=== PATIENT | male | born 1950 | race Caucasian/White ===

== ENCOUNTER → 2019-07-27 10:50 | Outpatient (BNVA) | payer OTHER, SELFPAY | PROVIDERS: Family Provider Family Medicine; PCP Family Medicine; Visit Provider Podiatrist Foot & Ankle Surgery | DX: Z48.89 Encounter for other specified surgical aftercare (principal); S92.512A Displaced fracture of proximal phalanx of left lesser toe(s), initial encounter for closed fracture; X58.XXXA Exposure to other specified factors, initial encounter; Z89.422 Acquired absence of other left toe(s) | CPT/HCPCS: 73630 ==

== ENCOUNTER 2021-08-12 17:44 | Inpatient (IN) | payer OTHER, MEDICARE, SELFPAY ==
[2021-08-12] VITALS (13 sets, daily range): BP systolic 114–221; BP diastolic 64–125; PULSE 68–120; RESP 22–32; TEMP 36.6; O2SAT 56–96; BMI 37.5
--- NOTE | 2021-08-12 17:56 | W.ED.SOB ---
HPI - SOB/Dyspnea General: Chief Complaint: Shortness of Breath/Dyspnea Stated Complaint: SOB Time Seen by Provider: 08/12/21 17:55 Source: patient and family (spouse) Mode of arrival: ambulatory Limitations: no limitations History of Present Illness: HPI Narrative: The patient presents to the emergency department accompanied by his spouse. Together they provide information he has been increasingly short of breath over the last 2 days with which has increased significantly this afternoon. He has a history of diabetes as well as a questionable history of heart failure. No history of arrhythmias that either of them are aware. He has never had an OH that he is aware of. He denies any fevers chills etc. He has been taking all his medications faithfully. MD elicited complaint: shortness of breath Timing: progressively worsening Severity: severe Exacerbating factors: lying flat and exertion Relieving factors: oxygen Known history of: congestive heart failure and diabetes Associated symptoms: Reports orthopnea; Deny abdominal pain, chest pain, extremity pain, fever(s), nausea, palpitations, polydipsia, polyuria or vomiting Review of Systems Const: Denies: fever(s) or chills Eyes: Denies: change in vision or blurry vision ENMT: Denies: throat pain, odynophagia or hoarseness Card: Reports: edema, dyspnea on exertion and orthopnea; Denies: chest pain, palpitations or irregular heart rhythm Resp: Reports: dyspnea; Denies: productive cough, non-productive cough or wheezing GI: Denies: abdominal pain, nausea or vomiting : Denies: flank pain, difficulty urinating or dysuria Musc: Reports: extremity swelling; Denies: neck pain, back pain or extremity pain Skin/Breast: Denies: rash or pruritus Neuro: Reports: numbness in extremities (Chronic); Denies: headache(s) or weakness in extremities Psych: Denies: anxiety, depression or hopelessness Endo: Denies: polyuria or polydipsia Pardeep/Lymph: Denies: easy bruising PFSH ED PFSH: Medical History Chronic kidney disease, stage 1 Diabetes 1.5, managed as type 2 Essential (primary) hypertension History of amputation of great toe Osteomyelitis, unspecified Peripheral vascular disease, unspecified Venous insufficiency Surgical History History of amputation of lesser toe of left foot Family History Father Cancer Stroke Mother Diabetes Denies family history of CAD (coronary artery disease) Clotting disorder Dementia Hyperlipidemia Psychiatric illness Chronic kidney disease (CKD) Suicide Anesthesia complication Bleeding disorder Family history of premature coronary artery disease Lung disease Hypertension Social History Smoking and tobacco status: former smoker Quit status (tobacco): has quit using tobacco Second hand smoke exposure: No Smoking risk assessment/counseling performed?: No Alcohol intake: never Desire information about alcohol rehabilitation?: No Counseling given: No Last alcohol use date: 07/24/18 Desire information about substance/drug rehabilitation?: No Counseling given: No Adopted: No Caregiver/support person: Yes Lives independently: Yes Household members: spouse Housing: House Marital status: Number of children: 6 Number of grandchildren: 11 Highest education level completed: Bachelor's Degree service: Yes Current occupational status: retired Pets and animals: Yes History of recent travel: No Leisure activites: fishing Current gender identity: Male Cindy/Lutheran: Zoroastrian Special cindy needs: No Agree to transfusion: Yes Financial difficulty paying for basics: Not Very Hard Physical Exam Narrative: EXAM NARRATIVE: Patient is clearly anxious, having difficulty breathing and is only able to nod or shake his head yes or no to questions. Const: COMMON NORMALS: patient oriented x3 GENERAL APPEARANCE: in distress and anxious NUTRITIONAL APPEARANCE: obese HENMT: COMMON NORMALS: normocephalic, external ears normal, Normal nasal mucous membranes and turbinates present, moist oral mucous membranes and oropharynx normal HEAD & SCALP: normocephalic NOSE: Normal nasal mucous membranes and turbinates present EXTERNAL EAR: Yes external ears normal Eye: COMMON NORMALS: Equal, round and reactive pupils present and EOMs intact bilaterally PUPIL: Yes Equal, round and reactive pupils present Neck/C-Spine: COMMON NORMALS: full ROM, no lymphadenopathy, no meningeal signs, no JVD and No carotid bruits Lymph: LYMPHATIC: no lymphadenopathy noted Chest: COMMONS NORMALS: normal inspection of the chest and normal palpation of entire chest wall Resp: EFFORT & INSPECTION: Yes tachypneic, Yes labored and Yes uses accessory muscles AUSCULTATION: crackles (Crackles in both lung doss all the way up to scapula level.) Cardio: COMMON NORMALS: no JVD, No murmurs present (Cardio) and Peripheral pulses 2+ throughout RATE: tachycardic PERIPHERAL PULSES: Peripheral pulses 2+ throughout GI: COMMON NORMALS: Soft to palpation, non-tender and no masses PALPATION: Yes Soft to palpation : COMMON NORMALS: Yes no CVA tenderness BLADDER/KIDNEY EXAM: Yes no CVA tenderness Back/Pelvis: COMMON NORMALS: no CVA tenderness, thoracic and lumbar spine normal to inspection and thoraco-lumbar ROM normal Extremity: COMMON NORMALS: normal to inspection, full ROM and capillary refill normal Neuro: COMMON NORMALS: patient oriented x3, moves all extremities, no focal motor deficits and no sensory deficits noted MENINGEAL SIGNS: Yes no meningeal signs Course Reevaluation(s): Reevaluation #1: We have instituted bilevel positive pressure noninvasive ventilatory support as well as sublingual nitroglycerin. The patient's pressure has improved and he is subjectively improved. We will initiate IV Lasix. We will follow his response and start nitroglycerin drip if indicated. Time: 18:19 Reevaluation #2: Patient states he feels significantly improved. He is able to interact with more conversational sentences. His pressure is noted to be down to 116/78. He does have a slight increase in his troponin as well as a BNP elevation. We will go ahead and continue BiPAP and diuresis and repeat EKG. Time: 18:51 Reevaluation #3: Repeat EKG with a heart rate now down and is tracing is much more interpretable shows he has ST elevation in limb leads III with ST depression in limb lead I and aVL with some ST elevation V3 suggestive of possible inferior wall myocardial infarction. The patient was never having chest pain upon presentation still denies chest pain. I have notified cardiology who is in route. They will evaluate for possible adult basic education manager. His initial EKG was indeterminate. Time: 19:25 Additional Reevaluation(s): RN and I had a discussion with both patient and his spouse regarding his reluctance to take heparin. He declined initially but did take the aspirin. We also had a discussion regarding his resuscitation wishes and when he was asked whether he wanted resuscitation his answer was I suppose . Vital Signs: Vital signs: Vital Signs Pulse Rate 90 08/12/21 19:40 Respiratory Rate 22 H 08/12/21 19:40 Blood Pressure 115/79 08/12/21 19:40 Pulse Oximetry 95 08/12/21 19:40 MDM - SOB/Dyspnea Medical Decision Making Patient came to the emergency department with history of progressive intermittent worsening shortness of breath without chest pain. On presentation he was significantly dyspneic with a tachycardic EKG which was nondiagnostic by my determination at his initial presentation. Again he was without chest pain and had dyspnea only. Subsequent evolution and evaluation of this patient's clinical condition revealed that he improved significantly with sublingual nitroglycerin and BiPAP. His chest x-ray was not available for my viewing but was interpreted as bilateral patchy infiltrates by radiology suggestive of possible infection but given his clinical scenario most likely suggested pulmonary congestion. Initial troponin was slightly elevated and subsequently a repeat EKG revealed a much more interpretable EKG with ST elevations in both inferior precordial leads with reciprocal changes noted as well consistent with acute OH. The patient was given aspirin as well as cardiology was consulted and arrived to evaluate the patient for angiography and possible treatment. The patient was significantly clinically improved and again remained pain-free throughout his emergency department evaluation. Should be noted also that we discussed CODE STATUS with patient and spouse at the time of our discussion the patient was in favor of any and all resuscitative efforts. Lab Data I reviewed the patient's lab results. : 08/12/21 18:00 08/12/21 18:00 Labs/Radiology: Radiology Impressions Chest X-Ray 08/12/21 17:59 IMPRESSION: There are patchy bilateral pulmonary opacities consistent with pneumonia. Laboratory Results WBC 7.9 10^3/uL (4.0-10.0) 08/12/21 18:00 RBC 5.85 10^6/uL (4.1-5.3) H 08/12/21 18:00 Hgb 17.8 g/dL (11.7-16.6) H 08/12/21 18:00 Hct 54.0 % (42.0-52.0) H 08/12/21 18:00 MCV 92.3 fl (80-94) 08/12/21 18:00 MCH 30.4 pg (28.0-34.0) 08/12/21 18:00 MCHC 33.0 g/dL (30.0-36.0) 08/12/21 18:00 RDW 12.2 % (12.1-15.1) 08/12/21 18:00 Plt Count 262 10^3/cmm (130-400) 08/12/21 18:00 MPV 11.3 fL (7.4-10.4) H 08/12/21 18:00 Neut % (Auto) 45.9 % 08/12/21 18:00 Lymph % (Auto) 35.1 % 08/12/21 18:00 [place] % (Auto) 17.9 % 08/12/21 18:00 Eos % (Auto) 0.1 % 08/12/21 18:00 Baso % (Auto) 0.6 % 08/12/21 18:00 Neut # (Auto) 3.60 10^3/uL (1.8-7.7) 08/12/21 18:00 Lymph # (Auto) 2.8 10^3/uL (0.8-4.8) 08/12/21 18:00 [place] # (Auto) 1.4 10^3/uL (0.2-0.9) H 08/12/21 18:00 Eos # (Auto) 0.0 10^3/uL (0.0-0.8) 08/12/21 18:00 Baso # (Auto) 0.1 10^3/uL (0.0-0.1) 08/12/21 18:00 Nucleated RBC % (auto) 0 % 08/12/21 18:00 Nucleated RBCs # 0.0 /100WBC 08/12/21 18:00 Sodium 133 mmol/L (136-145) L 08/12/21 18:00 Potassium 3.9 mmol/L (3.5-5.1) 08/12/21 18:00 Chloride 93 mmol/L (98-107) L 08/12/21 18:00 Carbon Dioxide 21 mmol/L (22-29) L 08/12/21 18:00 Anion Gap 22.9 (5-19) H 08/12/21 18:00 BUN 17 mg/dL (8-23) 08/12/21 18:00 Creatinine 1.1 mg/dL (0.7-1.2) 08/12/21 18:00 GFR Calculation Not Reportable 08/12/21 18:00 Glucose 271 mg/dL (65-115) H 08/12/21 18:00 Calculated Osmolality 287 mOsm/kg (285-295) 08/12/21 18:00 Calcium 9.1 mg/dL (8.5-10.5) 08/12/21 18:00 Total Bilirubin 0.6 mg/dL (0.15-1.2) 08/12/21 18:00 AST 24 U/L (0-40) 08/12/21 18:00 ALT 22 U/L (0-41) 08/12/21 18:00 Alkaline Phosphatase 119 IU/L (40-130) 08/12/21 18:00 Troponin T Baseline 35 ng/L (0-15) H 08/12/21 18:00 NT-Pro-B Natriuret Pep 1739 pg/mL (0-125) H 08/12/21 18:00 Total Protein 8.2 g/dL (6.6-8.7) 08/12/21 18:00 Albumin 4.6 g/dL (3.5-5.2) 08/12/21 18:00 Globulin 3.6 g/dL (1.3-4.6) 08/12/21 18:00 Imaging Data CXR: Radiologist's impression: Bilateral infiltrates EKG Data EKG 2: Ischemic changes: acute STEMI Interpretation: EKG #2 shows a heart rate of [address] changes are noted in 3 as well as aVF with depression and limb lead I and ST changes in V3 all suggestive of acute inferior lateral OH. Discharge Plan Discharge Patient Disposition: Admitted As Inpatient Clinical Impression: Congestive heart failure, Acute myocardial infarction Condition: Stable Coding Level of Care Code ED Health And Safety Manager for Iraisg Fwd Exam Comprehensive
--- NOTE | 2021-08-12 17:59 | XRR_ITS ---
PROCEDURE INFORMATION: Exam: XR Chest Exam date and time: 08/12/2021 5:59 PM Age: 71 years old Clinical indication: Dyspnea; Additional info: SOB TECHNIQUE: Imaging protocol: XR of the chest. Views: 1 view. COMPARISON: CR Chest 2 views* 19641 04/15/2019 5:58 AM FINDINGS: Lungs: Patchy bilateral pulmonary opacities. Pleural spaces: Unremarkable. No pleural effusion. No pneumothorax. Heart/Mediastinum: Unremarkable. No cardiomegaly. Diaphragm: Minimal elevation of the left hemidiaphragm is similar to the prior study. Bones/joints: Unremarkable. XR/XR chest 1V portable [id number] IMPRESSION: There are patchy bilateral pulmonary opacities consistent with pneumonia.
--- NOTE | 2021-08-12 18:06 | PC.NURSE ---
PT PLACED ON CONTINUOUS BEDSIDE CARDIAC, BP AND O2 MONITOR. PT ALSO PLACED ON BIPAP.
[2021-08-12] MEDS: nitroglycerin 0.4 mg sublingual Tablet SUBLINGUAL (18:08)
[2021-08-12 18:12] LABS: Basophils # 0.1 10^3/uL (0.0-0.1); Basophils % 0.6 %; Eosinophils % 0.1 %; Hemoglobin 17.8 g/dL (11.7-16.6); Lymphocytes # 2.8 10^3/uL (0.8-4.8); Lymphocytes % 35.1 %; Mean Corpuscular Hemoglobin 30.4 pg (28.0-34.0); Mean Corpuscular Volume 92.3 fl (80-94); Mean Platelet Volume 11.3 fL (7.4-10.4); Monocytes # 1.4 10^3/uL (0.2-0.9); Monocytes % 17.9 %; Neutrophils % 45.9 %; Nucleated Red Blood Cells % 0 %; Platelet Count 262 10^3/cmm (130-400); Red Blood Count 5.85 10^6/uL (4.1-5.3); Red Cell Distribution Width 12.2 % (12.1-15.1); White Blood Count 7.9 10^3/uL (4.0-10.0)
[2021-08-12] MEDS: FUROsemide 10 mg/mL SDV 4mL 40 MG IVP (18:28)
[2021-08-12 18:35] LABS: Troponin(5th) Baseline 35 ng/L (0-15)
[2021-08-12 18:42] LABS: Alanine Aminotransferase 22 U/L (0-41); Albumin Level 4.6 g/dL (3.5-5.2); Alkaline Phosphatase 119 IU/L (40-130); Aspartate Amino Transferase 24 U/L (0-40); Blood Urea Nitrogen 17 mg/dL (8-23); Calcium 9.1 mg/dL (8.5-10.5); Carbon Dioxide 21 mmol/L (22-29); Chloride 93 mmol/L (98-107); Globulin 3.6 g/dL (1.3-4.6); Glucose 271 mg/dL (65-115); NT Pro B Type Natriuretic Pept 1739 pg/mL (0-125); Osmolality Calculated 287 mOsm/kg (285-295); Sodium 133 mmol/L (136-145); Total Bilirubin 0.6 mg/dL (0.15-1.2); Total Protein 8.2 g/dL (6.6-8.7)
[2021-08-12 18:47] LABS: Anion Gap 22.9 (5-19); Potassium 3.9 mmol/L (3.5-5.1)
--- NOTE | 2021-08-12 18:52 | ECG_ITS ---
[facility] Test Date: 2021-08-12 Pat Name: Berry Diaz Department: Room: Gender: Male Silk Blocker: : 1950 Requested By: Gulshan Gill Order Number: [id number] Arciniega MD: Vadim Helton M.D. Measurements Intervals [place] Rate: 86 P: 56 OH: 172 QRS: 111 QRSD: 124 T: 34 QT: 395 QTc: 473 Interpretive Statements SINUS RHYTHM LEFT ATRIAL ENLARGEMENT [-0.15mV P-WAVE IN V1/V2] POSSIBLE RIGHT VENTRICULAR HYPERTROPHY [SOME/ALL OF: PROMINENT R IN V1, LATE TRANSITION, RAD, NINA, SSS] INFERIOR MYOCARDIAL INFARCTION , POSSIBLY ACUTE [40+ ms Q WAVE AND/OR ST/T ABNORMALITY IN II/aVF] ANTEROLATERAL MYOCARDIAL INFARCTION , OF INDETERMINATE AGE [40+ ms Q WAVE IN I/aVL/V3-V6] ACUTE ID Compared to ECG 08/12/2021 17:49:54 Atrial flutter no longer present Myocardial infarct finding still present Electronically Signed On 08-14-2021 12:15:40 UNIT TRUST MANAGER by Vadim Helton M.D. [id number]
--- NOTE | 2021-08-12 19:27 | PC.NURSE ---
PT SECOND EKG TAKEN AND GIVEN TO PT HAVING STEMI, CARDIOLOGY MADE AWARE.
[2021-08-12] MEDS: aspirin 81 mg Chew Tablet 324 MG PO (19:34)
--- NOTE | 2021-08-12 20:00 | ECG_ITS ---
[facility] Test Date: 2021-08-12 Pat Name: Berry Diaz Department: Room: Gender: Male Infrastructure Developer: : 1950 Requested By: Gulshan Gill Order Number: [id number] Demian MD: Vadim Helton M.D. Measurements Intervals [place] Rate: 119 P: [place]: QRS: 113 QRSD: 125 T: 21 QT: 307 QTc: 433 Interpretive Statements SINUS TACYCARDIA POSSIBLE RIGHT VENTRICULAR HYPERTROPHY [SOME/ALL OF: PROMINENT R IN V1, LATE TRANSITION, RAD, NINA, SSS] ANTERIOR MYOCARDIAL INFARCTION , POSSIBLY ACUTE [40+ ms Q WAVE AND/OR ST/T ABNORMALITY IN V3/V4] Compared to ECG 04/15/2019 05:34:56 Sinus rhythm no longer present Intraventricular conduction delay no longer present Myocardial infarct finding still present Electronically Signed On 08-14-2021 12:19:27 RESEARCH MANAGER by Vadim Helton M.D. [id number]
--- NOTE | 2021-08-12 20:03 | XACV_ITS ---
Exam Room: [facility] Ht: 191 cm Wt: 131 kg BSA: 2.68 m2 Gender: Male : 1950 Any Known Allergies: No known allergies Exam Priority: Routine Procedure(s): Procedure Description: Diagnostic procedure Procedure Description: Left Heart Catheterization Procedure Description: Coronary Angiography Diagnostic Cath Status: Emergency Diagnostic Findings * Distal Right Coronary Artery: total occlusion, SOREN: 0 flow. PLV/PDA receive collateral blood supply. * Ramus intermedius artery has 2 branches. Inferior branch has 70-80% stenosis. Upper branch has 60-70% stenosis. * INDICATION: 71-year-old man with past medical history of diabetes and hypertension who has significant peripheral artery disease presented with 2 days of worsening shortness of breath. Today he could not tolerate the symptoms and presented to the hospital with inability to lay down secondary to shortness of breath. He was found to be in pulmonary edema. Initial EKG showed sinus tachycardia. Once heart rate slowed down on BiPAP, EKG showed findings concerning for borderline ST elevations in leads III and aVF and V3 and V4. Given his pulmonary edema, and concerning EKG findings in the absence of chest pain he was emergently taken to the Corporate Securities Research Analyst. . * Left Main: significant 80% stenosis, SOREN: 3 flow. * Proximal Left Anterior Descending: critical 95% stenosis, SOREN: 2 flow. * Mid Right Coronary Artery: severe 90% stenosis, SOREN: 3 flow. * Proximal Circumflex: subtotal occlusion, SOREN: 1 flow. * First Obtuse Marginal Branch Segment: subtotal occlusion, SOREN: 1 flow. * Coronary angiography shows right dominance. Interventional Findings * Procedure detail: Given his severe multivessel coronary artery disease, and total occlusion of distal RCA our plan was to try balloon angioplasty of distal RCA. However he was chest pain-free, had collateral blood supply past the occluded segment and wiring was unsuccessful. After multiple attempts we decided to manage it medically at this time with plan for coronary artery bypass surgery.. Conclusions 1. Severe multivessel coronary artery disease 2. including 3. occluded distal RCA 4. , however 5. PDA/PLV 6. are filled by collateral 7. blood supply.. 8. Severe left main stenosis, critical proximal LAD stenosis, subtotal occlusion of left circumflex/OM, severe mid RCA and total occlusion of distal RCA noted. Ramus intermedius which is a large vessel also has significant stenosis. Recommendations * Patient will need CT surgery evaluation for CABG. Discussion with patient and family held for possible transfer as we do not have CT surgery availability over the weekend and he may decompensate given his presentation. However patient does not want to be transferred at this time. * Transfer to ICU. * Resume heparin drip once TR band is off. * Continue aspirin. No Plavix. * Order echocardiogram. * Continue BiPAP support. * Continue diuresis. Interventional RX Recommendation: CABG Diagnostic RX Recommendation: CABG Anticoagulation: Heparin Pressures Phase:Rest AO : 104 / 59 ( 76 ) @ 3:04:45 PM 95 / 54 ( 72 ) @ 3:04:45 PM 126 / 64 ( 86 ) @ 3:04:45 PM 127 / 53 ( 83 ) @ 3:04:45 PM LV : 132 / 8 / 23 @ 3:04:45 PM 132 / 8 / 24 @ 3:04:45 PM Valves Phase:DefaultPhase AV : 6.0 @ 9:04:45 PM 6.0 @ 9:04:45 PM AV Mean Gradient: 11.0 @ 9:04:45 PM Clinical Evaluation EBL: 5mL-10mL Procedural Details Procedure Consent Obtained. Current Diagnosis : STEMI. Pre-Procedure Time Out. Identified patient by full name and date of as verbalized by the patient/guarantor. Does the consent match the physician's order: Yes. Accurate & Complete Informed Consent: Yes. Inpatient/Outpatient History & Physical on Chart: Yes. Visualize and Verify Site with Patient/Guarantor: N/A. Relevant Radiology Images available: N/A. Pre-op teaching completed and patient verbalized understanding. The risks, benefits, and alternatives of sedation and/or procedure were discussed by physician. The patient agrees to continue. Procedure started. [facility] Clinical Fraility Score: 4: Vulnerable. Corporate Securities Research Analyst Indications: ACS > 24 hours. Chest Pain Symptom Assessment: Atypical Angina. Correct patient, site and procedure confirmed by cath team. Current diagnosis: STEMI. PERRLA. Strong, equal hand acupuncture physician bilaterally. Lungs clear x 5 lobes. IV Site on Arrival: 20 gauge in the left anticubital. IV Fluids: 0.9% NaCl at KVO. 0 mL infused prior to cath lab nurse. Pre Procedural Pulses: bilateral radial was 2+. Pre Procedural Pulses: bilateral dorsalis pedis was 1+. Pt on bipap at 60% O2 at this time. right groin was prepped with chloroprep then draped in the usual sterile fashion. right radial was prepped with chloroprep then draped in the usual sterile fashion. Baseline sample Acquired. HR: 63 BPM. Physician notified. Physician arrived. Physician scrubbed in. Immediate Pre-Procedure Time Out. Correct Patient: Yes; Correct Procedure: Yes; Correct Site: Yes; Correct Patient Position: Yes; Correct Supplies: Yes; Dried Flammable Prep: N/A; Blood Products Available: N/A;. Lidocaine 1% infiltrated to the right radial. Arterial access obtained. A 5 kazakh TIG catheter in over wire. Multiple views taken of left coronary artery. Catheter redirected to the RCA. Multiple views taken of right coronary artery. Catheter out. 6 kazakh JR 4 guide catheter was inserted over the wire. Runthrough guidewire was advanced through the guide catheter to lesion in the distal RCA. Balloon inserted to lesion in the distal RCA. Balloon and wire out. EDP Sample taken: LV 132/8,23; HR: 79 BPM; SpO2: 97%. Pullback taken: LV 132/8,24; AO 126/64(86); Mean: 11mmHg, Peak to Peak: 6mmHg, SEP: 20sec/min; HR: 79 BPM; SpO2: 97%. Guide catheter out. A TR Band was successful obtaining hemostatsis at the Right Radial artery insertion site. Post Procedure: Pulses reassessed and unchanged. PERRLA. Strong, equal hand acupuncture physician bilaterally. No VTE prophylaxis required. Medication's Wasted: Lidocaine 1% = 18 mL. Medication's Wasted: Nitro = 49.8 mg. Medication's Wasted: Heparin = 1000 u. Total IV fluids: 50 mL. Post-op diagnosis: Severe multi vessel CAD. Complications: none. Estimated blood loss: 5mL-10mL. Responsiveness - Normal response to verbal stimuli; alert and oriented, PERRLA. Airway - Unaffected, no intervention required; spontaneous ventilation. Circulation: W/N/L, pulses unchanged. Nausea/Vomiting: No. Procedure completed. Patient transferred by bed to ICU. Vital chart was stopped. Access Site Site: Right Radial artery Sheath Size: 6 Fr Hemostasis Method: TR Band Hemostasis Success: Successful Procedure Medications Start: 8:23 PM Stop: 8:23 PM Medication: Versed Amount: 1 mg Route: I.V. Start: 8:24 PM Stop: 8:24 PM Medication: Fentanyl Amount: 25 mcg Route: I.V. Start: 8:24 PM Stop: 8:24 PM Medication: Heparin Amount: 5000 units Route: I.V. Start: 8:25 PM Stop: 8:25 PM Medication: Nitrogylcerin Amount: 200 mcg Route: I.A. Start: 8:34 PM Stop: 8:34 PM Medication: Heparin Amount: 5000 units Route: I.V. I, the attending physician, have reviewed and verified all procedure medications. Yes, all medications given per verbal order Report Signatures Finalized by Vadim Helton MD on 08/13/2021 10:25 AM
--- NOTE | 2021-08-12 20:08 | PM.HP ---
Providers/Chief Complaint Primary Care Provider: Kam Howe Chief Complaint: SOB History of Present Illness Berry Diaz is a 71 year old male with past medical history of hypertension, diabetes has presented with 2 days of worsening shortness of breath. Today at 4 PM, he had acute worsening of shortness of breath and that he could not breathe well. He decided to come to the emergency room. Initial EKG showed sinus tachycardia with a heart rate of 119 bpm. Once heart rate was slowed down, he had borderline ST elevations in V3 V4 and lead III and aVF. Special Procedures Tech was activated. Coronary angiogram demonstrated severe multivessel coronary artery disease including severe left main stenosis, subtotal occlusion of left circumflex artery, critical long lesion of LAD, severe mid RCA stenosis and total occlusion of distal RCA with collateral blood supply. He was chest pain-free. His breathing had improved significantly post diuresis and on BiPAP. We briefly attempted wiring of distal RCA with intent of performing balloon angioplasty however given his collaterals, lack of chest pain and difficulty wiring, further attempts were aborted. Review of Systems Const: Denies: fever(s) or chills Eyes: Denies: change in vision or blurry vision ENMT: Denies: throat pain, odynophagia or hoarseness Card: Reports: edema, dyspnea on exertion and orthopnea; Denies: chest pain, palpitations or irregular heart rhythm Resp: Reports: dyspnea; Denies: productive cough, non-productive cough or wheezing GI: Denies: abdominal pain, nausea or vomiting : Denies: flank pain, difficulty urinating or dysuria Musc: Reports: extremity swelling; Denies: neck pain, back pain or extremity pain Skin/Breast: Denies: rash or pruritus Neuro: Reports: numbness in extremities (Chronic); Denies: headache(s) or weakness in extremities Psych: Denies: anxiety, depression or hopelessness Endo: Denies: polyuria or polydipsia Pardeep/Lymph: Denies: easy bruising Medications/Allergies Home Medications Medication Instructions Recorded Confirmed Last Taken Type difluprednate 0.05 % eye drops 1 drop OPHTHALMIC (EYE) BID 06/23/19 08/12/21 Unknown History furosemide 40 mg tablet 40 mg PO DAILY 06/23/19 08/12/21 08/12/21 History insulin regular human 100 unit/mL See Rx Instructions .ROUTE .COMPLEX 06/23/19 08/12/21 Unknown History injection solution (Humulin R Regular U-100 Insulin) lisinopril 40 mg tablet 40 mg PO BID 06/23/19 08/12/21 08/12/21 History metoprolol succinate 100 mg 100 mg PO BID 06/23/19 08/12/21 08/12/21 History tablet,extended release 24 hr mupirocin 2 % topical ointment 1 applic TOPICAL BID #22 gm 07/27/19 08/12/21 Unknown Rx aspirin 81 mg tablet,delayed 81 mg PO DAILY 08/12/21 08/12/21 08/12/21 History release (Aspirin Low Dose) gabapentin 400 mg capsule 400 mg PO TID 08/12/21 08/12/21 08/12/21 History insulin glargine 100 unit/mL (3 See Rx Instructions .ROUTE .COMPLEX 08/12/21 08/12/21 08/12/21 History mL) subcutaneous pen (Lantus Solostar U-100 Insulin) Allergies Allergy/AdvReac Type Severity Reaction Status Date / Time No Known Allergies Allergy Verified 08/12/21 17:54 PFSH Acute PFSH: Medical History Chronic kidney disease, stage 1 Diabetes 1.5, managed as type 2 Essential (primary) hypertension History of amputation of great toe Osteomyelitis, unspecified Peripheral vascular disease, unspecified Venous insufficiency Surgical History History of amputation of lesser toe of left foot Family History Father Cancer Stroke Mother Diabetes Denies family history of CAD (coronary artery disease) Clotting disorder Dementia Hyperlipidemia Psychiatric illness Chronic kidney disease (CKD) Suicide Anesthesia complication Bleeding disorder Family history of premature coronary artery disease Lung disease Hypertension Social History Smoking and tobacco status: former smoker Quit status (tobacco): has quit using tobacco Second hand smoke exposure: No Smoking risk assessment/counseling performed?: No Alcohol intake: never Desire information about alcohol rehabilitation?: No Counseling given: No Last alcohol use date: 07/24/18 Desire information about substance/drug rehabilitation?: No Counseling given: No Adopted: No Caregiver/support person: Yes Lives independently: Yes Household members: spouse Housing: House Marital status: Number of children: 6 Number of grandchildren: 11 Highest education level completed: Bachelor's Degree service: Yes Current occupational status: retired Pets and animals: Yes History of recent travel: No Leisure activites: fishing Current gender identity: Male Cindy/Caodaism: Lutheran Special cindy needs: No Agree to transfusion: Yes Financial difficulty paying for basics: Not Very Hard Vitals/I&O/Wt Last Vital Signs Pulse 90 08/12/21 19:40 Resp 22 H 08/12/21 19:40 BP 115/79 08/12/21 19:40 Pulse Ox 95 08/12/21 19:40 Weight last 48 hrs Weight 277 lb Physical Exam Narrative: GENERAL: Patient is alert, awake and oriented x3. On BiPAP [] NECK: No jugular vein distension. [] HEENT: No cyanosis. No icterus. No pallor. [] HEART: Regular S1 and S2. No murmur, rub or gallop. [] LUNGS: Has bilateral crackles ABDOMEN: Soft, nontender and nondistended. Positive bowel sounds. No guarding, rebound or tenderness. [] CENTRAL NERVOUS SYSTEM: Grossly nonfocal. [] EXTREMITIES: Lower extremities with 1+ edema bilaterally. Pulses palpable in the lower extremities, both dorsalis pedis and posterior tibial. [] Data : 08/12/21 18:00 08/12/21 18:00 A&P Assessment and plan (1) Acute myocardial infarction: Status: Acute (2) Congestive heart failure: Status: Acute (3) Diabetes 1.5, managed as type 2: Status: Acute (4) Peripheral vascular disease, unspecified: Status: Acute (5) Respiratory failure: Status: Acute Plan Patient has presented with respiratory distress and was noted to have borderline ST elevations in leads III and aVF and V3 V4 with ST depressions in lateral leads. Special Procedures Tech was activated. Aspirin given. Patient initially refused heparin however was agreeable to it later. Coronary angiogram demonstrating severe multivessel coronary artery disease including severe left main stenosis, critical proximal to mid LAD stenosis, subtotal occlusion of proximal circumflex artery, severe mid RCA stenosis and total occlusion of distal RCA with collaterals supplying PDA and PLV. Brief attempt at performing balloon angioplasty of distal RCA was aborted after difficult wiring and presence of collaterals in setting of lack of chest pain. Patient will need evaluation for CABG. I discussed with patient that we do not have CT surgery available over the weekend and we can transfer him tonight. However patient does not want to be transferred and wants to wait for CT surgery to return. I also discussed with his the situation that he may decompensate over the weekend and my recommendation would be to transfer. She understands that. Patient also showed understanding however wants to stay at our facility. Hold Plavix. Continue IV Lasix. Strict I&O's. Order echocardiogram. Continue Bipap We will consult medicine team for management of diabetes. Attestations Medical Necessity Statement*: Care expected to cross 2 midnights. Patient has presented with respiratory failure and is currently on BiPAP. Coronary angiogram shows severe multivessel coronary artery disease and he will need CABG. Coding Level of Care Code Acute Product Tester for Uri Narayan Diagnoses Acute myocardial infarction I21.9 Congestive heart failure I50.9 Diabetes 1.5, managed as type 2 E13.9 Peripheral vascular disease, unspecified I73.9 Respiratory failure J96.90
[2021-08-12 20:15] LABS: INR 1.02 (0.8-1.2)
[2021-08-12 20:16] LABS: Partial Thromboplastin Time 32.8 SECONDS (23.9-36.7)
[2021-08-12 20:42] LABS: Troponin 5 2HR 232.3 ng/L (0-15); Troponin 5 2HR Delta 197.3 ABS# (0-10)
--- NOTE | 2021-08-12 21:30 | PC.NURSE ---
Dr. Helton bedside at 2125. Verbal orders to restart heparin drip 1.5 hours after TR band removed at previous running rate and orders for a one time IVP lasix 20mg.
[2021-08-12] MEDS: FUROsemide 10 mg/mL SDV 2mL 20 MG IVP (22:01)
--- NOTE | 2021-08-12 23:12 | P.CONIM_ITS ---
Providers/Reason For Consult Consulting Physician/Specialty*: Amber Gaitan MD/Hospitalist Reason for Consult*: medical comorbidities management including DM Requesting Physician: Dr. Grace Helton Attending Physician: Vadim Helton M.D Primary Care Provider: Kam Howe History of Present Illness History of Present Illness Berry Diaz is a 71 year old male with PMH DM, HTN, PAD, peripheral neuropathy presented to the ER today with shortness of breath, found to have pulmonary edema and STEMI, needed Bipap support. Underwent LHC with Dr. Gutierrez earlier this evening and found to have severe multivessel disease including severe left main stenosis, critical proximal to mid LAD stenosis, subtotal occlusion of proximal circumflex artery, severe mid RCA stenosis and total occlusion of distal RCA with collaterals supplying PDA and PLV.? Brief attempt at performing balloon angioplasty of distal RCA was aborted after difficult wiring and presence of collaterals in setting of lack of chest pain. Patient will need evaluation for CABG eventually. He declined transfer to facility with CT surgery services today. Hospitalist service consulted for management of medical comorbidities including DM. Review of Systems General: Reports: 10 or more systems reviewed and unremarkable except in HPI and below Const: Denies: fever(s), chills or body aches Eyes: Denies: change in vision, blurry vision or photophobia ENMT: Reports: hoarseness; Denies: throat pain, enlarged tonsils, odynophagia or nasal congestion Card: Denies: chest pain, palpitations, irregular heart rhythm, edema, swelling of feet/ankles, lightheadedness, pre-syncope, dyspnea on exertion or orthopnea Resp: Denies: dyspnea, productive cough, non-productive cough, wheezing, stridor, pain on inspiration, change in phlegm color, hemoptysis or chest congestion GI: Denies: abdominal pain, nausea, vomiting, hematemesis, coffee ground emesis, dysphagia, heartburn, diarrhea, constipation, GI cramping, change in stool character, hematochezia or melena : Denies: flank pain, dysuria, urinary frequency, urinary urgency, urinary hesitancy or hematuria Musc: Denies: neck pain, back pain, extremity pain, joint swelling, joint warmth or deformity Neuro: Denies: headache(s), numbness in extremities, weakness in extremities, sensory changes, difficulty walking, frequent falls, dizziness, vertigo, behavioral changes, Slurred speech present or seizure-like activity Psych: Denies: anxiety, depression, suicidal ideation or homicidal ideation Endo: Denies: polyuria, polydipsia, tired all the time, cold intolerance or hot flashes Pardeep/Lymph: Denies: easy bruising or easy bleeding Medications/Allergies Home Medications Medication Instructions Recorded Confirmed Last Taken Type difluprednate 0.05 % eye drops 1 drop OPHTHALMIC (EYE) BID 06/23/19 08/12/21 Unknown History furosemide 40 mg tablet 40 mg PO DAILY 06/23/19 08/12/21 08/12/21 History insulin regular human 100 unit/mL See Rx Instructions .ROUTE .COMPLEX 06/23/19 08/12/21 Unknown History injection solution (Humulin R Regular U-100 Insulin) lisinopril 40 mg tablet 40 mg PO BID 06/23/19 08/12/21 08/12/21 History metoprolol succinate 100 mg 100 mg PO BID 06/23/19 08/12/21 08/12/21 History tablet,extended release 24 hr mupirocin 2 % topical ointment 1 applic TOPICAL BID #22 gm 07/27/19 08/12/21 Unknown Rx aspirin 81 mg tablet,delayed 81 mg PO DAILY 08/12/21 08/12/21 08/12/21 History release (Aspirin Low Dose) gabapentin 400 mg capsule 400 mg PO TID 08/12/21 08/12/21 08/12/21 History insulin glargine 100 unit/mL (3 See Rx Instructions .ROUTE .COMPLEX 08/12/21 08/12/21 08/12/21 History mL) subcutaneous pen (Lantus Solostar U-100 Insulin) Allergies Allergy/AdvReac Type Severity Reaction Status Date / Time No Known Allergies Allergy Verified 08/12/21 17:54 Current Medications Generic Name Dose Route Start Last Admin Trade Name Freq PRN Reason Stop Dose Admin Furosemide 60 mg 08/12/21 21:30 08/12/21 21:58 Furosemide 10 Mg/Ml Sdv 10ml IVP Not Given Q12H ULI Nitroglycerin 0.4 mg 08/12/21 17:59 08/12/21 18:08 Nitroglycerin 0.4 Mg Sublingual Tablet SUBLINGUAL 1 tab Q5M PRN Administration CHEST PAIN PFSH Acute PFSH: Medical History Chronic kidney disease, stage 1 Diabetes 1.5, managed as type 2 Essential (primary) hypertension History of amputation of great toe Osteomyelitis, unspecified Peripheral vascular disease, unspecified Venous insufficiency Surgical History History of amputation of lesser toe of left foot Family History Father Cancer Stroke Mother Diabetes Denies family history of CAD (coronary artery disease) Clotting disorder Dementia Hyperlipidemia Psychiatric illness Chronic kidney disease (CKD) Suicide Anesthesia complication Bleeding disorder Family history of premature coronary artery disease Lung disease Hypertension Social History Smoking and tobacco status: former smoker Quit status (tobacco): has quit using tobacco Second hand smoke exposure: No Smoking risk assessment/counseling performed?: No Alcohol intake: never Desire information about alcohol rehabilitation?: No Counseling given: No Last alcohol use date: 07/24/18 Desire information about substance/drug rehabilitation?: No Counseling given: No Adopted: No Caregiver/support person: Yes Lives independently: Yes Household members: spouse Housing: House Marital status: Number of children: 6 Number of grandchildren: 11 Highest education level completed: Bachelor's Degree service: Yes Current occupational status: retired Pets and animals: Yes History of recent travel: No Leisure activites: fishing Current gender identity: Male Cindy/Presybeterian: Religious Special cindy needs: No Agree to transfusion: Yes Financial difficulty paying for basics: Not Very Hard Vitals/I&O/Wt Last Vital Signs Pulse 90 08/12/21 19:40 Resp 22 H 08/12/21 19:40 BP 115/79 08/12/21 19:40 Pulse Ox 95 08/12/21 19:40 Weight last 48 hrs Weight 125.645 kg Physical Exam Narrative: GEN: Awake, alert and oriented, no acute distress CVS: S1S2 N RS: CTA B/L all areas Abd: Soft, nt/nd , bs+ DRAFTER CARTOGRAPHIC: no focal neuro deficits Data : 08/12/21 18:00 08/12/21 18:00 A&P Assessment and plan (1) Congestive heart failure: Currently pending echocardiogram s/p lasix 60mg iv and continued on lasix 60mg iv q12h CXR per radiology report with B/L infiltrates, unable to open images for direct review at this time currently 95% on 4lpm Status: Acute (2) Acute myocardial infarction: s/p LHC earlier this evening findings of severe multivessel CAD, will need evaluation for CABG management per cardiology Status: Acute (3) Diabetes 1.5, managed as type 2: Resume home dose of Lantus 40U BID and start medium dose insulin sliding scale check Hba1c Status: Acute Consult Attestations Medical Necessity Statement: per admitting note Coding Level of Care Code Acute Aircraft Engine Specialist for Uri Narayan Diagnoses Congestive heart failure I50.9 Acute myocardial infarction I21.9 Diabetes 1.5, managed as type 2 E13.9
[2021-08-12 23:38] LABS: Estmated Average Glucose 183
[2021-08-13] VITALS (35 sets, daily range): BP systolic 126–163; BP diastolic 58–80; PULSE 69–91; RESP 13–23; TEMP 37.1; O2SAT 93–98
--- NOTE | 2021-08-13 | ECG_ITS ---
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 Measurements Intervals [place] Rate: 92 P: 56 [place]: 169 QRS: 106 QRSD: 134 T: 44 QT: 380 QTc: 471 Interpretive Statements SINUS RHYTHM RIGHT AXIS DEVIATION [QRS AXIS > 100] INTRAVENTRICULAR CONDUCTION DELAY [130+ ms QRS DURATION] INFERIOR MYOCARDIAL INFARCTION , OF INDETERMINATE AGE [40+ ms Q WAVE AND/OR ST/T ABNORMALITY IN II/aVF] ANTEROLATERAL MYOCARDIAL INFARCTION , OF INDETERMINATE AGE [40+ ms Q WAVE IN I/aVL/V3-V6] Compared to ECG 08/12/2021 19:19:05 Right-axis deviation now present Intraventricular conduction delay now present Atrial abnormality no longer present Myocardial infarct finding still present Electronically Signed On 08-14-2021 12:18:02 EDUCATIONAL ADMINISTRATION TEACHER by Vadim Helton M.D. [email or web address]
[2021-08-13 01:26] LABS: Troponin 5 6HR 972.2 ng/L (0-15)
[2021-08-13 01:27] LABS: Troponin 5 6HR Delta 937.2 ng/L (0-12)
[2021-08-13 03:28] LABS: Basophils % 0.2 %; Hematocrit 45.8 % (42.0-52.0); Hemoglobin 15.1 g/dL (11.7-16.6); Lymphocytes # 0.9 10^3/uL (0.8-4.8); Lymphocytes % 17.3 %; Mean Corpuscular Hemoglobin 30.5 pg (28.0-34.0); Mean Corpuscular Volume 92.5 fl (80-94); Mean Platelet Volume 11.3 fL (7.4-10.4); Monocytes % 18.1 %; Neutrophils # 3.36 10^3/uL (1.8-7.7); Nucleated Red Blood Cells % 0 %; Platelet Count 183 10^3/cmm (130-400); Red Blood Count 4.95 10^6/uL (4.1-5.3); Red Cell Distribution Width 12.5 % (12.1-15.1); White Blood Count 5.3 10^3/uL (4.0-10.0)
[2021-08-13] MEDS: pantoprazole DR 40 mg Tablet PO ×2 (03:36→08:34)
[2021-08-13 03:48] LABS: Anion Gap 16.3 (5-19); Blood Urea Nitrogen 24 mg/dL (8-23); Calcium 8.4 mg/dL (8.5-10.5); Carbon Dioxide 25 mmol/L (22-29); Chloride 99 mmol/L (98-107); Glucose 235 mg/dL (65-115); Osmolality Calculated 294 mOsm/kg (285-295); Potassium 4.3 mmol/L (3.5-5.1); Sodium 136 mmol/L (136-145)
[2021-08-13] MEDS: fentaNYL 50 mcg/mL INJ 2mL IVP ×2 (05:07→07:24)
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
--- NOTE | 2021-08-13 06:05 | PC.NURSE ---
Paged Dr. Gaitan at 0604, lab called at 0558 reporting a positive cdiff sample. Orders for vancomycin 125mg qid orally.
[2021-08-13] MEDS: amlodipine 5 mg Tablet PO ×2 (06:09→09:58)
[2021-08-13] MEDS: metoprolol succinate ER (24 HR) 25 mg Tablet PO (06:09)
[2021-08-13] MEDS: hyDRALAzine 20 mg/mL INJ 1 mL 10 MG IVP (06:32)
--- NOTE | 2021-08-13 06:57 | PC.NURSE ---
Patient remained alert and oriented throughout the night. NSR with a rate in the 70-90's. Blood pressure remained with a systolic less than 165 until 0500. See previous note in regards to paging Dr. Helton. Gave the metoprolol and amlodipine per Dr. Helton's orders. Systolic came back 230 around 0630, so I gave the prn hydralazine per orders. Patient remained clear and diminished respiratory sheppard and on 4LNC all night. Patient tested positive for c.diff; he had around 5 bowel movements. Liquid and watery, brown in color. Patient does complain of abdominal discomfort, but no nausea. TR band off as of 0500 this morning. Some urine output mixed in with stool and unable to measure. Measurable urine output around 300ml. No complaints of chest pain and no complaints of shortness of breath. No further concerns at this time. Report passed along to dayshift RN.
[2021-08-13] MEDS: nitroglycerin 0.4 mg sublingual Tablet SUBLINGUAL ×2 (07:00→07:10)
[2021-08-13] MEDS: hyDRALAzine 20 mg/mL INJ 1 mL IVP (07:23)
--- NOTE | 2021-08-13 07:33 | PC.NURSE ---
Change in condition- Approximately 0700- patient became short of breath and reporting chest pain. Blood pressure 228/125. 50fent and [address] Helton called and orders received to give 20mg of hydralazine and start nitro drip.
[2021-08-13] MEDS: nitroglycerin drip 50 MG/250 ML PREMIX IV (07:43)
[2021-08-13 08:33] LABS: Glucose Point of Care 264 mg/dL (70-110)
[2021-08-13] MEDS: aspirin 81 mg EC Tablet PO (08:34)
[2021-08-13] MEDS: insulin glargine 100 units/1 mL 40 UNIT SUBCUT (08:34)
[2021-08-13] MEDS: gabapentin 400 mg Capsule PO ×3 (08:34→20:55)
[2021-08-13] MEDS: insulin lispro 100 unit/1 mL SUBCUT ×4 (08:35→20:57)
[2021-08-13 09:07] LABS: Chol HDL Ratio 4.11 mg/dL (1.0-5.00); Cholesterol 156 mg/dL (0-200); HDL Cholesterol 38 mg/dL (60-100); LDL Cholesterol Calculated 103 mg/dL (50-129); LDL HDL Ratio 2.71 RATIO (0.00-3.22); Triglycerides 76 mg/dL (0-150)
[2021-08-13] MEDS: perflutren protein-a microsphr 0.22 mg/mL SDV 3 mL IV (09:23)
[2021-08-13] MEDS: metoprolol tartrate 50 mg Tablet PO ×2 (09:58→20:55)
[2021-08-13] MEDS: FUROsemide 10 mg/mL SDV 4mL 40 MG IVP (09:58)
--- NOTE | 2021-08-13 10:26 | PM.PN ---
Subjective Subjective: Patient had hypertensive episode this AM. Was put on nitro gtt. Also was put back on Bipap. Now is feeling better and is chest pain free. Vitals/I&O/Wt Last Vital Signs Temp 98.8 F 08/13/21 06:22 Pulse 91 08/13/21 07:30 Resp 22 H 08/13/21 07:30 BP 115/79 08/12/21 19:40 Pulse Ox 98 08/13/21 07:30 08/12/21 08/13/21 08/13/21 22:59 06:59 14:59 Intake Total 15.85 / 15.85 Output Total 400 / 400 Balance -400 / -400 15.85 / 15.85 Weight last 48 hrs Weight 277 lb Physical Exam Narrative: GENERAL: Patient is alert, awake and oriented x3. On BiPAP [] NECK: No jugular vein distension. [] HEENT: No cyanosis. No icterus. No pallor. [] HEART: Regular S1 and S2. No murmur, rub or gallop. [] LUNGS: Has bilateral crackles ABDOMEN: Soft, nontender and nondistended. Positive bowel sounds. No guarding, rebound or tenderness. [] CENTRAL NERVOUS SYSTEM: Grossly nonfocal. [] EXTREMITIES: Lower extremities with 1+ edema bilaterally. Pulses palpable in the lower extremities, both dorsalis pedis and posterior tibial. [] Data : 08/13/21 02:53 08/13/21 02:53 Micro: Microbiology 08/13/21 03:25 C.difficile Toxin B Gene (PCR) - Final Stool - Stool Aspirate A&P Assessment and plan (1) Acute myocardial infarction: Status: Acute (2) Congestive heart failure: Status: Acute (3) Diabetes 1.5, managed as type 2: Status: Acute (4) Peripheral vascular disease, unspecified: Status: Acute (5) Respiratory failure: Status: Acute Plan Patient has presented with respiratory distress and was noted to have borderline ST elevations in leads III and aVF and V3 V4 with ST depressions in lateral leads. Cupola Liner Helper was activated. Aspirin given. Patient initially refused heparin however was agreeable to it later. Coronary angiogram demonstrating severe multivessel coronary artery disease including severe left main stenosis, critical proximal to mid LAD stenosis, subtotal occlusion of proximal circumflex artery, severe mid RCA stenosis and total occlusion of distal RCA with collaterals supplying PDA and PLV. Brief attempt at performing balloon angioplasty of distal RCA was aborted after difficult wiring and presence of collaterals in setting of lack of chest pain. Last night patient wanted to stay at hospital and wait for CT surgery evaluation on Saturday once Dr Mcrae is back. However, was informed that there is possibility hospital may not be able to perform CABG because of lack of post CABG care staff in ICU. I discussed the situation with patient and his family and they have agreed to be transferred. [facility] in [place] has accepted patient for transfer. Hold Plavix. Continue IV Lasix. Strict I&O's. ECHO is limited quality but LV EF is 40-45% BiPAP as neeeded Medicine team consulted for management of diabetes. Appreciate recs. Attestations Medical Necessity Statement*: Care expected to cross 2 midnights. Patient presented with pulmonary edema and was found to have transient ST elevations. Coronary angiogram showed severe multivessel coronary artery disease. Plan for transferring patient out for CABG. Coding Level of Care Code Acute Control Technician for Uri Narayan Diagnoses Acute myocardial infarction I21.9 Congestive heart failure I50.9 Diabetes 1.5, managed as type 2 E13.9 Peripheral vascular disease, unspecified I73.9 Respiratory failure J96.90
[2021-08-13] MEDS: HYDROcodone-acetaminophen 5-325 mg Tablet 1 TAB PO ×2 (11:09→19:41)
--- NOTE | 2021-08-13 11:18 | P.TS_ITS ---
Transfer Summary Providers Date of Admission: 08/12/21 20:59 Date of Discharge/Transfer: 08/13/21 Attending Provider at Admission: Amber Gaitan MD Attending Provider at Transfer: Vadim Helton M.D Consults: Internal medicine: Dr. Jennings Primary Care Provider: Kam Howe Transfer Plans: Anticipated date of transfer: 08/13/21 . Receiving Facility: [facility] . Receiving Provider: Dr. Russo . Diagnoses at Discharge Discharge Diagnosis (1) Acute myocardial infarction: Status: Acute (2) Congestive heart failure: Status: Acute (3) Diabetes 1.5, managed as type 2: Status: Acute (4) Peripheral vascular disease, unspecified: Status: Acute (5) Respiratory failure: Status: Acute Reason for Visit Reason for Visit SOB Hospital Course Hospital Course Berry Diaz is a 71 year old male with PMH with type 2 diabetes mellitus, HTN, PAD, leading to right great toe amputation, left great toe amputation with osteomyelitis ,peripheral neuropathy presented to the ER today with shortness of breath, found to have pulmonary edema and STEMI, needed Bipap support. Underwent LHC with Dr. Gutierrez earlier this evening and found to have severe multivessel disease including severe left main stenosis, critical proximal to mid LAD stenosis, subtotal occlusion of proximal circumflex artery, severe mid RCA stenosis and total occlusion of distal RCA with collaterals supplying PDA and PLV.? Brief attempt at performing balloon angioplasty of distal RCA was aborted after difficult wiring and presence of collaterals in setting of lack of chest pain. Patient was transferred to ICU for further care. Overnight patient did not have any further chest pain but did have episode of hypotension after which she went into pulmonary edema again and placed on BiPAP. Patient has remained comfortable on nitro drip. His blood pressures his antihypertensives including amlodipine and metoprolol doses have been adjusted. Patient has developed acute kidney injury as well with creatinine bumping up to 1.3 from 0.9. Medical reconciliation has been done as per kidney functions. Due to critical CAD with left main triple-vessel disease leading to pulmonary edema patient is in need for CABG. As CT surgeon is not available over the weekend patient was suggested to be transferred to higher facility for CABG as soon as possible. Patient was agreeable. Multiple attempts to transfer to a higher facility was made. Finally patient was accepted by Dr. Russo at [facility] has been transferred via air EVAC. Physical Exam Narrative: GENERAL: Patient is alert, awake and oriented x3. On BiPAP NECK: No jugular vein distension. HEENT: No cyanosis. No icterus. No pallor HEART: Regular S1 and S2. No murmur, rub or gallop. LUNGS: Has bilateral crackles ABDOMEN: Soft, nontender and nondistended. Positive bowel sounds. No guarding, rebound or tenderness. CENTRAL NERVOUS SYSTEM: Grossly nonfocal. EXTREMITIES: Lower extremities with 1+ edema bilaterally.Pulses palpable in the lower extremities, both dorsalis pedis and posterior tibial. TS Data Studies Completed and Pending Pending at discharge Category Date Time Status COVID [SARS Covid-2 Antigen] Routine Lab 08/12/21 20:42 Ordered COVID [SARS Covid-2 Antigen] Routine Lab 08/13/21 11:14 Ordered Complete Blood Count w/Auto AM LABS Lab 08/14/21 04:00 Ordered Complete Blood Count w/Auto AM LABS Lab 08/15/21 04:00 Ordered Comprehensive Metabolic Panel AM LABS Lab 08/14/21 04:00 Ordered Comprehensive Metabolic Panel AM LABS Lab 08/15/21 04:00 Ordered Comprehensive Metabolic Panel AM LABS Lab 08/16/21 04:00 Ordered Urinalysis Routine Lab 08/13/21 07:45 Uncollected Urine Creatinine Routine Lab 08/13/21 07:45 Uncollected Urine Eosinophils Routine Lab 08/13/21 07:45 Uncollected Urine Random Lytes Routine Lab 08/13/21 07:45 Uncollected CV. echo wo/w contrast [id number] Routine Ultrasound 08/13/21 21:19 Taken Labs from last 24 hours 08/13/21 08/13/21 08/13/21 08:29 02:53 02:53 WBC RBC Hgb Hct MCV MCH MCHC RDW Plt Count MPV Neut % (Auto) Lymph % (Auto) [place] % (Auto) Eos % (Auto) Baso % (Auto) Neut # (Auto) Lymph # (Auto) [place] # (Auto) Eos # (Auto) Baso # (Auto) Nucleated RBC % (auto) Nucleated RBCs # PT INR APTT Sodium 136 Potassium 4.3 Chloride 99 Carbon Dioxide 25 Anion Gap 16.3 BUN 24 H Creatinine 1.3 H GFR Calculation Not Reportable Glucose 235 H POC Glucose 264 H Estimat Average Glucose Hemoglobin A1c Calculated Osmolality 294 Calcium 8.4 L Total Bilirubin AST ALT Alkaline Phosphatase Troponin T Baseline Troponin T 120 Minute Delta Troponin T Troponin T Hi Sens 6Hr Troponin T Hi Sens 6Hr Delta NT-Pro-B Natriuret Pep Total Protein Albumin Globulin Triglycerides 76 Cholesterol 156 LDL Cholesterol, Calc 103 HDL Cholesterol 38 L LDL/HDL Ratio 2.71 Cholesterol/HDL Ratio 4.11 08/13/21 08/13/21 08/12/21 02:53 00:20 19:56 WBC 5.3 RBC 4.95 Hgb 15.1 Hct 45.8 MCV 92.5 MCH 30.5 MCHC 33.0 RDW 12.5 Plt Count 183 D MPV 11.3 H Neut % (Auto) 64.0 Lymph % (Auto) 17.3 [place] % (Auto) 18.1 Eos % (Auto) 0.0 Baso % (Auto) 0.2 Neut # (Auto) 3.36 Lymph # (Auto) 0.9 [place] # (Auto) 1.0 H Eos # (Auto) 0.0 Baso # (Auto) 0.0 Nucleated RBC % (auto) 0 Nucleated RBCs # 0.0 PT INR APTT Sodium Potassium Chloride Carbon Dioxide Anion Gap BUN Creatinine GFR Calculation Glucose POC Glucose Estimat Average Glucose Hemoglobin A1c Calculated Osmolality Calcium Total Bilirubin AST ALT Alkaline Phosphatase Troponin T Baseline Troponin T 120 Minute 232.3 H Delta Troponin T 197.3 H* Troponin T Hi Sens 6Hr 972.2 H Troponin T Hi Sens 6Hr Delta 937.2 H* NT-Pro-B Natriuret Pep Total Protein Albumin Globulin Triglycerides Cholesterol LDL Cholesterol, Calc HDL Cholesterol LDL/HDL Ratio Cholesterol/HDL Ratio 08/12/21 08/12/21 08/12/21 18:00 18:00 18:00 WBC RBC Hgb Hct MCV MCH MCHC RDW Plt Count MPV Neut % (Auto) Lymph % (Auto) [place] % (Auto) Eos % (Auto) Baso % (Auto) Neut # (Auto) Lymph # (Auto) [place] # (Auto) Eos # (Auto) Baso # (Auto) Nucleated RBC % (auto) Nucleated RBCs # PT 13.70 INR 1.02 APTT 32.8 Sodium Potassium Chloride Carbon Dioxide Anion Gap BUN Creatinine GFR Calculation Glucose POC Glucose Estimat Average Glucose 183 Hemoglobin A1c 8.0 H Calculated Osmolality Calcium Total Bilirubin AST ALT Alkaline Phosphatase Troponin T Baseline 35 H Troponin T 120 Minute Delta Troponin T Troponin T Hi Sens 6Hr Troponin T Hi Sens 6Hr Delta NT-Pro-B Natriuret Pep Total Protein Albumin Globulin Triglycerides Cholesterol LDL Cholesterol, Calc HDL Cholesterol LDL/HDL Ratio Cholesterol/HDL Ratio 08/12/21 08/12/21 18:00 18:00 WBC 7.9 RBC 5.85 H Hgb 17.8 H Hct 54.0 H MCV 92.3 MCH 30.4 MCHC 33.0 RDW 12.2 Plt Count 262 MPV 11.3 H Neut % (Auto) 45.9 Lymph % (Auto) 35.1 [place] % (Auto) 17.9 Eos % (Auto) 0.1 Baso % (Auto) 0.6 Neut # (Auto) 3.60 Lymph # (Auto) 2.8 [place] # (Auto) 1.4 H Eos # (Auto) 0.0 Baso # (Auto) 0.1 Nucleated RBC % (auto) 0 Nucleated RBCs # 0.0 PT INR APTT Sodium 133 L Potassium 3.9 Chloride 93 L Carbon Dioxide 21 L Anion Gap 22.9 H BUN 17 Creatinine 1.1 GFR Calculation Not Reportable Glucose 271 H POC Glucose Estimat Average Glucose Hemoglobin A1c Calculated Osmolality 287 Calcium 9.1 Total Bilirubin 0.6 AST 24 ALT 22 Alkaline Phosphatase 119 Troponin T Baseline Troponin T 120 Minute Delta Troponin T Troponin T Hi Sens 6Hr Troponin T Hi Sens 6Hr Delta NT-Pro-B Natriuret Pep 1739 H Total Protein 8.2 Albumin 4.6 Globulin 3.6 Triglycerides Cholesterol LDL Cholesterol, Calc HDL Cholesterol LDL/HDL Ratio Cholesterol/HDL Ratio Completed Studies During Hospitalization Category Date Time Status [employer] request for service Stat Exams 08/12/21 20:03 Completed XR chest 1V portable [id number] Stat Exams 08/12/21 17:59 Completed Laboratory Last Values WBC 5.3 10^3/uL (4.0-10.0) 08/13/21 02:53 RBC 4.95 10^6/uL (4.1-5.3) 08/13/21 02:53 Hgb 15.1 g/dL (11.7-16.6) 08/13/21 02:53 Hct 45.8 % (42.0-52.0) 08/13/21 02:53 MCV 92.5 fl (80-94) 08/13/21 02:53 MCH 30.5 pg (28.0-34.0) 08/13/21 02:53 MCHC 33.0 g/dL (30.0-36.0) 08/13/21 02:53 RDW 12.5 % (12.1-15.1) 08/13/21 02:53 Plt Count 183 10^3/cmm (130-400) D 08/13/21 02:53 MPV 11.3 fL (7.4-10.4) H 08/13/21 02:53 Neut % (Auto) 64.0 % 08/13/21 02:53 Lymph % (Auto) 17.3 % 08/13/21 02:53 [place] % (Auto) 18.1 % 08/13/21 02:53 Eos % (Auto) 0.0 % 08/13/21 02:53 Baso % (Auto) 0.2 % 08/13/21 02:53 Neut # (Auto) 3.36 10^3/uL (1.8-7.7) 08/13/21 02:53 Lymph # (Auto) 0.9 10^3/uL (0.8-4.8) 08/13/21 02:53 [place] # (Auto) 1.0 10^3/uL (0.2-0.9) H 08/13/21 02:53 Eos # (Auto) 0.0 10^3/uL (0.0-0.8) 08/13/21 02:53 Baso # (Auto) 0.0 10^3/uL (0.0-0.1) 08/13/21 02:53 Nucleated RBC % (auto) 0 % 08/13/21 02:53 Nucleated RBCs # 0.0 /100WBC 08/13/21 02:53 PT 13.70 SECONDS (12.1-14.9) 08/12/21 18:00 INR 1.02 (0.8-1.2) 08/12/21 18:00 APTT 32.8 SECONDS (23.9-36.7) 08/12/21 18:00 Sodium 136 mmol/L (136-145) 08/13/21 02:53 Potassium 4.3 mmol/L (3.5-5.1) 08/13/21 02:53 Chloride 99 mmol/L (98-107) 08/13/21 02:53 Carbon Dioxide 25 mmol/L (22-29) 08/13/21 02:53 Anion Gap 16.3 (5-19) 08/13/21 02:53 BUN 24 mg/dL (8-23) H 08/13/21 02:53 Creatinine 1.3 mg/dL (0.7-1.2) H 08/13/21 02:53 GFR Calculation Not Reportable 08/13/21 02:53 Glucose 235 mg/dL (65-115) H 08/13/21 02:53 POC Glucose 264 mg/dL (70-110) H 08/13/21 08:29 Estimat Average Glucose 183 08/12/21 18:00 Hemoglobin A1c 8.0 % (4.0-6.0) H 08/12/21 18:00 Calculated Osmolality 294 mOsm/kg (285-295) 08/13/21 02:53 Calcium 8.4 mg/dL (8.5-10.5) L 08/13/21 02:53 Total Bilirubin 0.6 mg/dL (0.15-1.2) 08/12/21 18:00 AST 24 U/L (0-40) 08/12/21 18:00 ALT 22 U/L (0-41) 08/12/21 18:00 Alkaline Phosphatase 119 IU/L (40-130) 08/12/21 18:00 Troponin T Baseline 35 ng/L (0-15) H 08/12/21 18:00 Troponin T 120 Minute 232.3 ng/L (0-15) H 08/12/21 19:56 Delta Troponin T 197.3 ABS# (0-10) H* 08/12/21 19:56 Troponin T Hi Sens 6Hr 972.2 ng/L (0-15) H 08/13/21 00:20 Troponin T Hi Sens 6Hr Delta 937.2 ng/L (0-12) H* 08/13/21 00:20 NT-Pro-B Natriuret Pep 1739 pg/mL (0-125) H 08/12/21 18:00 Total Protein 8.2 g/dL (6.6-8.7) 08/12/21 18:00 Albumin 4.6 g/dL (3.5-5.2) 08/12/21 18:00 Globulin 3.6 g/dL (1.3-4.6) 08/12/21 18:00 Triglycerides 76 mg/dL (0-150) 08/13/21 02:53 Cholesterol 156 mg/dL (0-200) 08/13/21 02:53 LDL Cholesterol, Calc 103 mg/dL (50-129) 08/13/21 02:53 HDL Cholesterol 38 mg/dL (60-100) L 08/13/21 02:53 LDL/HDL Ratio 2.71 RATIO (0.00-3.22) 08/13/21 02:53 Cholesterol/HDL Ratio 4.11 mg/dL (1.0-5.00) 08/13/21 02:53 Radiology Impressions Chest X-Ray 08/12/21 17:59 IMPRESSION: There are patchy bilateral pulmonary opacities consistent with pneumonia. Recent Clincial Data Last Vital Signs Temp 98.8 F 08/13/21 06:22 Pulse 84 08/13/21 11:05 Resp 22 H 08/13/21 07:30 BP 115/79 08/12/21 19:40 Pulse Ox 98 08/13/21 11:05 Vital Signs Temp Pulse Resp Pulse Ox 08/13/21 11:05 84 98 08/13/21 07:30 91 22 H 98 08/13/21 07:24 22 H 08/13/21 07:05 91 98 08/13/21 06:22 98.8 F 08/13/21 06:00 82 08/13/21 05:07 16 08/12/21 23:27 73 94 Intake & Output/Weight 08/11/21 08/12/21 08/13/21 08/14/21 06:59 06:59 06:59 06:59 Intake Total 15.85 / 15.85 Output Total 400 / 400 Balance -400 / -400 15.85 / 15.85 Weight 125.645 kg Vitals Last Vital Signs Temp 98.8 F 08/13/21 06:22 Pulse 84 08/13/21 11:05 Resp 22 H 08/13/21 07:30 BP 115/79 08/12/21 19:40 Pulse Ox 98 08/13/21 11:05 TS Medications Medications Acetaminophen (Acetaminophen 325 Mg Tablet) 650 mg PO Q6H PRN PRN Reason: MILD PAIN Hydrocodone Bitart/Acetaminophen (Hydrocodone-Acetaminophen 5-325 Mg Tablet) 1 tab PO Q8H PRN PRN Reason: MODERATE PAIN Last Admin: 08/13/21 11:09 Dose: 1 tab Documented by: Al Hydrox/Mg Hydrox/Simethicone (Xazo-Fcf-Fbwaimtkk-Danny 30 Ml Udc) 30 ml PO Q15M PRN PRN Reason: INDIGESTION Amlodipine Besylate (Amlodipine 10 Mg Tablet) 10 mg PO DAILY [facility] Aspirin (Aspirin 81 Mg Ec Tablet) 81 mg PO DAILY [facility] Last Admin: 08/13/21 08:34 Dose: 81 mg Documented by: Atorvastatin Calcium (Atorvastatin 40 Mg Tablet) 80 mg PO BEDTIME [facility] Atropine Sulfate (Atropine 1 Mg/Ml Sdv 1 Ml) 0.5 mg IVP PRN PRN PRN Reason: Symptomatic bradycardia Dextrose (Dextrose 50% Syringe 50 Ml) 25 ml IVP ONCE PRN; Protocol PRN Reason: hypoglycemia protocol Dextrose (Dextrose 50% Syringe 50 Ml) 50 ml IVP PRN PRN; Protocol PRN Reason: hypoglycemia protocol Furosemide (Furosemide 10 Mg/Ml Sdv 10ml) 60 mg IVP Q12H [facility] Last Admin: 08/12/21 21:58 Dose: Not Given Documented by: Gabapentin (Gabapentin 400 Mg Capsule) 400 mg PO TID [facility] Last Admin: 08/13/21 08:34 Dose: 400 mg Documented by: Glucagon (Glucagon 1 Mg/Ml Inj 1 Ml) 1 mg IM ONCE PRN; Protocol PRN Reason: Adult Acute Hypoglycemia Prot. Hydralazine HCl (Hydralazine 20 Mg/Ml Inj 1 Ml) 10 mg IVP Q4H PRN PRN Reason: systolic blood pressure >180 Last Admin: 08/13/21 06:32 Dose: 10 mg Documented by: Dextrose (D5w) 500 mls @ 100 mls/hr IV ONCE PRN; Protocol PRN Reason: Adult Acute Hypoglycemia Prot Nitroglycerin/Dextrose (Nitroglycerin Drip) 50 mg in 250 mls @ 0 mls/hr IV .Q0M [facility]; Protocol Last Titration: 08/13/21 09:34 Dose: 50 mcg/min, 15 mls/hr Documented by: Insulin Glargine (Insulin Glargine 100 Units/1 Ml) 40 unit SUBCUT BID [facility] Last Admin: 08/13/21 08:34 Dose: 40 unit Documented by: Insulin Human Lispro (Insulin Lispro 100 Unit/1 Ml) 0 unit SUBCUT WM&BEDTIME [facility]; Protocol Last Admin: 08/13/21 08:35 Dose: 10 unit Documented by: Magnesium Hydroxide (Magnesium Hydroxide 30 Ml Udc) 30 ml PO DAILY PRN PRN Reason: CONSTIPATION Metoprolol Tartrate (Metoprolol Tartrate 50 Mg Tablet) 50 mg PO BID@0900,2100 [facility] Last Admin: 08/13/21 09:58 Dose: 50 mg Documented by: Naloxone HCl (Naloxone 0.4 Mg/Ml Sdv) 0.1 mg IVP Q2M PRN PRN Reason: RESPIRATORY RATE < 8/MIN Nitroglycerin (Nitroglycerin 0.4 Mg Sublingual Tablet) 0.4 mg SUBLINGUAL Q5M PRN PRN Reason: CHEST PAIN Ondansetron HCl (Ondansetron 2 Mg/Ml Sdv 2 Ml) 4 mg IVP Q8H PRN PRN Reason: NAUSEA AND VOMITING Pantoprazole Sodium (Pantoprazole Dr 40 Mg Tablet) 40 mg PO DAILY [facility] Last Admin: 08/13/21 08:34 Dose: 40 mg Documented by: Temazepam (Temazepam 15 Mg Capsule) 15 mg PO BEDTIME PRN PRN Reason: INSOMNIA Vancomycin HCl (Vancomycin 1,000 Mg Oral [place] (Btl)) 125 mg PO QID [facility] Last Admin: 08/13/21 08:34 Dose: 1.25 ml Documented by: Discontinued Medications Albuterol/Ipratropium (Ipratropium-Albuterol 3 Ml Neb) 3 ml INHALATION ONCE ONE Stop: 08/12/21 20:16 Amlodipine Besylate (Amlodipine 5 Mg Tablet) 5 mg PO ONCE ONE Stop: 08/13/21 05:42 Last Admin: 08/13/21 06:09 Dose: 5 mg Documented by: Amlodipine Besylate (Amlodipine 5 Mg Tablet) 5 mg PO DAILY [facility] Amlodipine Besylate (Amlodipine 5 Mg Tablet) 5 mg PO ONCE ONE Stop: 08/13/21 09:01 Last Admin: 08/13/21 09:58 Dose: 5 mg Documented by: Aspirin (Aspirin 81 Mg Chew Tablet) 324 mg PO NOW ONE Stop: 08/12/21 19:27 Last Admin: 08/12/21 19:34 Dose: 324 mg Documented by: Lidocaine HCl 15 ml/ Al Hydrox /Mg Hydrox/Simethicone 30 ml/Sucralfate 1 gm 0 ml PO ONCE PRN PRN Reason: abdominal pain Stop: 08/13/21 02:26 Fentanyl (Fentanyl 50 Mcg/Ml Inj 2ml) Confirm Administered Dose 100 mcg .ROUTE .STK-MED ONE Stop: 08/12/21 19:48 Fentanyl (Fentanyl 50 Mcg/Ml Inj 2ml) 50 mcg IVP PRN PRN PRN Reason: Prior to sheath removal Last Admin: 08/13/21 07:24 Dose: 50 mcg Documented by: Furosemide (Furosemide 10 Mg/Ml Sdv 4ml) 40 mg IVP ONCE ONE Stop: 08/12/21 18:20 Last Admin: 08/12/21 18:28 Dose: 40 mg Documented by: Furosemide (Furosemide 10 Mg/Ml Sdv 2ml) 20 mg IVP ONCE ONE Stop: 08/12/21 21:30 Last Admin: 08/12/21 22:01 Dose: 20 mg Documented by: Furosemide (Furosemide 10 Mg/Ml Sdv 4ml) 40 mg IVP ONCE ONE Stop: 08/13/21 09:09 Last Admin: 08/13/21 09:58 Dose: 40 mg Documented by: Heparin Sodium (Porcine) (Heparin 5,000 Unit/Ml Inj 1 Ml) 4,000 unit IVP ONCE ONE Stop: 08/12/21 19:31 Last Admin: 08/12/21 19:45 Dose: Not Given Documented by: Heparin Sodium (Porcine) (Heparin 5,000 Unit/Ml Inj 1 Ml) Confirm Administered Dose 5,000 unit .ROUTE .STK-MED ONE Stop: 08/12/21 19:48 Heparin Sodium (Porcine) (Heparin 5,000 Unit/Ml Inj 1 Ml) Confirm Administered Dose 10,000 unit .ROUTE .STK-MED ONE Stop: 08/12/21 20:33 Hydralazine HCl (Hydralazine 20 Mg/Ml Inj 1 Ml) 20 mg IVP ONCE ONE Stop: 08/13/21 07:12 Last Admin: 08/13/21 07:23 Dose: 20 mg Documented by: Lidocaine HCl (Lidocaine 1%) Confirm Administered Dose 20 mls @ as directed .ROUTE .STK-MED ONE Stop: 08/12/21 19:48 Methylprednisolone Sodium Succinate (Methylprednisolone Sod Succ 125 Mg/2 Ml Inj) 125 mg IVP ONCE ONE Stop: 08/12/21 20:16 Last Admin: 08/12/21 20:47 Dose: Not Given Documented by: Metoprolol Succinate (Metoprolol Succinate Er (24 Hr) 25 Mg Tablet) 25 mg PO O NCE ONE Stop: 08/13/21 05:46 Last Admin: 08/13/21 06:09 Dose: 25 mg Documented by: Metoprolol Succinate (Metoprolol Succinate Er (24 Hr) 25 Mg Tablet) 25 mg PO BID@0900,2100 [facility] Metoprolol Tartrate (Metoprolol Tartrate 50 Mg Tablet) 50 mg PO BID@0900,2100 [facility] Midazolam HCl (Midazolam 1 Mg/Ml Inj 2 Ml) Confirm Administered Dose 2 mg .ROUTE .STK-MED ONE Stop: 08/12/21 19:48 Nitroglycerin (Nitroglycerin 0.4 Mg Sublingual Tablet) 0.4 mg SUBLINGUAL Q5M PRN PRN Reason: CHEST PAIN Last Admin: 08/13/21 07:10 Dose: 1 tab Documented by: Nitroglycerin (Nitroglycerin 5 Mg/Ml Sdv 10 Ml) Confirm Administered Dose 50 mg .ROUTE .STK-MED ONE Stop: 08/12/21 19:47 Perflutren Protein Type A Microsphe (Perflutren Protein-A Microsphr 0.22 Mg/Ml Sdv 3 Ml) 0 ml IV ONCE ONE Stop: 08/13/21 06:48 Last Admin: 08/13/21 09:23 Dose: 3 ml Documented by: Allergies No Known Allergies Allergy (Verified 08/12/21 17:54) Home Medications difluprednate 0.05 % eye drops 1 drop OPHTHALMIC (EYE) BID 06/23/19 [History Confirmed 08/12/21] furosemide 40 mg tablet 40 mg PO DAILY 06/23/19 [History Confirmed 08/12/21] insulin regular human 100 unit/mL injection solution (Humulin R Regular U-100 Insulin) See Rx Instructions .ROUTE .COMPLEX 06/23/19 [History Confirmed ] lisinopril 40 mg tablet 40 mg PO BID 06/23/19 [History Confirmed 08/12/21] metoprolol succinate 100 mg tablet,extended release 24 hr 100 mg PO BID 06/23/19 [History Confirmed 08/12/21] mupirocin 2 % topical ointment 1 applic TOPICAL BID #22 gm 07/27/19 [Rx Confirmed 08/12/21] aspirin 81 mg tablet,delayed release (Aspirin Low Dose) 81 mg PO DAILY 08/12/21 [History Confirmed 08/12/21] gabapentin 400 mg capsule 400 mg PO TID 08/12/21 [History Confirmed 08/12/21] insulin glargine 100 unit/mL (3 mL) subcutaneous pen (Lantus Solostar U-100 Insulin) See Rx Instructions .ROUTE .COMPLEX 08/12/21 [History Confirmed 08/12/21] Discharge Plan Discharge Patient Disposition: Xfer Other Condition: Stable Prescriptions: No Action lisinopril 40 mg tablet 40 mg PO BID 0RF Humulin R Regular U-100 Insuln 100 unit/mL solution See Rx Instructions .ROUTE .COMPLEX 0RF Rx Instructions: per sliding scale furosemide 40 mg tablet 40 mg PO DAILY 0RF metoprolol succinate 100 mg tablet extended release 24 hr 100 mg PO BID 0RF difluprednate 0.05 % drops 1 drop ophthalmic (eye) BID 0RF mupirocin 2 % ointment 1 applic TOPICAL BID Qty: 22 1RF gabapentin 400 mg capsule 400 mg PO TID 0RF Aspirin Low Dose 81 mg tablet,delayed release (DR/EC) 81 mg PO DAILY 0RF Lantus Solostar U-100 Insulin 100 unit/mL (3 mL) insulin pen See Rx Instructions .ROUTE .COMPLEX 0RF Rx Instructions: 40 unit subcutaneously in the morning / 50 units subcutaneously in the evening Referrals: Kam Howe [Primary Care Provider] - Discharge Diet: Cardiac and Diabetic Discharge Activity: Resume usual activity and Increase activity as tolerated Patient Instructions: Opioid Safety Transfer Attestations Time Spent in Transfer Care: greater than 30 min Status at Transfer: Cognitive status at transfer: cognitively intact ; Behavioral status at transfer: cooperative ; Functional status at transfer: other ; Overall status at transfer: patient is not back to baseline Quality Metrics Clinical Quality Measures [ Acute Myocardial Infaction { Clinical Trial Participant: No; Contraindication to aspirin: None; Aspirin prescribed; Contraindication to statin: None; Statin prescribed; Contraindication to PCI: Procedure contraindicated (needs cabg); Contraindication to Fibrinolytics: None; fibrinolytics given}] Coding Level of Care Code Acute 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
[2021-08-13 11:42] LABS: SARS Covid-2 Antigen Positive (Negative)
[2021-08-13 11:50] LABS: Glucose Point of Care 262 mg/dL (70-110)
--- NOTE | 2021-08-13 12:09 | PC.RESP ---
RT Shift Note Frequent safety and respiratory rounds continue. Orders completed as indicated. Patient monitored pre and post treatments throughout shift. Patient [Did.] tolerate treatments appropriately. Condition [Improved.]. Patient and/or sales representative printing supplies educated on respiratory treatment and medications. Patient and/or sales representative printing supplies [verbalized understanding]. Will continue to monitor patient progress.
[2021-08-13 13:15] LABS: Bilirubin Urine Neg (Negative); Blood Urine Neg (Negative); Glucose Urine UA 4+ (Normal); Ketones Urine 1+ (Negative); Leukocyte Esterase Urine Negative (Negative); Nitrate Urine Negative (Negative); Protein Urine 3+ (Negative); Urine Appearance Clear (CLEAR); Urine Color Yellow (Yellow); Urobilinogen Urine Norm (Negative); pH Urine 5 (5-7)
[2021-08-13 13:16] LABS: Add Urine Culture? No; Add Urine Microscopic? YES; Bacteria Urine 2+ /hpf; Mucus Urine TRACE /hpf; Squamous Epithelial Cell Urine RARE /hpf (0-5); WBC Urine RARE /hpf (0-5)
[2021-08-13 13:17] LABS: Potassium, Radom Urine 52 mmol/L; Urine Creatinine 81 mg/dL (39-259); Urine Random Chloride 58 mmol/L; Urine Random Sodium 50 mmol/L
[2021-08-13] MEDS: remdesivir 200 MG in sodium chloride 0.9% (100 ml) 60 ML 100 MG IV (13:24)
[2021-08-13] MEDS: dexamethasone 10 mg/mL INJ 6 MG IVP (13:24)
[2021-08-13 15:05] LABS: Eosinophil Urine No Eosinophils Seen; Urine Eosinophil Count 0 (0-0)
[2021-08-13 16:00] LABS: C Reactive Protein 52.4 mg/L (0.0-4.9)
[2021-08-13 17:47] LABS: Glucose Point of Care 191 mg/dL (70-110)
[2021-08-13 18:12] LABS: Anion Gap 18.5 (5-19); Blood Urea Nitrogen 31 mg/dL (8-23); Calcium 8.2 mg/dL (8.5-10.5); Carbon Dioxide 21 mmol/L (22-29); Chloride 97 mmol/L (98-107); Glucose 220 mg/dL (65-115); Osmolality Calculated 287 mOsm/kg (285-295); Potassium 4.5 mmol/L (3.5-5.1); Sodium 132 mmol/L (136-145)
[2021-08-13] MEDS: budesonide 0.5 mg/2 mL Neb INHALATION (20:21)
[2021-08-13] MEDS: ipratropium-albuterol 3 mL Neb INHALATION (20:21)
[2021-08-13] MEDS: atorvastatin 40 mg Tablet 80 MG PO (20:55)
[2021-08-13] MEDS: insulin glargine 100 units/1 mL 50 UNIT SUBCUT (20:56)
[2021-08-13 20:58] LABS: Glucose Point of Care 255 mg/dL (70-110)
--- NOTE | 2021-08-13 21:19 | USCV_ITS ---
Berry Diaz Age: 71 Gender: M : 1950 Exam Date: 08/13/2021 06:20 Ordering Phys: Vadim Helton M.D ([email or web address]) Technologist: Sirisha Chew Exam Location: [place] Indication: SOB HTN BP: 232 / 136 HR: 88 Rhythm: Sinus Technical Quality: Technically difficult study MEASUREMENTS (Male / Female) Normal Values 2D ECHO LV Diastolic Diameter PLAX 4.3 cm 4.2 - 5.9 / 3.9 - 5.3 cm LV Systolic Diameter PLAX 3.3 cm LV Chamber Size 3.1 cm IVS Diastolic Thickness 1.1 cm 0.6 - 1.0 / 0.6 - 0.9 cm IVS Systolic Thickness 1.6 cm LVPW Diastolic Thickness 1.5 cm 0.6 - 1.0 / 0.6 - 0.9 cm LVPW Systolic Thickness 1.9 cm RV Chamber Size 3.3 cm LVOT Diameter 2.1 cm LV Ejection Fraction 2D Teich 49.4 % LV Ejection Fraction MOD 2C 31.4 % LV Ejection Fraction 2C AL 32.0 % LA Diameter 4.9 cm LA Width 4.4 cm LA Height 6.1 cm RA Width 4.7 cm RA Height 5.3 cm Aorta at Sinotubular Diameter 3.4 cm M-MODE Aortic Annulus Diameter 3.4 cm LA Ao Ratio MM 1.6 MV E Point Septal Separation 0.6 cm DOPPLER AV Peak Velocity 75.0 cm/s LVOT Peak Velocity 45.0 cm/s AV Area Cont Eq vti 1.9 cm squared AV Area Cont Eq pk 2.0 cm squared MV Area PHT 3.9 cm squared Mitral E to A Ratio 1.2 MV E' Velocity 67.0 cm/s Mitral E to MV E' Ratio 23.1 Mitral E to LV E' Lateral Ratio 24.0 Mitral E to LV E' Septal Ratio 22.7 TV Peak E Velocity 84.0 cm/s PV Peak Velocity 69.0 cm/s RV Acceleration Time 0.2 s RV Ejection Time 0.3 s RV AcT/ET 0.5 FINDINGS Left Ventricle Technically limited quality echocardiogram because of poor ultrasonic windows. Grossly LV systolic function is mildly reduced with EF of 40-45%. Regional wall motion abnormalities can not be accuately assessed because of poor ultrasonic windows. Right Ventricle Grossly normal in size and function Right Atrium Normal in size Left Atrium Normal in size Mitral Valve Moderate mitral annular calcification. Aortic Valve Aortic valve is thickened. No significant stenosis Tricuspid Valve Not well visualized Pulmonic Valve Not well visualized Pericardium Grossly normal Aorta Not well visualized CONCLUSIONS Technically limited quality echocardiogram because of poor ultrasonic windows. LV systolic function is grossly normal with mildly reduced EF of 40 to 45%. Regional wall motion abnormalities cannot be accurately assessed because of limited visualization. Valves are not well-visualized however no major gross abnormalities. No comparison studies are available Vadim Helton MD (Electronically Signed) Final Date: 13 August 2021 12:15 S
--- NOTE | 2021-08-13 21:39 | PC.NURSE ---
Upon the time to check patient's blood sugar and give nighttime meds, the patient became defensive. Patient informed that his blood sugar was 255 and educated he would get his long-acting insulin as well as 10units per sliding scale. Patient became defensive in the fact that his sliding scale when he is at home says he usually takes 18units of insulin. Patient educated on our hospital protocol of sliding scale insulin and that it may be different than his home sliding scale. Patient also educated that the steroids he is on to help with his COVID can contribute to his higher blood sugars. Patient also stated that he did not eat a lot today due to the fact he knew his blood sugars were high. Patient also educated the importance of eating to help with healing and getting better, and we can adjust the amount of insulin he is to receive either per protocol or with contacting the doctor. Patient made a comment that he believes nursing staff and doctors are inadequate and do not know the disease process of diabetes and if something happens regarding his diabetes he states, I will alin their asses .
[2021-08-14] VITALS (23 sets, daily range): BP systolic 126–199; BP diastolic 52–130; PULSE 62–91; RESP 12–20; TEMP 36.8; O2SAT 92–99
--- NOTE | 2021-08-14 03:02 | PC.NURSE ---
[facility] called at 0301 to receive an update on the patient to update their charts. Still no bed available at this time, but they will call back whenever a bed is ready.
[2021-08-14] MEDS: ipratropium-albuterol 3 mL Neb INHALATION (03:11)
[2021-08-14 03:42] LABS: Basophils % 0.2 %; Hematocrit 43.3 % (42.0-52.0); Hemoglobin 14.6 g/dL (11.7-16.6); Lymphocytes # 0.9 10^3/uL (0.8-4.8); Lymphocytes % 19.5 %; Mean Corpuscular HGB Conc 33.7 g/dL (30.0-36.0); Mean Corpuscular Hemoglobin 30.7 pg (28.0-34.0); Mean Platelet Volume 11.3 fL (7.4-10.4); Monocytes # 0.9 10^3/uL (0.2-0.9); Monocytes % 17.6 %; Neutrophils % 62.3 %; Nucleated Red Blood Cells % 0 %; Platelet Count 162 10^3/cmm (130-400); Red Blood Count 4.76 10^6/uL (4.1-5.3); Red Cell Distribution Width 12.3 % (12.1-15.1); White Blood Count 4.8 10^3/uL (4.0-10.0)
[2021-08-14 04:07] LABS: Alanine Aminotransferase 20 U/L (0-41); Albumin Level 3.2 g/dL (3.5-5.2); Alkaline Phosphatase 74 IU/L (40-130); Anion Gap 16.1 (5-19); Aspartate Amino Transferase 50 U/L (0-40); Blood Urea Nitrogen 36 mg/dL (8-23); C Reactive Protein 115.4 mg/L (0.0-4.9); Calcium 8.1 mg/dL (8.5-10.5); Carbon Dioxide 23 mmol/L (22-29); Chloride 99 mmol/L (98-107); Globulin 3.1 g/dL (1.3-4.6); Glucose 181 mg/dL (65-115); Osmolality Calculated 291 mOsm/kg (285-295); Potassium 4.1 mmol/L (3.5-5.1); Sodium 134 mmol/L (136-145); Total Bilirubin 0.4 mg/dL (0.15-1.2); Total Protein 6.3 g/dL (6.6-8.7)
[2021-08-14] MEDS: hyDRALAzine 20 mg/mL INJ 1 mL 10 MG IVP (05:00)
--- NOTE | 2021-08-14 05:42 | PC.NURSE ---
Received a call around 0300 that [facility] had a bed ready for the patient, this was given by the transfer center by Denia Caban. The patient is going to [address] ICU and bed 8208. Unit phone number at [facility] is [phone]. [facility] unable to take the patient but [facility] was able to transport him. Called report to Levar Torres RN at 0430 at [facility]. [facility] left the unit at 0523. Called Yolie and told CHERRIE Cristobal that the patient has left our facility and the flight will be around an hour. Called Tere, to notify her of the patient receiving a bed, she will notify . [facility] unable to take patient belongings. Family was notified of this and said they would be here within the next 1-2 hours to pick them up before heading to [facility]. Updated [employer] supervisor [employer] warehouse of everything at 0533. All paperwork signed and given to flight crew with [facility] to take to [facility].
== END 2021-08-14 09:01 | disposition short-term general hospital (02) | DRG 280 ==
LOC: ER 19:30 → CCL 20:41 → ICU 20:59
PROVIDERS: Student in an Organized Health Care Education/Training Program; Admitting Provider Student in an Organized Health Care Education/Training Program; Emergency Provider Emergency Medicine; PCP Family Medicine; Visit Provider Internal Medicine
PROC: B2111ZZ Fluoroscopy of Multiple Coronary Arteries using Low Osmolar Contrast (ICD-10-PCS; principal; 2021-08-12 20:00)
DX: I21.3 ST elevation (STEMI) myocardial infarction of unspecified site (principal); J96.90 Respiratory failure, unspecified, unspecified whether with hypoxia or hypercapnia; U07.1 COVID-19; I13.0 Hypertensive heart and chronic kidney disease with heart failure and stage 1 through stage 4 chronic kidney disease, or unspecified chronic kidney disease; N17.9 Acute kidney failure, unspecified; I25.10 Atherosclerotic heart disease of native coronary artery without angina pectoris; E13.22 Other specified diabetes mellitus with diabetic chronic kidney disease; N18.1 Chronic kidney disease, stage 1; I50.9 Heart failure, unspecified; E13.40 Other specified diabetes mellitus with diabetic neuropathy, unspecified; E13.51 Other specified diabetes mellitus with diabetic peripheral angiopathy without gangrene; Z89.411 Acquired absence of right great toe; Z89.422 Acquired absence of other left toe(s); Z87.891 Personal history of nicotine dependence; I95.9 Hypotension, unspecified; Z79.4 Long term (current) use of insulin; Z79.82 Long term (current) use of aspirin
CPT/HCPCS: 36415; 36416; 71045; 80048; 80053; 80061; 81001; 82436; 82570; 82962; 83036; 83880; 84133; 84300; 84484; 85025; 85610; 85730; 85999; 86140; 87426; 87493; 87641; 93005; 93452; 94640; 94660; 94664; 96372; 96374; 96375; 99285; C1725; C1769; C1887; C1894; C8929; J0360; J1100; J1644; J1815 ×2; J1940; J2250; J3010; J3370; J3490; J7626; Q9956; Q9967

== ENCOUNTER 2021-08-27 11:06 | Emergency (ER) | payer OTHER, MEDICARE, SELFPAY ==
[2021-08-27 11:27] VITALS: BP 82/39; PULSE 76; RESP 22; TEMP 36.2; O2SAT 93; BMI 34.9
--- NOTE | 2021-08-27 11:33 | CTR_ITS ---
PROCEDURE INFORMATION: Exam: CT Head Without Contrast Exam date and time: 08/27/2021 11:33 AM Age: 71 years old Clinical indication: Weakness, extremity; Bilateral TECHNIQUE: Imaging protocol: Computed tomography of the head without contrast. Radiation optimization: All CT scans at this facility use at least one of these dose optimization techniques: automated exposure control; mA and/or kV adjustment per patient size (includes targeted exams where dose is matched to clinical indication); or iterative reconstruction. COMPARISON: No relevant prior studies available. 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 There are chronic lacunar infarcts in the right cerebellar hemisphere.Periventricular and subcortical white matter low densities are present which at this age likely represent microvascular ischemic change. Benign globus pallidus calcifications are present. No evidence for large acute ischemic infarction. Please note acute ischemia can be occult by head CT. Cerebral ventricles: No ventriculomegaly. Paranasal sinuses: There is mucosal thickening in the left sphenoid sinus. Mastoid air cells: Visualized mastoid air cells are well aerated. Vasculature: Calcified plaque is present within the intracranial vasculature. Bones/joints: Unremarkable. No acute fracture. Soft tissues: Unremarkable. CT/CT head wo con* [id number] IMPRESSION: There are senescent changes of the brain as described above. No evidence for large acute ischemic infarction or acute intracranial injury.
--- NOTE | 2021-08-27 11:33 | XRR_ITS ---
PROCEDURE INFORMATION: Exam: XR Chest Exam date and time: 08/27/2021 11:33 AM Age: 71 years old Clinical indication: Other: Weakness TECHNIQUE: Imaging protocol: XR of the chest. Views: 1 view. COMPARISON: CR (CHEST, ) 08/12/2021 6:07 PM FINDINGS: Lungs: There are subtle patchy opacities at the left lung base, improved when compared to the prior study. Pleural spaces: Unremarkable. No pleural effusion. No pneumothorax. Heart/Mediastinum: Unremarkable. No cardiomegaly. Bones/joints: Unremarkable. XR/XR chest 1V portable [id number] IMPRESSION: Subtle patchy opacities at the left lung base have improved when compared to the prior study. Differential includes resolving pneumonia and/or scar tissue.
--- NOTE | 2021-08-27 11:34 | ECG_ITS ---
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 Measurements Intervals [place] Rate: 71 P: 59 MD: 217 QRS: 89 QRSD: 139 T: 0 QT: 404 QTc: 440 Interpretive Statements SINUS RHYTHM WITH FIRST DEGREE AV BLOCK INTRAVENTRICULAR CONDUCTION DELAY [130+ ms QRS DURATION] INFERIOR MYOCARDIAL INFARCTION , PROBABLY OLD [40+ ms Q WAVE AND/OR ST/T ABNORMALITY IN II/aVF] ANTEROLATERAL MYOCARDIAL INFARCTION , PROBABLY OLD [40+ ms Q WAVE IN I/aVL/V3-V6] Compared to ECG 08/13/2021 07:14:54 First degree AV block now present Right-axis deviation no longer present Myocardial infarct finding still present Electronically Signed On 08-27-2021 12:01:33 DIRECTOR OF EMERGENCY NURSING by Leena Prakash M.D. [email or web address] [id number]
[2021-08-27] MEDS: sodium chloride 0.9% 1,000 ML 999 ML IV (11:40)
--- NOTE | 2021-08-27 11:40 | PC.NURSE ---
PT PLACED ON CONTINUOUS SPO2, NIBP, AND CM.
--- NOTE | 2021-08-27 11:43 | W.ED.GENADLT ---
HPI - General Adult General: Chief complaint: General Medical Stated complaint: low B/P Time Seen by Provider: 08/27/21 11:29 Source: patient Mode of arrival: ambulatory Limitations: no limitations History of Present Illness: 71-year-old male states that he was seen at [facility] last week had multiple stents placed started on a bunch new blood pressure medication. He states that over the last week he has been having episodic low blood pressure and believes he is taking too many blood pressure meds. He states he had some slurred speech when he gets hypotensive and has generalized weakness he states this morning he took his medication again his blood pressure dropped. He denies any headache denies any chest pain denies any worsening improving factors. Associated symptoms: Reports malaise; Deny chest pain, dyspnea, nausea, rash or vomiting Review of Systems Const: Reports: malaise Eyes: Reports: blurry vision ENMT: Denies: throat pain or dental pain Card: Denies: chest pain Resp: Denies: dyspnea GI: Denies: abdominal pain, nausea, vomiting or diarrhea : Denies: dysuria Musc: Denies: neck pain or back pain Skin/Breast: Denies: rash Neuro: Reports: weakness in extremities Psych: Denies: depression Pardeep/Lymph: Denies: easy bruising All/Imm: Denies: urticaria PFSH ED PFSH: Medical History Chronic kidney disease, stage 1 Diabetes 1.5, managed as type 2 Essential (primary) hypertension History of amputation of great toe Osteomyelitis, unspecified Peripheral vascular disease, unspecified Venous insufficiency Surgical History History of amputation of lesser toe of left foot Family History Father Cancer Stroke Mother Diabetes Denies family history of CAD (coronary artery disease) Clotting disorder Dementia Hyperlipidemia Psychiatric illness Chronic kidney disease (CKD) Suicide Anesthesia complication Bleeding disorder Family history of premature coronary artery disease Lung disease Hypertension Social History Smoking and tobacco status: former smoker Quit status (tobacco): has quit using tobacco Second hand smoke exposure: No Smoking risk assessment/counseling performed?: No Alcohol intake: never Desire information about alcohol rehabilitation?: No Counseling given: No Last alcohol use date: 07/24/18 Desire information about substance/drug rehabilitation?: No Counseling given: No Adopted: No Caregiver/support person: Yes Lives independently: Yes Household members: spouse Housing: House Marital status: Number of children: 6 Number of grandchildren: 11 Highest education level completed: Bachelor's Degree service: Yes Current occupational status: retired Pets and animals: Yes History of recent travel: No Leisure activites: fishing Current gender identity: Male Cindy/Anabaptism: Yarsani Special cindy needs: No Agree to transfusion: Yes Financial difficulty paying for basics: Not Very Hard Physical Exam Const: COMMON NORMALS: patient oriented x3 GENERAL APPEARANCE: lethargic and ill appearing ORIENTATION/CONSCIOUSNESS: Yes lethargic HENMT: COMMON NORMALS: normocephalic and atraumatic HEAD & SCALP: normocephalic and atraumatic Eye: COMMON NORMALS: Equal, round and reactive pupils present and EOMs intact bilaterally PUPIL: Yes Equal, round and reactive pupils present Neck/C-Spine: COMMON NORMALS: full ROM and supple Chest: COMMONS NORMALS: normal inspection of the chest and normal palpation of entire chest wall Resp: COMMON NORMALS: normal respiratory effort, No retractions, No use of accessory muscles and clear to auscultation bilaterally AUSCULTATION: clear to auscultation bilaterally Cardio: COMMON NORMALS: regular rate, regular rhythm and No murmurs present (Cardio) RATE: regular rate RHYTHM: regular rhythm GI: COMMON NORMALS: Normal to inspection, nondistended, normoactive bowel sounds present, Soft to palpation, non-tender and no masses PALPATION: Yes Soft to palpation Extremity: COMMON NORMALS: normal to inspection and full ROM Neuro: COMMON NORMALS: patient oriented x3, moves all extremities and no focal motor deficits SENSORIUM/ORIENTATION: Yes lethargic Psych: COMMON NORMALS: mental status grossly normal, Normal thought process present and cooperative THOUGHT PROCESS: Normal thought process present Skin: COMMON NORMALS: no rashes or lesions noted and no wounds GENERAL SKIN EXAM: no rashes or lesions noted Course Vital Signs: Vital signs: Vital Signs Temperature 97.1 F L 08/27/21 11:27 Pulse Rate 75 08/27/21 13:25 Respiratory Rate 19 H 08/27/21 13:25 Blood Pressure 139/63 08/27/21 13:25 Pulse Oximetry 93 08/27/21 13:25 MDM - General Adult Medical Decision Making Berry presents with periods of hypotension after starting new blood pressure medicines. He had some slurred speech with a hypotension head CT and blood work are all normal I strongly recommended admission at least for observation as we could adjust his medicines. He states he feels much improved here since his blood pressure did improved and he refuses admission I will decrease his carvedilol from 50-25 I informed him he needs it check his blood pressure also before taking his medication he is to follow-up with a receiving distribution station operator in 3 to 5 days and return if worsening or if he changes his mind about admission he understands and agrees to plan. Lab Data : 08/27/21 11:41 08/27/21 11:41 Radiology Impressions Chest X-Ray 08/27/21 11:33 IMPRESSION: Subtle patchy opacities at the left lung base have improved when compared to the prior study. Differential includes resolving pneumonia and/or scar tissue. Head CT 08/27/21 11:33 IMPRESSION: There are senescent changes of the brain as described above. No evidence for large acute ischemic infarction or acute intracranial injury. Laboratory Results WBC 10.0 10^3/uL (4.0-10.0) 08/27/21 11:41 RBC 3.69 10^6/uL (4.1-5.3) L 08/27/21 11:41 Hgb 11.4 g/dL (11.7-16.6) L 08/27/21 11:41 Hct 34.3 % (42.0-52.0) L 08/27/21 11:41 MCV 93.0 fl (80-94) 08/27/21 11:41 MCH 30.9 pg (28.0-34.0) 08/27/21 11:41 MCHC 33.2 g/dL (30.0-36.0) 08/27/21 11:41 RDW 12.7 % (12.1-15.1) 08/27/21 11:41 Plt Count 345 10^3/cmm (130-400) 08/27/21 11:41 MPV 10.6 fL (7.4-10.4) H 08/27/21 11:41 Neut % (Auto) 74.2 % 08/27/21 11:41 Lymph % (Auto) 10.7 % 08/27/21 11:41 [place] % (Auto) 12.0 % 08/27/21 11:41 Eos % (Auto) 1.5 % 08/27/21 11:41 Baso % (Auto) 0.5 % 08/27/21 11:41 Neut # (Auto) 7.38 10^3/uL (1.8-7.7) 08/27/21 11:41 Lymph # (Auto) 1.1 10^3/uL (0.8-4.8) 08/27/21 11:41 [place]oval # (Auto) 1.2 10^3/uL (0.2-0.9) H 08/27/21 11:41 Eos # (Auto) 0.2 10^3/uL (0.0-0.8) 08/27/21 11:41 Baso # (Auto) 0.1 10^3/uL (0.0-0.1) 08/27/21 11:41 Nucleated RBC % (auto) 0 % 08/27/21 11:41 Nucleated RBCs # 0.0 /100WBC 08/27/21 11:41 PT 13.60 SECONDS (12.1-14.9) 08/27/21 11:41 INR 1.01 (0.8-1.2) 08/27/21 11:41 Sodium 134 mmol/L (136-145) L 08/27/21 11:41 Potassium 4.5 mmol/L (3.5-5.1) 08/27/21 11:41 Chloride 98 mmol/L (98-107) 08/27/21 11:41 Carbon Dioxide 24 mmol/L (22-29) 08/27/21 11:41 Anion Gap 16.5 (5-19) 08/27/21 11:41 BUN 22 mg/dL (8-23) 08/27/21 11:41 Creatinine 1.3 mg/dL (0.7-1.2) H 08/27/21 11:41 GFR Calculation Not Reportable 08/27/21 11:41 Glucose 165 mg/dL (65-115) H 08/27/21 11:41 Calculated Osmolality 285 mOsm/kg (285-295) 08/27/21 11:41 Lactate 1.6 mmol/L (0.5-2.2) 08/27/21 11:41 Calcium 7.9 mg/dL (8.5-10.5) L 08/27/21 11:41 Total Bilirubin 0.6 mg/dL (0.15-1.2) 08/27/21 11:41 AST 19 U/L (0-40) 08/27/21 11:41 ALT 19 U/L (0-41) 08/27/21 11:41 Alkaline Phosphatase 94 IU/L (40-130) 08/27/21 11:41 Total Protein 6.2 g/dL (6.6-8.7) L 08/27/21 11:41 Albumin 3.2 g/dL (3.5-5.2) L 08/27/21 11:41 Globulin 3.0 g/dL (1.3-4.6) 08/27/21 11:41 Urine Color Yellow (Yellow) 08/27/21 12:30 Urine Appearance Clear (CLEAR) 08/27/21 12:30 Urine pH 5 (5-7) 08/27/21 12:30 Ur Specific [place] 1.010 (1.005-1.030) 08/27/21 12:30 Urine Protein 1+ (Negative) H 08/27/21 12:30 Urine Glucose (UA) 4+ (Normal) H 08/27/21 12:30 Urine Ketones Negative (Negative) 08/27/21 12:30 Urine Blood Neg (Negative) 08/27/21 12:30 Urine Nitrate Negative (Negative) 08/27/21 12:30 Urine Bilirubin Neg (Negative) 08/27/21 12:30 Urine Urobilinogen 1 mg/dL (Negative) H 08/27/21 12:30 Ur Leukocyte Esterase Negative (Negative) 08/27/21 12:30 Urine RBC None /hpf (0-2) 08/27/21 12:30 Urine WBC None /hpf (0-5) 08/27/21 12:30 Ur Squamous Epith Cells 5-10 /hpf (0-5) H 08/27/21 12:30 Amorphous Sediment Not Reportable 08/27/21 12:30 Urine Bacteria Trace /hpf (NONE) 08/27/21 12:30 EKG Data EKG 1: I personally reviewed and interpreted this EKG as follows: EKG interpretation date: 08/27/21 EKG interpretation time: 11:42 Interpretation: nsr hr [address] or t wave abnormalities qrs 139 qtc 426 Computer generated interpretation: Chest X-Ray 08/27/21 11:33 IMPRESSION: Subtle patchy opacities at the left lung base have improved when compared to the prior study. Differential includes resolving pneumonia and/or scar tissue. Head CT 08/27/21 11:33 IMPRESSION: There are senescent changes of the brain as described above. No evidence for large acute ischemic infarction or acute intracranial injury. Discharge Plan Discharge Patient Disposition: Home Clinical Impression: Acute hypotension Condition: Stable Prescriptions: Changed carvedilol 25 mg Tablet 25 mg PO BID Qty: 60 0RF Rx Instructions: must administer with a meal/food No Action lisinopril 40 mg tablet 40 mg PO DAILY 0RF Humulin R Regular U-100 Insuln 100 unit/mL solution See Rx Instructions .ROUTE .COMPLEX 0RF Rx Instructions: per sliding scale furosemide 40 mg tablet 40 mg PO DAILY 0RF difluprednate 0.05 % drops 1 drop ophthalmic (eye) BID 0RF mupirocin 2 % ointment 1 applic TOPICAL BID Qty: 22 1RF aspirin [Aspirin Low Dose] 81 mg tablet,delayed release (DR/EC) 81 mg PO DAILY 0RF Lantus Solostar U-100 Insulin 100 unit/mL (3 mL) insulin pen 30 unit SUBCUT BID 0RF gabapentin 800 mg Tablet See Rx Instructions .ROUTE .COMPLEX 0RF Rx Instructions: 800 mg orally in the morning / 1600 mg orally in the evening atorvastatin 80 mg Tablet 80 mg PO DAILY 0RF isosorbide mononitrate 30 mg Tablet Extended Release 24 Hr 30 mg PO DAILY 0RF nifedipine 60 mg Tablet Extended Release 24hr 60 mg PO DAILY 0RF Brilinta 90 mg Tablet 90 mg PO BID 0RF Farxiga 10 mg Tablet 10 mg PO DAILY 0RF Discharge Orders: Discharge ED (Routine); Ordered 08/27/21 Ordered By: Macarena Singh Referrals: Vadim Helton M.D [Physician] - 1-3 days Kam Howe [Primary Care Provider] - Discharge Diet: Advance as tolerated Discharge Activity: Resume usual activity Patient Instructions: Hypotension (ED) Coding Level of Care Code ED Air Traffic Coordinator for Chg Fwd Exam Comprehensive
[2021-08-27 11:47] VITALS: BP 85/52; PULSE 79; RESP 22; O2SAT 90
[2021-08-27 12:02] LABS: Basophils # 0.1 10^3/uL (0.0-0.1); Basophils % 0.5 %; Eosinophils # 0.2 10^3/uL (0.0-0.8); Eosinophils % 1.5 %; Hematocrit 34.3 % (42.0-52.0); Hemoglobin 11.4 g/dL (11.7-16.6); Lymphocytes # 1.1 10^3/uL (0.8-4.8); Lymphocytes % 10.7 %; Mean Corpuscular HGB Conc 33.2 g/dL (30.0-36.0); Mean Corpuscular Hemoglobin 30.9 pg (28.0-34.0); Mean Platelet Volume 10.6 fL (7.4-10.4); Monocytes # 1.2 10^3/uL (0.2-0.9); Neutrophils # 7.38 10^3/uL (1.8-7.7); Neutrophils % 74.2 %; Nucleated Red Blood Cells % 0 %; Platelet Count 345 10^3/cmm (130-400); Red Blood Count 3.69 10^6/uL (4.1-5.3); Red Cell Distribution Width 12.7 % (12.1-15.1)
[2021-08-27 12:11] LABS: INR 1.01 (0.8-1.2)
[2021-08-27 12:18] LABS: Alanine Aminotransferase 19 U/L (0-41); Albumin Level 3.2 g/dL (3.5-5.2); Alkaline Phosphatase 94 IU/L (40-130); Anion Gap 16.5 (5-19); Aspartate Amino Transferase 19 U/L (0-40); Blood Urea Nitrogen 22 mg/dL (8-23); Calcium 7.9 mg/dL (8.5-10.5); Carbon Dioxide 24 mmol/L (22-29); Chloride 98 mmol/L (98-107); Glucose 165 mg/dL (65-115); Osmolality Calculated 285 mOsm/kg (285-295); Potassium 4.5 mmol/L (3.5-5.1); Sodium 134 mmol/L (136-145); Total Bilirubin 0.6 mg/dL (0.15-1.2); Total Protein 6.2 g/dL (6.6-8.7)
[2021-08-27 12:19] LABS: Lactate (Lactic Acid level) 1.6 mmol/L (0.5-2.2)
--- NOTE | 2021-08-27 12:32 | PC.NURSE ---
urine to lab
[2021-08-27 12:59] LABS: Add Urine Microscopic? YES; Bilirubin Urine Neg (Negative); Blood Urine Neg (Negative); Glucose Urine UA 4+ (Normal); Ketones Urine Negative (Negative); Leukocyte Esterase Urine Negative (Negative); Nitrate Urine Negative (Negative); Protein Urine 1+ (Negative); Urine Appearance Clear (CLEAR); Urine Color Yellow (Yellow); Urobilinogen Urine 1 mg/dL (Negative); pH Urine 5 (5-7)
[2021-08-27 13:04] LABS: Bacteria Urine TRACE /hpf
[2021-08-27 13:05] LABS: Add Urine Culture? No
[2021-08-27 13:25] VITALS: BP 139/63; PULSE 75; RESP 19; O2SAT 93
--- NOTE | 2021-08-29 05:56 | DCPLANNER ---
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 Original Note: manager pulmonary had message to schedule a follow up appointment for patient with [facility]. manager pulmonary emailed patients information to Francine Damon and Francine Brandon at [facility]. Patients information will be printed and reviewed. Clinic will call patient with appointment information.
== END 2021-08-27 13:31 | disposition home or self-care (01) ==
PROVIDERS: Emergency Provider Emergency Medicine; PCP Family Medicine
DX: I95.9 Hypotension, unspecified (principal); Z79.4 Long term (current) use of insulin; Z79.82 Long term (current) use of aspirin; I12.9 Hypertensive chronic kidney disease with stage 1 through stage 4 chronic kidney disease, or unspecified chronic kidney disease; E13.22 Other specified diabetes mellitus with diabetic chronic kidney disease; N18.1 Chronic kidney disease, stage 1; Z87.891 Personal history of nicotine dependence
CPT/HCPCS: 36415; 70450; 71045; 80053; 81001; 83605; 85025; 85610; 93005; 96360; 99284; J7030

== ENCOUNTER → 2021-09-05 10:07 | Outpatient (BNVA) | payer OTHER, SELFPAY | PROVIDERS: PCP Family Medicine; Visit Provider Nurse Practitioner Family | DX: I25.10 Atherosclerotic heart disease of native coronary artery without angina pectoris (principal); Z95.5 Presence of coronary angioplasty implant and graft; I50.9 Heart failure, unspecified; Z87.891 Personal history of nicotine dependence | CPT/HCPCS: 99214 ==

== ENCOUNTER 2021-09-28 10:41 | Outpatient (CLI) | payer OTHER, SELFPAY ==
--- NOTE | 2021-09-28 10:59 | USCV_ITS ---
Berry Diaz Age: 71 Gender: M : 1950 Exam Date: 09/28/2021 11:14 Ordering Phys: Fiona Stevens MD Technologist: KYLE [place] [facility] [place]: EVAL FOR CAROTID STENOSIS Risk Factors: Previous Vascular Surgery: Right Brachial BP: / Left Brachial BP: / Right Left Velocity (cm/s) Spectral Plaque Velocity (cm/s) Spectral Plaque Syst/Diast Broadening Syst/Diast Broadening 87.30/ 9.40 Prox CCA 106.90/ 16.50 72.60/ 12.00 Mid CCA 93.70 / 18.70 83.70/ 12.00 Distal CCA 64.90 / 16.20 84.60/ 17.10 Prox ICA 70.60 / 18.70 117.60/27.40 Mid ICA 82.50 / 14.60 110.00/28.20 Distal ICA 68.70 / 16.20 232.10 ECA 191.10 1.35 ICA/CCA 0.77 Antegrade Vertebral Antegrade 46.10/ 10.30 cm/s 35.00/ 9.30 cm/s Tri Subclavian Tri 111.4 112.4 0 0 CONCLUSIONS Right ICA stenosis <50%. Mild atheromatous plaque right carotid bulb/ICA. Left ICA stenosis <50%. Mild atheromatous plaque left carotid bulb/ICA. Normal antegrade Doppler flow noted in the right vertebral artery. Normal antegrade Doppler flow noted in the left vertebral artery. Chiki Middleton MD (Electronically Signed) Final Date: 29 September 2021 08:27 S
== END 2021-09-28 10:42 | disposition home or self-care (01) ==
LOC: RAD 10:46
PROVIDERS: PCP Family Medicine; Visit Provider Family Medicine
DX: I65.23 Occlusion and stenosis of bilateral carotid arteries (principal)
CPT/HCPCS: 93880

== ENCOUNTER 2021-10-11 07:21 | Outpatient (CLI) | payer OTHER, SELFPAY ==
--- NOTE | 2021-10-11 08:30 | USCV_ITS ---
Berry iDaz Age: 71 Gender: M : 1950 Exam Date: 10/11/2021 08:48 Ordering Phys: Fiona Stevens MD Technologist: Zack Ambriz Exam Location: [facility] – [place] Indication: screening HISTORY: Diameter (cm) AP x Transverse x Length Velocity (cm/s) Waveform Prox Aorta: 1.91 x 2.22 x 22.50 Mid Aorta: 1.85 x 2.26 x 66.70 Distal Aorta: 1.41 x 1.67 x 44.00 Right Iliac Prox: 0.77 x 1.23 x 101.60 Left Iliac Prox: 0.93 x 0.97 x 90.80 Stent Prox Landing x x Aneurysmal Sac Max x x Lt Lat Sac Dim Rt Lat Sac Dim Stent Dist Landing x x Right Iliac Stent x x Left Iliac Stent x x Right Renal Art Left Renal Art FINDINGS: Comparison: none available. No evidence of abdominal aortic or bilateral iliac aneurysm. Ectatic abdominal aorta with evidence of atherosclerotic plaque noted. There is no evidence of a right common iliac artery aneurysm. There is no evidence of right common iliac artery stenosis. There is no evidence of a left common iliac artery aneurysm. There is no evidence of left common iliac artery stenosis. CONCLUSIONS No evidence of abdominal aortic or bilateral iliac aneurysm. Dr. Traci Andrews DO (Electronically Signed) Final Date: 11 October 2021 15:20 S
== END 2021-10-11 07:22 | disposition home or self-care (01) ==
PROVIDERS: PCP Family Medicine; Visit Provider Family Medicine
DX: Z13.6 Encounter for screening for cardiovascular disorders (principal)
CPT/HCPCS: 76706

== ENCOUNTER → 2021-10-30 13:35 | Outpatient (BNVA) | payer OTHER, SELFPAY | PROVIDERS: PCP Family Medicine; Visit Provider Internal Medicine | DX: I25.10 Atherosclerotic heart disease of native coronary artery without angina pectoris (principal); I50.9 Heart failure, unspecified; Z87.891 Personal history of nicotine dependence | CPT/HCPCS: 99214 ==

== ENCOUNTER → 2021-12-12 11:24 | Outpatient (BNVA) | payer OTHER, SELFPAY | PROVIDERS: PCP Family Medicine; Visit Provider Podiatrist Foot & Ankle Surgery | DX: E11.8 Type 2 diabetes mellitus with unspecified complications (principal); L84 Corns and callosities; L60.3 Nail dystrophy; Z89.422 Acquired absence of other left toe(s); I73.9 Peripheral vascular disease, unspecified; Z89.419 Acquired absence of unspecified great toe; N18.1 Chronic kidney disease, stage 1 | CPT/HCPCS: 11056; 11721 ==

== ENCOUNTER → 2022-03-20 09:55 | Outpatient (BNVA) | payer OTHER, SELFPAY | PROVIDERS: PCP Family Medicine; Visit Provider Podiatrist Foot & Ankle Surgery | DX: E11.22 Type 2 diabetes mellitus with diabetic chronic kidney disease (principal); Z79.4 Long term (current) use of insulin; N18.1 Chronic kidney disease, stage 1; L84 Corns and callosities; L60.3 Nail dystrophy; Z89.422 Acquired absence of other left toe(s); Z89.419 Acquired absence of unspecified great toe | CPT/HCPCS: 11056; 11721 ==

== ENCOUNTER 2022-06-29 19:41 | Inpatient (IN) | payer OTHER, SELFPAY ==
[2022-06-29] VITALS (14 sets, daily range): BP systolic 164–244; BP diastolic 88–141; PULSE 84–109; RESP 16–30; TEMP 36.7; O2SAT 5–97; BMI 34.0
--- NOTE | 2022-06-29 20:20 | XRR_ITS ---
PROCEDURE INFORMATION: Exam: XR Chest Exam date and time: 06/29/2022 8:30 PM Age: 72 years old Clinical indication: Shortness of breath; Prior surgery; Surgery type: Stents; Additional info: SOB TECHNIQUE: Imaging protocol: Radiologic exam of the chest. Views: 1 view. COMPARISON: CR (CHEST, ) 08/27/2021 12:01 PM FINDINGS: Lungs: Subtle left mid lung and left basilar opacities and right infrahilar opacity. Pleural spaces: Unremarkable. No pleural effusion. No pneumothorax. Heart/Mediastinum: Unremarkable. No cardiomegaly. Bones/joints: Unremarkable. XR/XR chest 1V portable [id number] IMPRESSION: Subtle left mid lung and left basilar opacities and right infrahilar opacity suspicious for multifocal pneumonia.
[2022-06-29] MEDS: FUROsemide 10 mg/mL SDV 10mL 80 MG IVP (20:37)
[2022-06-29 20:44] LABS: Basophils % 0.4 %; Eosinophils # 0.2 10^3/uL (0.0-0.8); Eosinophils % 1.6 %; Hematocrit 47.7 % (42.0-52.0); Hemoglobin 15.7 g/dL (11.7-16.6); Lymphocytes # 1.1 10^3/uL (0.8-4.8); Lymphocytes % 11.8 %; Mean Corpuscular HGB Conc 32.9 g/dL (30.0-36.0); Mean Platelet Volume 11.4 fL (7.4-10.4); Monocytes # 0.9 10^3/uL (0.2-0.9); Monocytes % 9.9 %; Neutrophils % 75.8 %; Nucleated Red Blood Cells % 0 %; Platelet Count 220 10^3/cmm (130-400); Red Blood Count 5.24 10^6/uL (4.1-5.3); Red Cell Distribution Width 12.9 % (12.1-15.1); White Blood Count 9.4 10^3/uL (4.0-10.0)
[2022-06-29] MEDS: ipratropium 0.5 mg/2.5 mL Neb INHALATION (20:50)
[2022-06-29 20:54] LABS: ABG PCO2 40.6 mmHg (35-45); Arterial Blood Gas Hematocrit 48.2 % (42-52); Base Excess ABG 0.1 mmol/L (-2.0-2.0); Blood Gas Allen Test Pos; Blood Gas Sample Site Radial, right; Blood Gas Sample Type Arterial; Carboxyhemoglobin 1.3 %THgb (0.4-20.1); Methemoglobin 0.3 % (0.4-1.5); Oxygen Device NC; PO2 ABG 73.4 mmHg (80.0-100.0); Total Hemoglobin 15.7 g/dL (14-18)
[2022-06-29 20:55] LABS: Lactic Sepsis W/Reflex 1.9 mmol/L (0.5-2.2)
[2022-06-29 21:08] LABS: Troponin(5th) Baseline 52 ng/L (0-15)
[2022-06-29 21:18] LABS: Alanine Aminotransferase 34 U/L (0-41); Albumin Level 3.9 g/dL (3.5-5.2); Alkaline Phosphatase 112 U/L (40-130); Anion Gap 16.1 (5-19); Aspartate Amino Transferase 50 U/L (0-40); Blood Urea Nitrogen 24 mg/dL (8-23); Calcium 8.6 mg/dL (8.5-10.5); Carbon Dioxide 24 mmol/L (22-29); Chloride 99 mmol/L (98-107); Globulin 3.8 g/dL (1.3-4.6); Glucose 246 mg/dL (65-115); NT Pro B Type Natriuretic Pept 1362 pg/mL (0-125); Osmolality Calculated 292 mOsm/kg (285-295); Potassium 4.1 mmol/L (3.5-5.1); Sodium 135 mmol/L (136-145); Total Bilirubin 0.6 mg/dL (0.15-1.2); Total Protein 7.7 g/dL (6.6-8.7)
--- NOTE | 2022-06-29 21:27 | CTR_ITS ---
PROCEDURE INFORMATION: Exam: CTA Chest With Contrast Exam date and time: 06/29/2022 9:42 PM Age: 72 years old Clinical indication: Shortness of breath and other: Hypoxia, tachycardia; Prior surgery; Surgery date: 6+ months; Patient HX: Chf, mi x2 last year, two heart stents per PT; Additional info: Hypoxia tachycardia SOB TECHNIQUE: Imaging protocol: Computed tomographic angiography of the chest with contrast. 3D rendering (Not supervised by radiologist): MIP and/or 3D reconstructed images were created by the technologist. Radiation optimization: All CT scans at this facility use at least one of these dose optimization techniques: automated exposure control; mA and/or kV adjustment per patient size (includes targeted exams where dose is matched to clinical indication); or iterative reconstruction. Contrast material: OMNI 350; Contrast volume: 100 ml; Contrast route: INTRAVENOUS (IV); COMPARISON: CR (CHEST, ) 06/29/2022 8:30 PM RADIATION DOSE METRICS: Total DLP (mGy-cm): 525.86 FINDINGS: Pulmonary arteries: Normal. No pulmonary emboli. Aorta: Unremarkable. No aortic aneurysm. No aortic dissection. Lungs: There is moderate bilateral interstitial lung disease. There is ground-glass opacification especially in the upper and lower lobes of the lung. There is bilateral lower lobe lung consolidation. Pleural spaces: There are small pleural effusions. No pneumothorax. Heart: There is mitral valve calcification. Coronary arteries: There is coronary artery calcification.Cardiomegaly is identified. Lymph nodes: There are prevascular and right paratracheal mediastinal lymph nodes with a short-axis diameter of 1 cm. Bones/joints: Degenerative change is identified in the spine. There is no evidence for acute fracture or malalignment. Soft tissues: Unremarkable. CT/CT angio chest PE protcl [id number] IMPRESSION: There is no evidence for a pulmonary artery embolus. There is bilateral lower lobe lung consolidation consistent with atelectasis and/or pneumonia. There is bilateral interstitial lung disease and also ground-glass lung opacification suggestive of pulmonary edema. There are small pleural effusions.
[2022-06-29] MEDS: iohexol 350 mg/mL 500 mL Btl (per mL) IV (21:58)
--- NOTE | 2022-06-29 22:15 | W.ED.SOB ---
HPI - SOB/Dyspnea General: Chief Complaint: Shortness of Breath/Dyspnea Stated Complaint: sob Time Seen by Provider: 06/29/22 20:12 Source: patient and family History of Present Illness: HPI Narrative: 72-year-old gentleman complains of shortness of breath. He does not normally use oxygen. He presents with significantly increasing shortness of breath over the course of the last 24 hours. He had had a cough a few days before that with some congestion. He thought he might have the flu . Shortness of breath is improved with oxygen on arrival. He does have a history of coronary disease and hypertension as well as diabetes he denies any chest pain. MD elicited complaint: shortness of breath and cough Pertinent past history: diabetes and other Onset (ago): hour(s) Context: recent illness Exacerbating factors: lying flat and exertion Relieving factors: oxygen Known history of: diabetes and other Associated symptoms: Reports chest congestion, cough, diaphoresis and dizziness; Deny abdominal pain, chest pain, fever(s), syncope or vomiting Treatment prior to arrival: none Review of Systems Const: Reports: diaphoresis; Denies: fever(s) Card: Denies: chest pain or syncope Resp: Reports: dyspnea, productive cough and chest congestion GI: Denies: abdominal pain or vomiting : Denies: difficulty urinating Neuro: Reports: dizziness PFSH ED PFSH: Medical History Atherosclerosis of coronary artery Chronic kidney disease, stage 1 Diabetes 1.5, managed as type 2 Essential (primary) hypertension History of amputation of great toe Osteomyelitis, unspecified Peripheral vascular disease, unspecified Venous insufficiency Surgical History History of amputation of lesser toe of left foot Stented coronary artery Family History Father Cancer Stroke Mother Diabetes Denies family history of CAD (coronary artery disease) Clotting disorder Dementia Hyperlipidemia Psychiatric illness Chronic kidney disease (CKD) Suicide Anesthesia complication Bleeding disorder Family history of premature coronary artery disease Lung disease Hypertension Social History Smoking and tobacco status: former smoker Quit status (tobacco): has quit using tobacco Second hand smoke exposure: No Smoking risk assessment/counseling performed?: No Alcohol intake: never Desire information about alcohol rehabilitation?: No Counseling given: No Last alcohol use date: 07/24/18 Desire information about substance/drug rehabilitation?: No Counseling given: No Adopted: No Caregiver/support person: Yes Lives independently: Yes Household members: spouse Housing: House Marital status: Number of children: 6 Number of grandchildren: 11 Highest education level completed: Bachelor's Degree service: Yes Current occupational status: retired Pets and animals: Yes History of recent travel: No Leisure activites: fishing Current gender identity: Male Cindy/Taoist: Pentecostalism Special cindy needs: No Agree to transfusion: Yes Financial difficulty paying for basics: Not Very Hard Physical Exam Const: GENERAL APPEARANCE: cooperative, in distress, ill appearing and diaphoretic; not frail appearing HENMT: COMMON NORMALS: normocephalic, atraumatic and Normal external nose present HEAD & SCALP: normocephalic and atraumatic FACE & SINUS: normal facial exam and face symmetric NOSE: Normal external nose present Eye: COMMON NORMALS: Equal, round and reactive pupils present and EOMs intact bilaterally PUPIL: Yes Equal, round and reactive pupils present Neck/C-Spine: GENERAL: Yes trachea midline Chest: CHEST: Yes Symmetrical chest wall rise Resp: EFFORT & INSPECTION: No able to speak in complete sentences, Yes tachypneic and Yes respiratory distress AUSCULTATION: rales and wheezes Cardio: COMMON NORMALS: regular rhythm RATE: tachycardic RHYTHM: regular rhythm GI: COMMON NORMALS: Normal to inspection, nondistended, normoactive bowel sounds present Extremity: COMMON NORMALS: no pedal edema Neuro: ANDREA COMA SCALE: document GCS findings Vista coma scale eye opening: Spontaneous Andrea coma scale verbal response: Orientated Vista coma scale motor response: Obey commands Vista coma scale total score: 15 SENSORY EXAM: Yes extremities (intact) Psych: COMMON NORMALS: speech normal SPEECH: Yes normal speech Skin: COMMON NORMALS: no rashes or lesions noted GENERAL SKIN EXAM: no rashes or lesions noted Course Vital Signs: Vital signs: Vital Signs Temperature 98 F 06/30/22 15:58 Pulse Rate 79 06/30/22 15:58 Respiratory Rate 18 06/30/22 15:58 Blood Pressure 145/77 06/30/22 15:58 Pulse Oximetry 94 06/30/22 15:58 Oxygen Delivery Me thod 06/30/22 15:31 Oxygen Flow Rate 2 06/30/22 15:31 MDM - SOB/Dyspnea Medical Decision Making 72 year old gentleman who was quite hypoxic on arrival. He's much improved after administration of oxygen and is feeling better. EKG showed tachycardia with nonspecific ST wave changes. his chest X-rays showed mild fluffy bilateral infiltrates. He sounded wet on exam, and was given lasix initially. And he's beginning to diurese a bit now. BNP elevated. First troponin was elevated. Because of the significance of hypoxia, with tachycardia, and subtle findings on chest X-ray, CTA was ordered. It does not reveal a PE or dissection. There is some pulmonary edema present. there may be infiltrates as well. He is treated for both in the ER. He'll be admitted for hypoxic respiratory failure. hospitalist has seen in the emergency department. Lab Data 06/29/22 20:14 06/29/22 20:14 Labs/Radiology: Radiology Impressions Chest X-Ray 06/29/22 20:20 IMPRESSION: Subtle left mid lung and left basilar opacities and right infrahilar opacity suspicious for multifocal pneumonia. Chest CTA 06/29/22 21:27 IMPRESSION: There is no evidence for a pulmonary artery embolus. There is bilateral lower lobe lung consolidation consistent with atelectasis and/or pneumonia. There is bilateral interstitial lung disease and also ground-glass lung opacification suggestive of pulmonary edema. There are small pleural effusions. Laboratory Results WBC 9.4 10^3/uL (4.0-10.0) 06/29/22 20:14 RBC 5.24 10^6/uL (4.1-5.3) 06/29/22 20:14 Hgb 15.7 g/dL (11.7-16.6) 06/29/22 20:14 Hct 47.7 % (42.0-52.0) 06/29/22 20:14 MCV 91.0 fl (80-94) 06/29/22 20:14 MCH 30.0 pg (28.0-34.0) 06/29/22 20:14 MCHC 32.9 g/dL (30.0-36.0) 06/29/22 20:14 RDW 12.9 % (12.1-15.1) 06/29/22 20:14 Plt Count 220 10^3/cmm (130-400) 06/29/22 20:14 MPV 11.4 fL (7.4-10.4) H 06/29/22 20:14 Neut % (Auto) 75.8 % 06/29/22 20:14 Lymph % (Auto) 11.8 % 06/29/22 20:14 [place] % (Auto) 9.9 % 06/29/22 20:14 Eos % (Auto) 1.6 % 06/29/22 20:14 Baso % (Auto) 0.4 % 06/29/22 20:14 Neut # (Auto) 7.10 10^3/uL (1.8-7.7) 06/29/22 20:14 Lymph # (Auto) 1.1 10^3/uL (0.8-4.8) 06/29/22 20:14 [place] # (Auto) 0.9 10^3/uL (0.2-0.9) 06/29/22 20:14 Eos # (Auto) 0.2 10^3/uL (0.0-0.8) 06/29/22 20:14 Baso # (Auto) 0.0 10^3/uL (0.0-0.1) 06/29/22 20:14 Nucleated RBC % (auto) 0 % 06/29/22 20:14 Nucleated RBCs # 0.0 /100WBC 06/29/22 20:14 D-Dimer 0.80 ug/mIFEU (0-0.59) H 06/29/22 20:14 Specimen Type Arterial 06/29/22 20:50 Sample Site Radial, right 06/29/22 20:50 ABG pH 7.40 (7.35-7.45) 06/29/22 20:50 ABG pCO2 40.6 mmHg (35-45) 06/29/22 20:50 ABG pO2 73.4 mmHg (80.0-100.0) L 06/29/22 20:50 ABG HCO3 25.0 mmol/L (22-26) 06/29/22 20:50 ABG Base Excess 0.1 mmol/L (-2.0-2.0) 06/29/22 20:50 Axel Test Pos 06/29/22 20:50 Hematocrit 48.2 % (42-52) 06/29/22 20:50 Hgb O2 Saturation 94.0 % (95-100) L 06/29/22 20:50 Carboxyhemoglobin 1.3 %THgb (0.4-20.1) 06/29/22 20:50 Methemoglobin 0.3 % (0.4-1.5) L 06/29/22 20:50 Total Hemoglobin 15.7 g/dL (14-18) 06/29/22 20:50 O2 Delivery Device Nc 06/29/22 20:50 O2 Liters/Min 5.0 % 06/29/22 20:50 Electronics Inspector ID Hinja 06/29/22 20:50 Sodium 135 mmol/L (136-145) L 06/29/22 20:14 Potassium 4.1 mmol/L (3.5-5.1) 06/29/22 20:14 Chloride 99 mmol/L (98-107) 06/29/22 20:14 Carbon Dioxide 24 mmol/L (22-29) 06/29/22 20:14 Anion Gap 16.1 (5-19) 06/29/22 20:14 BUN 24 mg/dL (8-23) H 06/29/22 20:14 Creatinine 1.0 mg/dL (0.7-1.2) 06/29/22 20:14 GFR Calculation Not Reportable 06/29/22 20:14 Glucose 246 mg/dL (65-115) H 06/29/22 20:14 Calculated Osmolality 292 mOsm/kg (285-295) 06/29/22 20:14 Lactic Acid 1.9 mmol/L (0.5-2.2) 06/29/22 20:40 Calcium 8.6 mg/dL (8.5-10.5) 06/29/22 20:14 Total Bilirubin 0.6 mg/dL (0.15-1.2) 06/29/22 20:14 AST 50 U/L (0-40) H 06/29/22 20:14 ALT 34 U/L (0-41) 06/29/22 20:14 Alkaline Phosphatase 112 U/L (40-130) 06/29/22 20:14 Troponin T Baseline 52 ng/L (0-15) H 06/29/22 20:14 Troponin T 120 Minute 76.26 ng/L (0-15) H 06/29/22 21:59 Delta Troponin T 24.26 ABS# (0-10) H* 06/29/22 21:59 NT-Pro-B Natriuret Pep 1362 pg/mL (0-125) H 06/29/22 20:14 Total Protein 7.7 g/dL (6.6-8.7) 06/29/22 20:14 Albumin 3.9 g/dL (3.5-5.2) 06/29/22 20:14 Globulin 3.8 g/dL (1.3-4.6) 06/29/22 20:14 Discharge Plan Discharge Patient Disposition: Admitted As Inpatient Admit Provider: Rina Alejo Clinical Impression: Respiratory failure, Congestive heart failure, Pneumonia Condition: Stable Coding Level of Care Code 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
[2022-06-29 22:24] LABS: Troponin 5 2HR 76.26 ng/L (0-15)
--- NOTE | 2022-06-29 22:26 | ECG_ITS ---
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 Measurements Intervals [place] Rate: 97 P: 121 [place]: 180 QRS: 149 QRSD: 137 T: 81 QT: 384 QTc: 488 Interpretive Statements SINUS RHYTHM LEFT ATRIAL ENLARGEMENT [-0.15mV P-WAVE IN V1/V2] INTRAVENTRICULAR CONDUCTION DELAY [130+ ms QRS DURATION] POSSIBLE RIGHT VENTRICULAR HYPERTROPHY [SOME/ALL OF: PROMINENT R IN V1, LATE TRANSITION, RAD, NINA, SSS] INFERIOR MYOCARDIAL INFARCTION , PROBABLY OLD [40+ ms Q WAVE AND/OR ST/T ABNORMALITY IN II/aVF] ANTEROLATERAL MYOCARDIAL INFARCTION , OF INDETERMINATE AGE [40+ ms Q WAVE IN I/aVL/V3-V6] Compared to ECG 08/27/2021 11:42:09 Atrial abnormality now present First degree AV block no longer present Myocardial infarct finding still present Electronically Signed On 07-01-2022 20:09:16 PRODUCTION EDITOR by Eleni Leong M.D. [id number]
--- NOTE | 2022-06-29 22:50 | P.HP_ITS ---
Providers/Chief Complaint Admitting Physician: Rina Alejo MD Primary Care Provider: Fiona Stevens MD Chief Complaint: sob History of Present Illness Berry Diaz is a 72 year old male with past medical history of diabetes mellitus, hypertension, STEMI August 2021, CAD status post PCI with JANNETTE x2, hypertension, osteomyelitis, CKD stage I, peripheral vascular disease presented to the hospital today for fever and congestion along with shortness of breath. He is not on any oxygen at home. He is a former smoker, quit 40 years ago. He says that he has had a high fever at home although cannot give me any numbers, has been feeling congested and has taken Mucinex outpatient. He states he did not seek any medical attention for this up until now. Denies any nausea vomiting diarrhea. Has been vaccinated for COVID along with booster shot and has had the pneumonia shot. He had COVID last year in July however otherwise has been okay. He is producing clear phlegm that later changed to bonilla and got darker color. He has not been on any antibiotics outside the hospital. Patient is now requiring 4 L of oxygen. is present at bedside. [facility] He has brought his medications from home. Patient is on aspirin, Brilinta. He says he was at [facility] after a STEMI and received 2 stents last year in August. He had a PCI to LAD done. He follows with Dr. Helton as an outpatient. Denies chest pain and shortness of breath at this time when seen. ED course: BNP 2500. D-dimer 0.80. BUN 24, creatinine 1.0, glucose 246, hemoglobin A1c 7.8, lactic acid 2.1, initial troponin 52, second troponin 76.26. Third troponin is pending at this time. Chest x-ray done showed subtle left midlung and left basilar opacities and right infrahilar opacity suspicious for multifocal pneumonia. Subsequently CTA was obtained which showed small pleural effusions, bilateral lower lobe lung consolidation consistent with atelectasis or pneumonia. Bilateral interstitial lung disease and also groundglass lung opacification suggestive of pulmonary edema present. Patient did receive Lasix 80 mg IV x1 in the ER. COVID swab was ordered but patient declined that at this time. Influenza swab was obtained and that was negative. He was also given a d ose of Rocephin and azithromycin. He is afebrile in the ER. Medications/Allergies Home Medications Medication Instructions Recorded Confirmed Last Taken Type furosemide 40 mg tablet 40 mg PO DAILY 06/23/19 06/30/22 1 Day Ago History ~06/29/22 40 mg insulin regular human 100 unit/mL See Rx Instructions .Route .COMPLEX 06/23/19 03/20/22 Unknown History injection solution (Humulin R Regular U-100 Insulin) lisinopril 40 mg tablet See Rx Instructions .Route .COMPLEX 06/23/19 06/30/22 1 Day Ago History ~06/29/22 aspirin 81 mg tablet,delayed 81 mg PO DAILY 08/12/21 06/30/22 1 Day Ago History release (Rosalee Low Dose Aspirin) ~06/29/22 81 mg insulin glargine 100 unit/mL (3 30 unit SUBCUT BID 08/12/21 03/20/22 08/27/21 History mL) subcutaneous pen (Lantus Solostar U-100 Insulin) gabapentin 800 mg tablet See Rx Instructions .Route .COMPLEX 08/27/21 06/30/22 1 Day Ago History ~06/29/22 isosorbide mononitrate 30 mg 30 mg PO DAILY 08/27/21 06/30/22 1 Day Ago History tablet,extended release 24 hr ~06/29/22 30 mg ticagrelor 90 mg tablet (Brilinta) 90 mg PO BID 08/27/21 06/30/22 1 Day Ago History ~06/29/22 90 mg carvedilol 25 mg tablet See Rx Instructions .Route .COMPLEX 06/30/22 06/30/22 1 Day Ago History ~06/29/22 25 mg Allergies Allergy/AdvReac Type Severity Reaction Status Date / Time No Known Allergies Allergy Verified 03/20/22 10:08 PFSH Acute PFSH: Medical History (Updated 06/30/22 @ 03:37 by Rina Alejo MD) Atherosclerosis of coronary artery Chronic kidney disease, stage 1 Diabetes 1.5, managed as type 2 Essential (primary) hypertension History of amputation of great toe Osteomyelitis, unspecified Peripheral vascular disease, unspecified Venous insufficiency Surgical History (Updated 06/30/22 @ 03:37 by Rina Alejo MD) History of amputation of lesser toe of left foot Stented coronary artery Family History Father Cancer Stroke Mother Diabetes Denies family history of CAD (coronary artery disease) Clotting disorder Dementia Hyperlipidemia Psychiatric illness Chronic kidney disease (CKD) Suicide Anesthesia complication Bleeding disorder Family history of premature coronary artery disease Lung disease Hypertension Social History Smoking and tobacco status: former smoker Quit status (tobacco): has quit using tobacco Second hand smoke exposure: No Smoking risk assessment/counseling performed?: No Alcohol intake: never Desire information about alcohol rehabilitation?: No Counseling given: No Last alcohol use date: 07/24/18 Desire information about substance/drug rehabilitation?: No Counseling given: No Adopted: No Caregiver/support person: Yes Lives independently: Yes Household members: spouse Housing: House Marital status: Number of children: 6 Number of grandchildren: 11 Highest education level completed: Bachelor's Degree service: Yes Current occupational status: retired Pets and animals: Yes History of recent travel: No Leisure activites: fishing Current gender identity: Male Cindy/Orthodox: Catholic Special cindy needs: No Agree to transfusion: Yes Financial difficulty paying for basics: Not Very Hard Vitals/I&O/Wt Last Vital Signs Temp 98.0 F 06/29/22 19:48 Pulse 93 06/30/22 01:02 Resp 16 06/30/22 01:02 BP 141/82 06/30/22 01:02 Pulse Ox 94 06/30/22 01:02 O2 Del Method 06/30/22 00:00 O2 Flow Rate 2 06/30/22 00:28 06/29/22 06/29/22 06/30/22 14:59 22:59 06:59 Intake Total 300 / 300 Output Total 200 / 200 Balance -200 / -200 300 / 100 Weight last 48 hrs Weight 123.377 kg Physical Exam Narrative: General: Alert oriented x3, patient seen laying in bed on 4 L nasal cannula breathing quite comfortably, no acute respiratory distress. HEENT: Normocephalic, atraumatic, EOMI, Cardio: Regular rate rhythm, normal S1-S2, Respiratory: Mild rhonchi at bases otherwise very clear to auscultation good bilateral air entry at this time. Patient also recently received a DuoNeb. GI: Abdomen soft, nontender, nondistended, bowel sounds + Extremities: Trace lower extremity edema present at this time. Data 06/29/22 20:14 06/29/22 20:14 Micro: Microbiology 06/29/22 20:35 Blood Culture - Preliminary Blood SPECIMEN COLLECTED 06/29/22 20:14 Blood Culture - Preliminary Blood SPECIMEN COLLECTED A&P Assessment and plan (1) Congestive heart failure: (2) Chronic kidney disease, stage 1: (3) Pneumonia: (4) Peripheral vascular disease, unspecified: (5) Diabetes 1.5, managed as type 2: (6) Essential (primary) hypertension: (7) CAD (coronary artery disease): (8) Stented coronary artery: Plan #Multi focal pneumonia #Acute on chronic congestive heart failure, decompensated #Bilateral pleural effusions #Troponin elevation, NSTEMI most likely type II #History of CAD status post PCI times JANNETTE x2 #Hypertension #Hyperlipidemia #Oxygen dependency #Former smoker -Continue Lasix 40 IV daily. Patient is status post Lasix 80x1 ? Continue DuoNeb every 4 hour scheduled ? Influenza is negative. COVID test was declined by the patient ? Continue Lantus 30 twice daily, moderate intensity sliding scale insulin ? Continue Imdur, lisinopril, Brilinta, aspirin, Coreg ? Continue azithromycin, ceftriaxone ? Check procalcitonin, bacterial antigen, Legionella, Streptococcus, blood culture, sputum culture gram stain ? Continue to trend the troponins. - Wean oxygen as able ? Check echo ? EKG did not show any acute ischemic changes. 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
[2022-06-29 22:56] LABS: Troponin 5 2HR Delta 24.26 ABS# (0-10)
[2022-06-29] MEDS: cefTRIAXone 1,000 MG in sodium chloride 0.9% (plus) 50 ML 100 MG IV (23:25)
--- NOTE | 2022-06-29 23:27 | PC.NURSE ---
pt refused all nasal swabs. aware
[2022-06-29] MEDS: azithromycin 500 MG in sodium chloride 0.9% 250 ML 250 MG IV (23:54)
[2022-06-30] VITALS (19 sets, daily range): BP systolic 119–201; BP diastolic 76–113; PULSE 79–117; RESP 16–20; TEMP 36.6–37.1; O2SAT 92–98
[2022-06-30] MEDS: heparin 5,000 unit/mL INJ 1 mL 5000 UNIT SUBCUT ×2 (02:15→13:01)
[2022-06-30] MEDS: ticagrelor 90 mg Tablet PO ×3 (02:15→17:26)
[2022-06-30] MEDS: acetaminophen 325 mg Tablet 650 MG PO ×3 (02:20→20:04)
--- NOTE | 2022-06-30 02:26 | ECG_ITS ---
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 Measurements Intervals [place] Rate: 114 P: 208 [place]: 191 QRS: 102 QRSD: 126 T: -15 QT: 373 QTc: 515 Interpretive Statements SINUS TACHYCARDIA RIGHT AXIS DEVIATION [QRS AXIS > 100] INFERIOR MYOCARDIAL INFARCTION , OF INDETERMINATE AGE [40+ ms Q WAVE AND/OR ST/T ABNORMALITY IN II/aVF] ANTEROLATERAL MYOCARDIAL INFARCTION , PROBABLY OLD [40+ ms Q WAVE IN I/aVL/V3-V6] Compared to ECG 06/29/2022 22:49:36 Right-axis deviation now present Sinus rhythm no longer present Atrial abnormality no longer present Intraventricular conduction delay no longer present Myocardial infarct finding still present Electronically Signed On 07-01-2022 20:12:11 HEAD CHARRER by Eleni Leong M.D. [id number]
[2022-06-30] MEDS: insulin lispro 100 unit/1 mL 12 UNIT SUBCUT (02:46)
[2022-06-30 03:05] LABS: Lactic Sepsis W/Reflex 2.1 mmol/L (0.5-2.2)
[2022-06-30 03:08] LABS: Estmated Average Glucose 177; Hemoglobin A1C 7.8 % (4.0-6.0)
[2022-06-30 03:16] LABS: Troponin 5 6HR 137.8 ng/L (0-15); Troponin 5 6HR Delta 85.8 ng/L (0-12)
[2022-06-30 03:23] LABS: NT Pro B Type Natriuretic Pept 2523 pg/mL (0-125); Procalcitonin 0.41 ng/mL (0-0.5)
--- NOTE | 2022-06-30 03:33 | USCV_ITS ---
Berry Diaz Age: 72 Gender: M : 1950 Exam Date: 06/30/2022 13:53 Ordering Phys: Rina Alejo MD Technologist: OLU Exam Location: [facility] [place] Indication: worsening heart failure BP: 127 / 76 HR: 82 Rhythm: Sinus Technical Quality: Adequate MEASUREMENTS (Male / Female) Normal Values 2D ECHO LV Diastolic Diameter PLAX 5.1 cm 4.2 - 5.9 / 3.9 - 5.3 cm LV Systolic Diameter PLAX 3.5 cm IVS Diastolic Thickness 1.0 cm 0.6 - 1.0 / 0.6 - 0.9 cm IVS Systolic Thickness 1.5 cm LVPW Diastolic Thickness 1.1 cm 0.6 - 1.0 / 0.6 - 0.9 cm LVPW Systolic Thickness 1.3 cm LVOT Diameter 2.2 cm LV Ejection Fraction 2D Teich 57.9 % LV Ejection Fraction MOD 2C 52.6 % LV Ejection Fraction 2C AL 51.4 % LA Diameter 3.9 cm M-MODE Aortic Annulus Diameter 3.0 cm LA Ao Ratio MM 1.4 MV E Point Septal Separation 1.2 cm DOPPLER AV Peak Velocity 113.0 cm/s LVOT Peak Velocity 104.0 cm/s AV Area Cont Eq vti 4.4 cm squared AV Area Cont Eq pk 3.5 cm squared MV Area PHT 3.9 cm squared Mitral E to A Ratio 0.8 MV E' Velocity 51.5 cm/s Mitral E to MV E' Ratio 19.8 Mitral E to LV E' Lateral Ratio 16.2 Mitral E to LV E' Septal Ratio 26.2 TV Peak E Velocity 43.0 cm/s PV Peak Velocity 79.0 cm/s FINDINGS Left Ventricle Normal left ventricular size with a slightly diminished ejection fraction of around 52%. Mild concentric left ventricular hypertrophy. Mild diffuse hypokinesia of the septum and anteroseptal segments. Right Ventricle The right ventricle is normal in size and function. Right Atrium The right atrium is normal in size. Left Atrium The left atrium is normal in size. Mitral Valve Thickened mitral valve. Moderate mitral annular calcification. Aortic Valve Thickened aortic valve. Tricuspid Valve No gross abnormalities noted Pulmonic Valve No gross abnormalities noted Pericardium Normal pericardium without effusion. Aorta Normal ascending aorta dimension. IVC The inferior vena cava appears normal. CONCLUSIONS Normal left ventricular size with a slightly diminished ejection fraction of around 52%. Mild concentric left ventricular hypertrophy. Mild diffuse hypokinesia of the septum and anteroseptal segments. Thickened mitral valve. Moderate mitral annular calcification. There is no pericardial effusion. Technically difficult study because of the poor ultrasonic window. Dr Eleni Leong MD FAC (Electronically Signed) Final Date: 30 June 2022 21:25 S
[2022-06-30 04:23] LABS: Reflex Lactate Order REFLEX LACTIC ORDERD
[2022-06-30] MEDS: FUROsemide 10 mg/mL SDV 4mL 40 MG IVP (04:35)
--- NOTE | 2022-06-30 05:44 | ECG_ITS ---
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 Measurements Intervals [place] Rate: 113 P: 107 [place]: 249 QRS: 99 QRSD: 126 T: 14 QT: 376 QTc: 517 Interpretive Statements SINUS TACHYCARDIA WITH FIRST DEGREE AV BLOCK BORDERLINE RIGHT AXIS DEVIATION [QRS AXIS > 90] INFERIOR MYOCARDIAL INFARCTION , OF INDETERMINATE AGE [40+ ms Q WAVE AND/OR ST/T ABNORMALITY IN II/aVF] ANTEROLATERAL MYOCARDIAL INFARCTION , PROBABLY OLD [40+ ms Q WAVE IN I/aVL/V3-V6] Compared to ECG 06/30/2022 03:29:58 First degree AV block now present Myocardial infarct finding still present Electronically Signed On 07-01-2022 20:12:31 CYCLE DIRECTOR by Eleni Leong M.D. [id number]
[2022-06-30 06:11] LABS: Lactic Acid level (Lactate) 1.7 mmol/L (0.5-2.2)
--- NOTE | 2022-06-30 06:20 | PC.NURSE ---
pt has a Dexcom on his left arm, pt informed that hospital would like to check blood glucose with the facility meters to be able to administer the right dose of insulin. pt refuses to let hospital staff check his blood glucose with facility meters.
[2022-06-30 06:30] LABS: Glucose Point of Care 264 mg/dL (70-110)
[2022-06-30] MEDS: ipratropium-albuterol 3 mL Neb INHALATION ×4 (07:28→21:15)
[2022-06-30] MEDS: aspirin 81 mg EC Tablet PO (08:57)
[2022-06-30] MEDS: isosorbide mononitrate ER 30 mg Tablet PO (08:57)
[2022-06-30] MEDS: lisinopril 20 mg Tablet PO (08:58)
[2022-06-30] MEDS: gabapentin 400 mg Capsule 800 MG PO (08:59)
[2022-06-30] MEDS: carvedilol 25 mg Tablet 12.5 MG PO (08:59)
[2022-06-30] MEDS: insulin lispro 100 unit/1 mL SUBCUT ×4 (09:03→21:11)
--- NOTE | 2022-06-30 09:33 | ECG_ITS ---
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 Measurements Intervals [place] Rate: 105 P: 189 [place]: 268 QRS: 99 QRSD: 127 T: 38 QT: 390 QTc: 517 Interpretive Statements ECTOPIC ATRIAL TACHYCARDIA WITH FIRST DEGREE AV BLOCK LEFT ATRIAL ENLARGEMENT [-0.15mV P-WAVE IN V1/V2] BORDERLINE RIGHT AXIS DEVIATION [QRS AXIS > 90] INFERIOR MYOCARDIAL INFARCTION , PROBABLY OLD [40+ ms Q WAVE AND/OR ST/T ABNORMALITY IN II/aVF] ANTEROLATERAL MYOCARDIAL INFARCTION , PROBABLY OLD [40+ ms Q WAVE IN I/aVL/V3-V6] Compared to ECG 06/30/2022 06:01:29 Atrial abnormality now present Sinus tachycardia no longer present Myocardial infarct finding still present Electronically Signed On 07-01-2022 19:51:14 BUSINESS DEVELOPMENT REPRESENTATIVE by Eleni Leong M.D. [id number]
[2022-06-30] MEDS: insulin glargine 100 units/1 mL 30 UNIT SUBCUT ×2 (10:17→17:42)
--- NOTE | 2022-06-30 10:33 | PM.CONSULT ---
Providers/Reason For Consult Consulting Physician/Specialty*: AGA Leong MD/cardiology Reason for Consult*: Patient with a history of atherosclerotic heart disease, status post PCI, presenting with shortness of breath and fever. Elevated troponin T. Requesting Physician: Dr. Arreaga Attending Physician: Dc Arreaga Primary Care Provider: Fiona Stevens MD History of Present Illness History of Present Illness Berry Diaz is a 72 year old male with a history of three-vessel coronary artery disease including left main, status post PCI in July 2021, he is now presenting with complaints of cough shortness of breath and a low-grade fever. He was found to have multilobar pneumonia. He also was found to have elevated troponin T. Cardiology consult is requested for further cardiac evaluation and recommendations. This patient had the cardiac catheterization in July of last year here at [facility]. He was found to have severe three-vessel coronary artery disease. Apparently he had episodes of pulmonary edema and hypotension. For that reason, he was transferred to [facility] for possible surgical revascularization. At the [facility], patient underwent a two-vessel angioplasty. Details are not available at this time. According the patient, he has been doing okay since then up until last when he started having a cough and shortness of breath with a low-grade fever. He was getting progressively weaker and more short of breath since then. So he decided to come to the hospital last evening. His initial troponin T was found to be elevated. However the 2-hour and 6-hour troponin T's were trending down. He denies any chest pain. No palpitation or dizziness. The EKG initially revealed any acute ST-T changes. According the patient, he was told at the [facility] that he may require more coronary interventions in the future. I reviewed the medical records from the [facility]. Apparently this patient had a high risk PCI of the left main and chronic subtotal occlusion of the proximal LAD lesion by placing 2 overlapping stents in the left main and LAD on 18 August 2021. He had a lesion in the mid RCA and intermedius artery which were thought to be appropriate to undergo staged intervention after 3 to 4 months. He had an echocardiogram at the [facility] which revealed an LV ejection fraction of 39%. Review of Systems Narrative: CONSTITUTIONAL: Patient had a low-grade fever at home. EYES: No blurring of vision or other visual disturbances lately. [] ENT: No hoarseness of voice, auditory disturbances or sore throat. CARDIOVASCULAR: As mentioned above. RESPIRATORY: Cough and shortness of breath as mentioned above. GASTROINTESTINAL: No hematemesis or melena. GENITOURINARY: No dysuria or hematuria. INTEGUMENTARY: No skin rashes or history of skin cancer. NEURO: No transient ischemic attacks or amaurosis. PSYCHIATRIC: No history of psychosis or major depression. HEMATOLOGIC: No bleeding disorders or significant anemia. ENDOCRINE: Longstanding history of diabetes. MUSCULOSKELETAL: No recent joint pain or swelling. ALLERGY/IMMUNOLOGY: As mentioned above. Medications/Allergies Home Medications Medication Instructions Recorded Confirmed Last Taken Type furosemide 40 mg tablet 40 mg PO DAILY 06/23/19 06/30/22 1 Day Ago History ~06/29/22 40 mg insulin regular human 100 unit/mL See Rx Instructions .Route .COMPLEX 06/23/19 06/30/22 06/29/22 History injection solution (Humulin R Regular U-100 Insulin) lisinopril 40 mg tablet See Rx Instructions .Route .COMPLEX 06/23/19 06/30/22 1 Day Ago History ~06/29/22 aspirin 81 mg tablet,delayed 81 mg PO DAILY 08/12/21 06/30/22 1 Day Ago History release (Rosalee Low Dose Aspirin) ~06/29/22 81 mg insulin glargine 100 unit/mL (3 30 unit SUBCUT BID 08/12/21 06/30/22 06/29/22 History mL) subcutaneous pen (Lantus Solostar U-100 Insulin) gabapentin 800 mg tablet See Rx Instructions .Route .COMPLEX 08/27/21 06/30/22 1 Day Ago History ~06/29/22 isosorbide mononitrate 30 mg 30 mg PO DAILY 08/27/21 06/30/22 1 Day Ago History tablet,extended release 24 hr ~06/29/22 30 mg ticagrelor 90 mg tablet (Brilinta) 90 mg PO BID 08/27/21 06/30/22 1 Day Ago History ~06/29/22 90 mg carvedilol 25 mg tablet See Rx Instructions .Route .COMPLEX 06/30/22 06/30/22 1 Day Ago History ~06/29/22 25 mg Allergies Allergy/AdvReac Type Severity Reaction Status Date / Time No Known Allergies Allergy Verified 03/20/22 10:08 Current Medications Generic Name Dose Route Start Last Admin Trade Name Coleen PRN Reason Stop Dose Admin Acetaminophen 650 mg 06/30/22 01:00 06/30/22 09:17 Acetaminophen 325 Mg Tablet PO 650 mg Q6H PRN Administration Mild/Mod Pain Or Temp >/= 101 Albuterol/Ipratropium 3 ml 06/30/22 08:00 06/30/22 07:28 Ipratropium-Albuterol 3 Ml Neb INHALATION 3 ml QID.RESPIRATORY ULI Administration Aspirin 81 mg 06/30/22 09:00 06/30/22 08:57 Aspirin 81 Mg Ec Tablet PO 81 mg DAILY ULI Administration Carvedilol 12.5 mg 06/30/22 06:00 06/30/22 08:59 Carvedilol 25 Mg Tablet PO 12.5 mg QAM ULI Administration Furosemide 40 mg 06/30/22 03:45 06/30/22 04:35 Furosemide 10 Mg/Ml Sdv 4ml IVP 40 mg Q24H ULI Administration Gabapentin 800 mg 06/30/22 06:00 06/30/22 08:59 Gabapentin 400 Mg Capsule PO 800 mg QAM ULI Administration Heparin Sodium (Porcine) 5,000 unit 06/30/22 01:00 06/30/22 02:15 Heparin 5,000 Unit/Ml Inj 1 Ml SUBCUT 5,000 unit Q12H ULI Administration Insulin Glargine 30 unit 06/30/22 09:00 06/30/22 10:17 Insulin Glargine 100 Units/1 Ml SUBCUT 30 unit BID ULI Administration Insulin Human Lispro 0 unit 06/30/22 08:00 06/30/22 09:03 Insulin Lispro 100 Unit/1 Ml SUBCUT 10 unit WM&BEDTIME ULI Administration Protocol Isosorbide Mononitrate 30 mg 06/30/22 09:00 06/30/22 08:57 Isosorbide Mononitrate Er 30 Mg Tablet PO 30 mg DAILY ULI Administration Lisinopril 20 mg 06/30/22 09:00 06/30/22 08:58 Lisinopril 20 Mg Tablet PO 20 mg DAILY ULI Administration Ticagrelor 90 mg 06/30/22 00:55 06/30/22 08:57 Ticagrelor 90 Mg Tablet PO 90 mg BID ULI Administration PFSH Acute PFSH: Medical History Atherosclerosis of coronary artery Chronic kidney disease, stage 1 Diabetes 1.5, managed as type 2 Essential (primary) hypertension History of amputation of great toe Osteomyelitis, unspecified Peripheral vascular disease, unspecified Venous insufficiency Surgical History History of amputation of lesser toe of left foot Stented coronary artery Family History Father Cancer Stroke Mother Diabetes Denies family history of CAD (coronary artery disease) Clotting disorder Dementia Hyperlipidemia Psychiatric illness Chronic kidney disease (CKD) Suicide Anesthesia complication Bleeding disorder Family history of premature coronary artery disease Lung disease Hypertension Social History Smoking and tobacco status: former smoker Quit status (tobacco): has quit using tobacco Second hand smoke exposure: No Smoking risk assessment/counseling performed?: No Alcohol intake: never Desire information about alcohol rehabilitation?: No Counseling given: No Last alcohol use date: 07/24/18 Desire information about substance/drug rehabilitation?: No Counseling given: No Adopted: No Caregiver/support person: Yes Lives independently: Yes Household members: spouse Housing: House Marital status: Number of children: 6 Number of grandchildren: 11 Highest education level completed: Bachelor's Degree service: Yes Current occupational status: retired Pets and animals: Yes History of recent travel: No Leisure activites: fishing Current gender identity: Male Cindy/Evangelical: Temple Special cindy needs: No Agree to transfusion: Yes Financial difficulty paying for basics: Not Very Hard Vitals/I&O/Wt Last Vital Signs Temp 97.9 F 06/30/22 08:00 Pulse 106 H 06/30/22 08:00 Resp 17 06/30/22 08:00 BP 119/77 06/30/22 08:00 Pulse Ox 93 06/30/22 08:00 O2 Del Method 06/30/22 07:32 O2 Flow Rate 3 06/30/22 07:32 06/29/22 06/30/22 06/30/22 22:59 06:59 14:59 Intake Total 300 / 300 Output Total 200 / 200 200 / 200 Balance -200 / -200 300 / 100 -200 / -200 Weight last 48 hrs Weight 272 lb Physical Exam Narrative: GENERAL: The patient is alert and oriented times three. Not in any acute distress. Obese HEENT: No significant pallor, icterus or lymphadenopathy.Oral cavity: There are no mucous membrane lesions. NECK: Trachea appears to be central. No masses noted. No JVD or thyromegaly appreciated. RESPIRATORY: Chest is symmetrical. No intercostals muscle retraction or any accessory muscle activation. There is no chest wall tenderness. Breath sounds are heard bilaterally. Scattered coarse crackles bilaterally. Intensity of breath sounds are somewhat diminished in the bases. BREASTS: Deferred. HEART: The heart sounds are normal. No S3 or S4. No significant murmurs. No pericardial rub ABDOMEN: No vessel pulsations or distention. No tenderness. No organomegaly appreciated. Bowel sounds are normally heard. : Deferred. RECTAL: Deferred. LYMPHATIC: No lymphadenopathy noted in the neck. EXTREMITIES: Features of chronic venous stasis in both lower extremities with hyperpigmented skin. No significant edema. Peripheral pulses are weak bilaterally. MUSCULOSKELETAL: No acute joint deformities or swelling SKIN: There are no significant rashes or ecchymosis NEUROPSYCHIATRIC: The patient is alert and oriented x3. Appears to be in a good mood. No tremors or rigidity noted. Data 06/29/22 20:14 06/29/22 20:14 Other Labs: Laboratory Last Values WBC 9.4 10^3/uL (4.0-10.0) 06/29/22 20:14 RBC 5.24 10^6/uL (4.1-5.3) 06/29/22 20:14 Hgb 15.7 g/dL (11.7-16.6) 06/29/22 20:14 Hct 47.7 % (42.0-52.0) 06/29/22 20:14 MCV 91.0 fl (80-94) 06/29/22 20:14 MCH 30.0 pg (28.0-34.0) 06/29/22 20:14 MCHC 32.9 g/dL (30.0-36.0) 06/29/22 20:14 RDW 12.9 % (12.1-15.1) 06/29/22 20:14 Plt Count 220 10^3/cmm (130-400) 06/29/22 20:14 MPV 11.4 fL (7.4-10.4) H 06/29/22 20:14 Neut % (Auto) 75.8 % 06/29/22 20:14 Lymph % (Auto) 11.8 % 06/29/22 20:14 Eaton % (Auto) 9.9 % 06/29/22 20:14 Eos % (Auto) 1.6 % 06/29/22 20:14 Baso % (Auto) 0.4 % 06/29/22 20:14 Neut # (Auto) 7.10 10^3/uL (1.8-7.7) 06/29/22 20:14 Lymph # (Auto) 1.1 10^3/uL (0.8-4.8) 06/29/22 20:14 Eaton # (Auto) 0.9 10^3/uL (0.2-0.9) 06/29/22 20:14 Eos # (Auto) 0.2 10^3/uL (0.0-0.8) 06/29/22 20:14 Baso # (Auto) 0.0 10^3/uL (0.0-0.1) 06/29/22 20:14 Nucleated RBC % (auto) 0 % 06/29/22 20:14 Nucleated RBCs # 0.0 /100WBC 06/29/22 20:14 D-Dimer 0.80 ug/mIFEU (0-0.59) H 06/29/22 20:14 Specimen Type Arterial 06/29/22 20:50 Sample Site Radial, right 06/29/22 20:50 ABG pH 7.40 (7.35-7.45) 06/29/22 20:50 ABG pCO2 40.6 mmHg (35-45) 06/29/22 20:50 ABG pO2 73.4 mmHg (80.0-100.0) L 06/29/22 20:50 ABG HCO3 25.0 mmol/L (22-26) 06/29/22 20:50 ABG Base Excess 0.1 mmol/L (-2.0-2.0) 06/29/22 20:50 Axel Test Pos 06/29/22 20:50 Hematocrit 48.2 % (42-52) 06/29/22 20:50 Hgb O2 Saturation 94.0 % (95-100) L 06/29/22 20:50 Carboxyhemoglobin 1.3 %THgb (0.4-20.1) 06/29/22 20:50 Methemoglobin 0.3 % (0.4-1.5) L 06/29/22 20:50 Total Hemoglobin 15.7 g/dL (14-18) 06/29/22 20:50 O2 Delivery Device Nc 06/29/22 20:50 O2 Liters/Min 5.0 % 06/29/22 20:50 Rehab Trainer ID Hinja 06/29/22 20:50 Sodium 135 mmol/L (136-145) L 06/29/22 20:14 Potassium 4.1 mmol/L (3.5-5.1) 06/29/22 20:14 Chloride 99 mmol/L (98-107) 06/29/22 20:14 Carbon Dioxide 24 mmol/L (22-29) 06/29/22 20:14 Anion Gap 16.1 (5-19) 06/29/22 20:14 BUN 24 mg/dL (8-23) H 06/29/22 20:14 Creatinine 1.0 mg/dL (0.7-1.2) 06/29/22 20:14 GFR Calculation Not Reportable 06/29/22 20:14 Glucose 246 mg/dL (65-115) H 06/29/22 20:14 POC Glucose 264 mg/dL (70-110) H 06/30/22 06:24 Estimat Average Glucose 177 06/30/22 02:28 Hemoglobin A1c 7.8 % (4.0-6.0) H 06/30/22 02:28 Calculated Osmolality 292 mOsm/kg (285-295) 06/29/22 20:14 Lactic Acid 2.1 mmol/L (0.5-2.2) 06/30/22 02:28 Lactic Acid (Sepsis) 1.7 mmol/L (0.5-2.2) 06/30/22 05:41 Calcium 8.6 mg/dL (8.5-10.5) 06/29/22 20:14 Total Bilirubin 0.6 mg/dL (0.15-1.2) 06/29/22 20:14 AST 50 U/L (0-40) H 06/29/22 20:14 ALT 34 U/L (0-41) 06/29/22 20:14 Alkaline Phosphatase 112 U/L (40-130) 06/29/22 20:14 Troponin T Baseline 52 ng/L (0-15) H 06/29/22 20:14 Troponin T 120 Minute 76.26 ng/L (0-15) H 06/29/22 21:59 Delta Troponin T 24.26 ABS# (0-10) H* 06/29/22 21:59 Troponin T Hi Sens 6Hr 137.8 ng/L (0-15) H 06/30/22 02:28 Troponin T Hi Sens 6Hr Delta 85.8 ng/L (0-12) H* 06/30/22 02:28 NT-Pro-B Natriuret Pep 2523 pg/mL (0-125) H 06/30/22 02:28 Total Protein 7.7 g/dL (6.6-8.7) 06/29/22 20:14 Albumin 3.9 g/dL (3.5-5.2) 06/29/22 20:14 Globulin 3.8 g/dL (1.3-4.6) 06/29/22 20:14 Procalcitonin 0.41 ng/mL (0-0.5) 06/30/22 02:28 Micro: Microbiology 06/30/22 04:50 Legionella Urinary Antigen - Final Urine,Voided Bacterial Antigens - Final 06/29/22 20:35 Blood Culture - Preliminary Blood SPECIMEN COLLECTED 06/29/22 20:14 Blood Culture - Preliminary Blood SPECIMEN COLLECTED CT Chest: Radiologist's impression: There is no evidence for a pulmonary artery embolus. ? There is bilateral lower lobe lung consolidation consistent with atelectasis and/or pneumonia. ? There is bilateral interstitial lung disease and also ground-glass lung opacification suggestive of pulmonary edema. ? There are small pleural effusions. EKG 1: My Interpretation: Sinus tachycardia with a first-degree AV block. Possible left atrial enlargement. Nonspecific IVCD. Possible old inferior wall myocardial infarction. Extensive anteroseptal and anterolateral wall myocardial infarction. A&P Assessment and plan (1) Elevated troponin: The elevated troponin T, could be related to type II myocardial infarction. In view of the underlying high-grade lesions in the right coronary artery and intermedius artery, possibility of him having had a non-ST elevation myocardial infarction cannot be excluded. The EKG is nonspecific. No acute ST-T changes were noted. (2) Atherosclerosis of coronary artery of [place] heart without angina pectoris: Patient has history of severe three-vessel coronary disease. Status post PCI of the left main and left and descending artery lesions by placing overlapping stents in July 2021. Currently has no specific symptoms. (3) Congestive heart failure: Patient has elevated BNP suggesting an element of decompensated heart failure. This may be carefully treated with IV diuretics. Hemodynamically he seems to be stable. (4) Essential (primary) hypertension: The blood pressure is under control. (5) Diabetes 1.5, managed as type 2: Aggressive management of the diabetes would be appropriate. (6) Peripheral vascular disease, unspecified: Fairly stable with no significant symptoms. (7) Pneumonia: Patient is on antibiotics. Oxygen status seems to be improving. Management as per the primary. Plan Patient may be kept on the current medications. IV Lasix on a as needed basis. Would be appropriate to do a Myocardial perfusion imaging to evaluate for the functional significance of the RCA and the intermedius artery lesion and also to evaluate the ischemic burden. If the patient is going to be in the hospital, we may do it on Saturday. Thank you for the opportunity to evaluate this patient and make these recommendations Consult Attestations Medical Necessity Statement: Patient requires continued hospital stay for close monitoring and further management Coding Level of Care Code Acute Computational Physicist for g Fwd Diagnoses Elevated troponin R77.8 Atherosclerosis of coronary artery of [place] heart without angina pectoris I25.10 Congestive heart failure I50.9 Essential (primary) hypertension I10 Diabetes 1.5, managed as type 2 E13.9 Peripheral vascular disease, unspecified I73.9 Pneumonia J18.9
[2022-06-30 11:52] LABS: Glucose Point of Care 350 mg/dL (70-110)
[2022-06-30 17:08] LABS: Glucose Point of Care 259 mg/dL (70-110)
[2022-06-30] MEDS: gabapentin 400 mg Capsule 1600 MG PO (17:27)
--- NOTE | 2022-06-30 20:05 | P.PN_ITS ---
Subjective Subjective: He states overall he is doing okay. He has been trying to optimize his blood glucose control recently. His insulin sliding scale has been increased to high intensity. She denies any chest pain or pressure. He is currently breathing slightly better. He does state that his left ankle and foot sometimes hurts quite a bit especially walking upstairs due to severe prior injuries not amenable to any surgical intervention. Vitals/I&O/Wt Last Vital Signs Temp 98 F 06/30/22 15:58 Pulse 79 06/30/22 15:58 Resp 18 06/30/22 15:58 BP 145/77 06/30/22 15:58 Pulse Ox 94 06/30/22 15:58 O2 Del Method 06/30/22 15:31 O2 Flow Rate 2 06/30/22 15:31 06/30/22 06/30/22 06/30/22 06:59 14:59 22:59 Intake Total 300 / 300 Output Total 200 / 200 400 / 600 Balance 300 / 100 -200 / -200 -400 / -600 Weight last 48 hrs Weight 123.377 kg Physical Exam Narrative: Accompanied by his . Const: COMMON NORMALS: patient oriented x3 and alert GENERAL APPEARANCE: cooperative ORIENTATION/CONSCIOUSNESS: Yes awake HENMT: COMMON NORMALS: oropharynx normal Neck/C-Spine: COMMON NORMALS: no JVD Resp: COMMON NORMALS: normal respiratory effort AUSCULTATION: diminished lung sounds Cardio: COMMON NORMALS: no JVD, regular rhythm, S1 normal heart sound present, S2 normal heart sound present and No murmurs present (Cardio) RHYTHM: regular rhythm HEART SOUNDS: S1 normal heart sound present and S2 normal heart sound present GI: COMMON NORMALS: Normal to inspection, nondistended, normoactive bowel sounds present, Soft to palpation and non-tender PALPATION: Yes Soft to palpation Extremity: COMMON NORMALS: no joint enlargement and no pedal edema OTHER: Left ankle without deformity. No open wounds. Neuro: COMMON NORMALS: patient oriented x3 and moves all extremities SENSORIUM/ORIENTATION: Yes alert Skin: COMMON NORMALS: no rashes or lesions noted GENERAL SKIN EXAM: no rashes or lesions noted Data 06/29/22 20:14 06/29/22 20:14 Micro: Microbiology 06/30/22 05:24 Gram Stain - Final Sputum - Expectorated Sputum 06/30/22 04:50 Legionella Urinary Antigen - Final Urine,Voided Bacterial Antigens - Final 06/29/22 20:35 Blood Culture - Preliminary Blood SPECIMEN COLLECTED 06/29/22 20:14 Blood Culture - Preliminary Blood SPECIMEN COLLECTED A&P Assessment and plan (1) Pneumonia: Continue ceftriaxone, azithromycin. Follow-up sputum culture. Hypoxia showing gradual improvement. Continue to wean down oxygen c as tolerating. Not normally on supplemental oxygen. (2) Congestive heart failure: Continue Lasix IV. Monitor I&O. Add daily weights. (3) CAD (coronary artery disease): Significant elevation of troponin with positive delta. Underlying coronary disease previously recommended bypass surgery on angiogram back in July. Underwent stenting of LAD in August after STEMI. Currently chest pain-free. Appreciate cardiology consultation. Procedure stress test once available and condition improving with consideration whether he may require staged procedure for further revascularization. (4) Chronic kidney disease, stage 1: (5) Peripheral vascular disease, unspecified: (6) Diabetes 1.5, managed as type 2: (7) Essential (primary) hypertension: (8) Stented coronary artery: Plan #Multi focal pneumonia #Acute on chronic congestive heart failure, decompensated #Bilateral pleural effusions #Troponin elevation, NSTEMI most likely type II #History of CAD status post PCI times JANNETTE x2 #Hypertension #Hyperlipidemia #Oxygen dependency #Former smoker Full code DVT prophylaxis: Heparin SQ twice daily Diet: Cardiac consistent carbohydrate Attestations Medical Necessity Statement*: Continue admission for assessment of management of pneumonia, hypoxia, CHF exacerbation, further assessment of coronary disease and gentleman with severe underlying coronary disease, prior STEMI and stenting. Coding Level of Care Code Acute Procurement Professional Logistics for [facility] [place] Diagnoses Pneumonia J18.9 Congestive heart failure I50.9 CAD (coronary artery disease) I25.10 Chronic kidney disease, stage 1 N18.1 Peripheral vascular disease, unspecified I73.9 Diabetes 1.5, managed as type 2 E13.9 Essential (primary) hypertension I10 Stented coronary artery Z95.5
[2022-06-30 20:49] LABS: Glucose Point of Care 187 mg/dL (70-110)
[2022-06-30] MEDS: carvedilol 25 mg Tablet PO (21:10)
--- NOTE | 2022-06-30 22:21 | ECG_ITS ---
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 Measurements Intervals [place] Rate: 86 P: 29 GA: 164 QRS: 83 QRSD: 139 T: 76 QT: 428 QTc: 512 Interpretive Statements SINUS RHYTHM POSSIBLE LEFT ATRIAL ENLARGEMENT [-0.1mV P-WAVE IN V1/V2] INTRAVENTRICULAR CONDUCTION DELAY [130+ ms QRS DURATION] INFERIOR MYOCARDIAL INFARCTION , PROBABLY OLD [40+ ms Q WAVE AND/OR ST/T ABNORMALITY IN II/aVF] ANTEROLATERAL MYOCARDIAL INFARCTION , OF INDETERMINATE AGE [40+ ms Q WAVE IN I/aVL/V3-V6] Compared to ECG 06/30/2022 09:48:47 Intraventricular conduction delay now present First degree AV block no longer present Myocardial infarct finding still present Electronically Signed On 07-01-2022 20:18:52 ALLERGIST/IMMUNOLOGIST PHYSICIAN by Eleni Leong M.D. [id number]
[2022-06-30] MEDS: cefTRIAXone 1,000 MG in sodium chloride 0.9% (plus) 50 ML 100 MG IV (22:31)
[2022-06-30] MEDS: azithromycin 500 MG in sodium chloride 0.9% 250 ML 250 MG IV (23:03)
[2022-07-01] VITALS (13 sets, daily range): BP systolic 144–226; BP diastolic 80–106; PULSE 78–120; RESP 16–20; TEMP 36.6–37.6; O2SAT 92–96
[2022-07-01] MEDS: heparin 5,000 unit/mL INJ 1 mL 5000 UNIT SUBCUT ×2 (00:34→12:34)
[2022-07-01] MEDS: FUROsemide 10 mg/mL SDV 4mL 40 MG IVP (03:28)
[2022-07-01 03:59] LABS: Basophils % 0.2 %; Eosinophils # 0.1 10^3/uL (0.0-0.8); Eosinophils % 0.5 %; Hematocrit 43.9 % (42.0-52.0); Hemoglobin 14.3 g/dL (11.7-16.6); Lymphocytes # 0.8 10^3/uL (0.8-4.8); Lymphocytes % 8.4 %; Mean Corpuscular HGB Conc 32.6 g/dL (30.0-36.0); Mean Corpuscular Hemoglobin 29.6 pg (28.0-34.0); Mean Corpuscular Volume 90.9 fl (80-94); Mean Platelet Volume 11.5 fL (7.4-10.4); Neutrophils # 7.86 10^3/uL (1.8-7.7); Neutrophils % 80.5 %; Nucleated Red Blood Cells % 0 %; Platelet Count 223 10^3/cmm (130-400); Red Blood Count 4.83 10^6/uL (4.1-5.3); Red Cell Distribution Width 12.8 % (12.1-15.1); White Blood Count 9.8 10^3/uL (4.0-10.0)
[2022-07-01 04:22] LABS: Alanine Aminotransferase 23 U/L (0-41); Albumin Level 3.6 g/dL (3.5-5.2); Alkaline Phosphatase 90 U/L (40-130); Anion Gap 15.6 (5-19); Aspartate Amino Transferase 17 U/L (0-40); Blood Urea Nitrogen 28 mg/dL (8-23); Calcium 8.3 mg/dL (8.5-10.5); Carbon Dioxide 26 mmol/L (22-29); Chloride 98 mmol/L (98-107); Globulin 3.4 g/dL (1.3-4.6); Glucose 102 mg/dL (65-115); Magnesium 2.2 mg/dL (1.7-2.3); Osmolality Calculated 288 mOsm/kg (285-295); Potassium 3.6 mmol/L (3.5-5.1); Sodium 136 mmol/L (136-145); Total Bilirubin 0.6 mg/dL (0.15-1.2)
[2022-07-01] MEDS: carvedilol 25 mg Tablet 12.5 MG PO (05:37)
[2022-07-01] MEDS: gabapentin 400 mg Capsule 800 MG PO (05:37)
[2022-07-01 06:10] LABS: Glucose Point of Care 163 mg/dL (70-110)
[2022-07-01] MEDS: ipratropium-albuterol 3 mL Neb INHALATION ×4 (08:10→22:24)
[2022-07-01] MEDS: aspirin 81 mg EC Tablet PO (08:14)
[2022-07-01] MEDS: insulin lispro 100 unit/1 mL SUBCUT ×2 (08:14→12:34)
[2022-07-01] MEDS: isosorbide mononitrate ER 30 mg Tablet PO (08:14)
[2022-07-01] MEDS: lisinopril 20 mg Tablet PO ×2 (08:14→20:39)
[2022-07-01] MEDS: ticagrelor 90 mg Tablet PO ×2 (08:14→17:28)
[2022-07-01] MEDS: acetaminophen 325 mg Tablet 650 MG PO ×2 (08:19→20:48)
[2022-07-01] MEDS: insulin glargine 100 units/1 mL 30 UNIT SUBCUT ×2 (09:19→20:40)
--- NOTE | 2022-07-01 09:44 | PM.PN ---
Subjective Subjective: The patient is to have some cough. Shortness of breath is improving. No fever or chills. Vital signs are stable. No orthopnea. No other specific complaints. Medications: Medication Review Details: Current Medications Acetaminophen (Acetaminophen 325 Mg Tablet) 650 mg PO Q6H PRN PRN Reason: Mild/Mod Pain Or Temp >/= 101 Last Admin: 07/01/22 08:19 Dose: 650 mg Albuterol/Ipratropium (Ipratropium-Albuterol 3 Ml Neb) 3 ml INHALATION QID.RESPIRATORY [facility] Last Admin: 07/01/22 08:10 Dose: 3 ml Aspirin (Aspirin 81 Mg Ec Tablet) 81 mg PO DAILY [facility] Last Admin: 07/01/22 08:14 Dose: 81 mg Carvedilol (Carvedilol 25 Mg Tablet) 12.5 mg PO QAM [facility] Last Admin: 07/01/22 05:37 Dose: 12.5 mg Carvedilol (Carvedilol 25 Mg Tablet) 25 mg PO BEDTIME [facility] Last Admin: 06/30/22 21:10 Dose: 25 mg Dextrose (Dextrose 50% Syringe 50 Ml) 25 ml IVP ONCE PRN; Protocol PRN Reason: hypoglycemia protocol Dextrose (Dextrose 50% Syringe 50 Ml) 50 ml IVP PRN PRN; Protocol PRN Reason: hypoglycemia protocol Furosemide (Furosemide 10 Mg/Ml Sdv 4ml) 40 mg IVP Q24H [facility] Last Admin: 07/01/22 03:28 Dose: 40 mg Gabapentin (Gabapentin 400 Mg Capsule) 800 mg PO QAM [facility] Last Admin: 07/01/22 05:37 Dose: 800 mg Gabapentin (Gabapentin 400 Mg Capsule) 1,600 mg PO QPM [facility] Last Admin: 06/30/22 17:27 Dose: 1,600 mg Glucagon (Glucagon 1 Mg/Ml Inj 1 Ml) 1 mg IM ONCE PRN; Protocol PRN Reason: Adult Acute Hypoglycemia Prot. Heparin Sodium (Porcine) (Heparin 5,000 Unit/Ml Inj 1 Ml) 5,000 unit SUBCUT Q12H [facility] Last Admin: 07/01/22 00:34 Dose: 5,000 unit Dextrose (D5w) 500 mls @ 100 mls/hr IV ONCE PRN; Protocol PRN Reason: Adult Acute Hypoglycemia Prot Ceftriaxone Sodium 1,000 mg/ (Sodium Chloride) 50 mls @ 100 mls/hr IV Q24H [facility]; Protocol Last Infusion: 06/30/22 23:04 Dose: Infused Azithromycin 500 mg/ Sodium (Chloride) 250 mls @ 250 mls/hr IV Q24H [facility]; Protocol Last Infusion: 07/01/22 00:13 Dose: Infused Insulin Glargine (Insulin Glargine 100 Units/1 Ml) 30 unit SUBCUT BID [facility] Last Admin: 07/01/22 09:19 Dose: 30 unit Insulin Human Lispro (Insulin Lispro 100 Unit/1 Ml) 0 unit SUBCUT WM&BEDTIME [facility]; Protocol Last Admin: 07/01/22 08:14 Dose: 6 unit Isosorbide Mononitrate (Isosorbide Mononitrate Er 30 Mg Tablet) 30 mg PO DAILY [facility] Last Admin: 07/01/22 08:14 Dose: 30 mg Lisinopril (Lisinopril 20 Mg Tablet) 20 mg PO DAILY [facility] Last Admin: 07/01/22 08:14 Dose: 20 mg Ondansetron HCl (Ondansetron 2 Mg/Ml Sdv 2 Ml) 4 mg IVP Q8H PRN PRN Reason: vomiting, or N/V if npo Ticagrelor (Ticagrelor 90 Mg Tablet) 90 mg PO BID [facility] Last Admin: 07/01/22 08:14 Dose: 90 mg Vitals/I&O/Wt Last Vital Signs Temp 98.8 F 07/01/22 08:00 Pulse 88 07/01/22 08:12 Resp 16 07/01/22 08:12 BP 172/95 07/01/22 08:00 Pulse Ox 95 07/01/22 08:12 O2 Del Method 07/01/22 08:12 O2 Flow Rate 2 07/01/22 08:12 06/30/22 07/01/22 07/01/22 22:59 06:59 14:59 Intake Total 600 / 600 Output Total 400 / 600 750 / 1350 Balance -400 / -600 -150 / -750 Weight last 48 hrs Weight 274 lb Weight 272 lb Physical Exam Narrative: GENERAL: The patient is alert and oriented times three. Not in any acute distress. HEENT: No significant pallor, icterus or lymphadenopathy.Oral cavity: There are no mucous membrane lesions. NECK: Trachea appears to be central. No masses noted. No JVD or thyromegaly appreciated. RESPIRATORY: Chest is symmetrical. No intercostals muscle retraction or any accessory muscle activation. There is no chest wall tenderness. Breath sounds are heard bilaterally. Scattered coarse crackles and occasional expiratory wheezing BREASTS: Deferred. HEART: The heart sounds are normal. No S3 or S4. No significant murmurs. No pericardial rub ABDOMEN: No vessel pulsations or distention. No tenderness. No organomegaly appreciated. Bowel sounds are normally heard. : Deferred. RECTAL: Deferred. LYMPHATIC: No lymphadenopathy noted in the neck. EXTREMITIES: No edema or cyanosis. No clubbing. MUSCULOSKELETAL: No acute joint deformities or swelling SKIN: There are no significant rashes or ecchymosis NEUROPSYCHIATRIC: The patient is alert and oriented x3. Appears to be in a good mood. No tremors or rigidity noted. Data 07/01/22 03:10 07/01/22 03:10 Other Labs: Laboratory Last Values WBC 9.8 10^3/uL (4.0-10.0) 07/01/22 03:10 RBC 4.83 10^6/uL (4.1-5.3) 07/01/22 03:10 Hgb 14.3 g/dL (11.7-16.6) 07/01/22 03:10 Hct 43.9 % (42.0-52.0) 07/01/22 03:10 MCV 90.9 fl (80-94) 07/01/22 03:10 MCH 29.6 pg (28.0-34.0) 07/01/22 03:10 MCHC 32.6 g/dL (30.0-36.0) 07/01/22 03:10 RDW 12.8 % (12.1-15.1) 07/01/22 03:10 Plt Count 223 10^3/cmm (130-400) 07/01/22 03:10 MPV 11.5 fL (7.4-10.4) H 07/01/22 03:10 Neut % (Auto) 80.5 % 07/01/22 03:10 Lymph % (Auto) 8.4 % 07/01/22 03:10 [place] % (Auto) 10.0 % 07/01/22 03:10 Eos % (Auto) 0.5 % 07/01/22 03:10 Baso % (Auto) 0.2 % 07/01/22 03:10 Neut # (Auto) 7.86 10^3/uL (1.8-7.7) H 07/01/22 03:10 Lymph # (Auto) 0.8 10^3/uL (0.8-4.8) 07/01/22 03:10 [place] # (Auto) 1.0 10^3/uL (0.2-0.9) H 07/01/22 03:10 Eos # (Auto) 0.1 10^3/uL (0.0-0.8) 07/01/22 03:10 Baso # (Auto) 0.0 10^3/uL (0.0-0.1) 07/01/22 03:10 Nucleated RBC % (auto) 0 % 07/01/22 03:10 Nucleated RBCs # 0.0 /100WBC 07/01/22 03:10 D-Dimer 0.80 ug/mIFEU (0-0.59) H 06/29/22 20:14 Specimen Type Arterial 06/29/22 20:50 Sample Site Radial, right 06/29/22 20:50 ABG pH 7.40 (7.35-7.45) 06/29/22 20:50 ABG pCO2 40.6 mmHg (35-45) 06/29/22 20:50 ABG pO2 73.4 mmHg (80.0-100.0) L 06/29/22 20:50 ABG HCO3 25.0 mmol/L (22-26) 06/29/22 20:50 ABG Base Excess 0.1 mmol/L (-2.0-2.0) 06/29/22 20:50 Axel Test Pos 06/29/22 20:50 Hematocrit 48.2 % (42-52) 06/29/22 20:50 Hgb O2 Saturation 94.0 % (95-100) L 06/29/22 20:50 Carboxyhemoglobin 1.3 %THgb (0.4-20.1) 06/29/22 20:50 Methemoglobin 0.3 % (0.4-1.5) L 06/29/22 20:50 Total Hemoglobin 15.7 g/dL (14-18) 06/29/22 20:50 O2 Delivery Device Nc 06/29/22 20:50 O2 Liters/Min 5.0 % 06/29/22 20:50 Orthopaedic Physician Assistant ID Hector 06/29/22 20:50 Sodium 136 mmol/L (136-145) 07/01/22 03:10 Potassium 3.6 mmol/L (3.5-5.1) 07/01/22 03:10 Chloride 98 mmol/L (98-107) 07/01/22 03:10 Carbon Dioxide 26 mmol/L (22-29) 07/01/22 03:10 Anion Gap 15.6 (5-19) 07/01/22 03:10 BUN 28 mg/dL (8-23) H 07/01/22 03:10 Creatinine 1.0 mg/dL (0.7-1.2) 07/01/22 03:10 GFR Calculation Not Reportable 07/01/22 03:10 Glucose 102 mg/dL (65-115) 07/01/22 03:10 POC Glucose 163 mg/dL (70-110) H 07/01/22 06:03 Estimat Average Glucose 177 06/30/22 02:28 Hemoglobin A1c 7.8 % (4.0-6.0) H 06/30/22 02:28 Calculated Osmolality 288 mOsm/kg (285-295) 07/01/22 03:10 Lactic Acid 2.1 mmol/L (0.5-2.2) 06/30/22 02:28 Lactic Acid (Sepsis) 1.7 mmol/L (0.5-2.2) 06/30/22 05:41 Calcium 8.3 mg/dL (8.5-10.5) L 07/01/22 03:10 Magnesium 2.2 mg/dL (1.7-2.3) 07/01/22 03:10 Total Bilirubin 0.6 mg/dL (0.15-1.2) 07/01/22 03:10 AST 17 U/L (0-40) 07/01/22 03:10 ALT 23 U/L (0-41) 07/01/22 03:10 Alkaline Phosphatase 90 U/L (40-130) 07/01/22 03:10 Troponin T Baseline 52 ng/L (0-15) H 06/29/22 20:14 Troponin T 120 Minute 76.26 ng/L (0-15) H 06/29/22 21:59 Delta Troponin T 24.26 ABS# (0-10) H* 06/29/22 21:59 Troponin T Hi Sens 6Hr 137.8 ng/L (0-15) H 06/30/22 02:28 Troponin T Hi Sens 6Hr Delta 85.8 ng/L (0-12) H* 06/30/22 02:28 NT-Pro-B Natriuret Pep 2523 pg/mL (0-125) H 06/30/22 02:28 Total Protein 7.0 g/dL (6.6-8.7) 07/01/22 03:10 Albumin 3.6 g/dL (3.5-5.2) 07/01/22 03:10 Globulin 3.4 g/dL (1.3-4.6) 07/01/22 03:10 Procalcitonin 0.41 ng/mL (0-0.5) 06/30/22 02:28 Micro: Microbiology 06/29/22 20:35 Blood Culture - Preliminary Blood NEGATIVE TO DATE 06/29/22 20:14 Blood Culture - Preliminary Blood NEGATIVE TO DATE 06/30/22 05:24 Gram Stain - Final Sputum - Expectorated Sputum 06/30/22 04:50 Legionella Urinary Antigen - Final Urine,Voided Bacterial Antigens - Final A&P Assessment and plan (1) Elevated troponin: Elevated troponin T, most likely is from non-ST relation myocardial infarction. Apparently the patient has no chest pain. Even before the previous stenting of the left main, he did not have any chest pain. He was having recurrent pulmonary edema. I may do a repeat troponin T to see the trend (2) Atherosclerosis of coronary artery of [place] heart without angina pectoris: Patient has history of severe three-vessel coronary disease. Status post PCI of the left main and left and descending artery lesions by placing overlapping stents in July 2021. Currently has no specific symptoms. He was supposed to get stenting of the RCA and intermedius artery lesions. Because of the current non-ST relation myocardial infarction the may consider repeat angiogram and possible intervention. (3) Congestive heart failure: Patient has elevated BNP suggesting an element of decompensated heart failure. This may be carefully treated with IV diuretics. Hemodynamically he seems to be stable. (4) Essential (primary) hypertension: Blood pressure is currently a stage II. We may optimize the antihypertensive medications. (5) Diabetes 1.5, managed as type 2: Aggressive management of the diabetes would be appropriate. (6) Peripheral vascular disease, unspecified: Fairly stable with no significant symptoms. (7) Pneumonia: Patient is on antibiotics. Oxygen status seems to be improving. Management as per the primary. Plan Patient may be kept on the current medications. IV Lasix on a as needed basis. Repeat troponin T today. We may consider doing a repeat angiogram and possible intervention of the intermedius and right coronary artery, once the pneumonia is properly treated. I may discontinue the subcu heparin and start him on therapeutic dose of Lovenox. We will add Jardiance 10 mg p.o. daily to the current regimen Continue other treatment measures. Attestations Medical Necessity Statement*: Patient requires continued hospital stay for close monitoring and further management Coding Level of Care Code Acute Pick Up Attendant for g Fwd History Expanded Problem Focused Exam Expanded Problem Focused Medical Decision Making Moderate Complexity Diagnoses Elevated troponin R77.8 Atherosclerosis of coronary artery of [place] heart without angina pectoris I25.10 Congestive heart failure I50.9 Essential (primary) hypertension I10 Diabetes 1.5, managed as type 2 E13.9 Peripheral vascular disease, unspecified I73.9 Pneumonia J18.9
[2022-07-01 12:49] LABS: Glucose Point of Care 220 mg/dL (70-110)
[2022-07-01] MEDS: gabapentin 400 mg Capsule 1600 MG PO (17:28)
--- NOTE | 2022-07-01 17:30 | PC.NURSE ---
Blood sugar checked with patients dexcom and is 107. Pt requesting to have 30u lantus administered with 2100 medications.
[2022-07-01] MEDS: enoxaparin 100 mg/mL Syringe SUBCUT (18:05)
[2022-07-01] MEDS: benzonatate 100 mg Capsule 200 MG PO (18:05)
[2022-07-01 18:51] LABS: Troponin T (5th) Once 100 ng/L (0-15)
[2022-07-01] MEDS: carvedilol 25 mg Tablet PO (20:06)
--- NOTE | 2022-07-01 20:32 | PM.PN ---
Subjective Subjective: Today he is doing better. He is coughing less. He denies chest pain. No nausea vomiting or diarrhea. Still on 2-1/2 L of oxygen. Medications: Medication Review Details: Current Medications Acetaminophen (Acetaminophen 325 Mg Tablet) 650 mg PO Q6H PRN PRN Reason: Mild/Mod Pain Or Temp >/= 101 Last Admin: 07/01/22 08:19 Dose: 650 mg Albuterol/Ipratropium (Ipratropium-Albuterol 3 Ml Neb) 3 ml INHALATION QID.RESPIRATORY [facility] Last Admin: 07/01/22 08:10 Dose: 3 ml Aspirin (Aspirin 81 Mg Ec Tablet) 81 mg PO DAILY [facility] Last Admin: 07/01/22 08:14 Dose: 81 mg Carvedilol (Carvedilol 25 Mg Tablet) 12.5 mg PO QAM [facility] Last Admin: 07/01/22 05:37 Dose: 12.5 mg Carvedilol (Carvedilol 25 Mg Tablet) 25 mg PO BEDTIME [facility] Last Admin: 06/30/22 21:10 Dose: 25 mg Dextrose (Dextrose 50% Syringe 50 Ml) 25 ml IVP ONCE PRN; Protocol PRN Reason: hypoglycemia protocol Dextrose (Dextrose 50% Syringe 50 Ml) 50 ml IVP PRN PRN; Protocol PRN Reason: hypoglycemia protocol Furosemide (Furosemide 10 Mg/Ml Sdv 4ml) 40 mg IVP Q24H [facility] Last Admin: 07/01/22 03:28 Dose: 40 mg Gabapentin (Gabapentin 400 Mg Capsule) 800 mg PO QAM [facility] Last Admin: 07/01/22 05:37 Dose: 800 mg Gabapentin (Gabapentin 400 Mg Capsule) 1,600 mg PO QPM [facility] Last Admin: 06/30/22 17:27 Dose: 1,600 mg Glucagon (Glucagon 1 Mg/Ml Inj 1 Ml) 1 mg IM ONCE PRN; Protocol PRN Reason: Adult Acute Hypoglycemia Prot. Heparin Sodium (Porcine) (Heparin 5,000 Unit/Ml Inj 1 Ml) 5,000 unit SUBCUT Q12H [facility] Last Admin: 07/01/22 00:34 Dose: 5,000 unit Dextrose (D5w) 500 mls @ 100 mls/hr IV ONCE PRN; Protocol PRN Reason: Adult Acute Hypoglycemia Prot Ceftriaxone Sodium 1,000 mg/ (Sodium Chloride) 50 mls @ 100 mls/hr IV Q24H [facility]; Protocol Last Infusion: 06/30/22 23:04 Dose: Infused Azithromycin 500 mg/ Sodium (Chloride) 250 mls @ 250 mls/hr IV Q24H [facility]; Protocol Last Infusion: 07/01/22 00:13 Dose: Infused Insulin Glargine (Insulin Glargine 100 Units/1 Ml) 30 unit SUBCUT BID [facility] Last Admin: 07/01/22 09:19 Dose: 30 unit Insulin Human Lispro (Insulin Lispro 100 Unit/1 Ml) 0 unit SUBCUT WM&BEDTIME [facility]; Protocol Last Admin: 07/01/22 08:14 Dose: 6 unit Isosorbide Mononitrate (Isosorbide Mononitrate Er 30 Mg Tablet) 30 mg PO DAILY [facility] Last Admin: 07/01/22 08:14 Dose: 30 mg Lisinopril (Lisinopril 20 Mg Tablet) 20 mg PO DAILY [facility] Last Admin: 07/01/22 08:14 Dose: 20 mg Ondansetron HCl (Ondansetron 2 Mg/Ml Sdv 2 Ml) 4 mg IVP Q8H PRN PRN Reason: vomiting, or N/V if npo Ticagrelor (Ticagrelor 90 Mg Tablet) 90 mg PO BID [facility] Last Admin: 07/01/22 08:14 Dose: 90 mg Vitals/I&O/Wt Last Vital Signs Temp 99.7 F H 07/01/22 19:39 Pulse 114 H 07/01/22 19:39 Resp 20 H 07/01/22 19:39 BP 226/106 07/01/22 19:39 Pulse Ox 93 07/01/22 19:39 O2 Del Method 07/01/22 19:39 O2 Flow Rate 2 07/01/22 15:20 07/01/22 07/01/22 07/01/22 06:59 14:59 22:59 Intake Total 600 / 600 240 / 240 Output Total 750 / 1350 Balance -150 / -750 240 / 240 Weight last 48 hrs Weight 124.284 kg Physical Exam Narrative: Accompanied by his . Const: COMMON NORMALS: patient oriented x3 and alert GENERAL APPEARANCE: cooperative ORIENTATION/CONSCIOUSNESS: Yes awake HENMT: COMMON NORMALS: oropharynx normal Neck/C-Spine: COMMON NORMALS: no JVD Resp: COMMON NORMALS: normal respiratory effort AUSCULTATION: diminished lung sounds Cardio: COMMON NORMALS: no JVD, regular rhythm, S1 normal heart sound present, S2 normal heart sound present and No murmurs present (Cardio) RHYTHM: regular rhythm HEART SOUNDS: S1 normal heart sound present and S2 normal heart sound present GI: COMMON NORMALS: Normal to inspection, nondistended, normoactive bowel sounds present, Soft to palpation and non-tender PALPATION: Yes Soft to palpation Extremity: COMMON NORMALS: no joint enlargement and no pedal edema OTHER: Left ankle without deformity. No open wounds. Neuro: COMMON NORMALS: patient oriented x3 and moves all extremities SENSORIUM/ORIENTATION: Yes alert Skin: COMMON NORMALS: no rashes or lesions noted GENERAL SKIN EXAM: no rashes or lesions noted Data 07/01/22 03:10 07/01/22 03:10 Micro: Microbiology 06/30/22 05:24 Gram Stain - Final Sputum - Expectorated Sputum Sputum Culture - Preliminary 06/29/22 20:35 Blood Culture - Preliminary Blood NEGATIVE TO DATE 06/29/22 20:14 Blood Culture - Preliminary Blood NEGATIVE TO DATE A&P Assessment and plan (1) Pneumonia: Still on 2 half liters of oxygen. Overall improving. Sputum culture with few gram-positive cocci, few gram-negative rods. Continue ceftriaxone, azithromycin. Follow-up sputum culture. As per discussion with cardiology would benefit from additional assessment with coronary angiography once respiratory condition doing better after a day or 2. Hypoxia showing gradual improvement. Continue to wean down oxygen c as tolerating. His evening appears to be doing weaning down to room air. Not normally on supplemental oxygen. (2) Congestive heart failure: Continue Lasix IV. Monitor I&O. Add daily weights. (3) CAD (coronary artery disease): As per discussion with cardiology with rising troponin trend on presentation, underlying coronary disease, would benefit from further assessment by coronary angiography once respiratory status is further improving. Significant elevation of troponin with positive delta. Underlying coronary disease previously recommended bypass surgery on angiogram back in July. Underwent stenting of LAD in August after STEMI. Currently chest pain-free. (4) Chronic kidney disease, stage 1: (5) Peripheral vascular disease, unspecified: (6) Diabetes 1.5, managed as type 2: (7) Essential (primary) hypertension: (8) Stented coronary artery: Plan #Multi focal pneumonia #Acute on chronic congestive heart failure, decompensated #Bilateral pleural effusions #Troponin elevation, NSTEMI most likely type II #History of CAD status post PCI times JANNETTE x2 #Hypertension #Hyperlipidemia #Oxygen dependency #Former smoker Full code DVT prophylaxis: Heparin SQ twice daily Diet: Cardiac consistent carbohydrate Attestations Medical Necessity Statement*: Continue admission for assessment management of pneumonia, hypoxia, acute CHF, with underlying severe CAD needing further cardiac evaluation. Coding Level of Care Code Acute Service Desk Director for [facility] Fwd Diagnoses Pneumonia J18.9 Congestive heart failure I50.9 CAD (coronary artery disease) I25.10 Chronic kidney disease, stage 1 N18.1 Peripheral vascular disease, unspecified I73.9 Diabetes 1.5, managed as type 2 E13.9 Essential (primary) hypertension I10 Stented coronary artery Z95.5
[2022-07-01] MEDS: hyDRALAzine 20 mg/mL INJ 1 mL 10 MG IVP (20:39)
[2022-07-01 20:50] LABS: Glucose Point of Care 120 mg/dL (70-110)
--- NOTE | 2022-07-01 21:16 | PC.NURSE ---
late entry: 2029. patient hypertensive 224/123 in right arm, 230/115 in left,manual 226/108. Dr. Alejo notified, new orders recieved, hydralazine 10 mg ivp/lisinopril po 20mg now. Lisinopril 20mg po bid starting tomorrow.
[2022-07-01] MEDS: cefTRIAXone 1,000 MG in sodium chloride 0.9% (plus) 50 ML 100 MG IV (22:34)
[2022-07-01] MEDS: azithromycin 500 MG in sodium chloride 0.9% 250 ML 250 MG IV (23:37)
[2022-07-02] VITALS (14 sets, daily range): BP systolic 127–196; BP diastolic 68–104; PULSE 80–99; RESP 16–20; TEMP 36.8–37.6; O2SAT 92–98
[2022-07-02] MEDS: FUROsemide 10 mg/mL SDV 4mL 40 MG IVP (03:30)
[2022-07-02] MEDS: benzonatate 100 mg Capsule 200 MG PO ×2 (03:38→15:49)
[2022-07-02 05:24] LABS: Basophils % 0.3 %; Eosinophils % 0.1 %; Hemoglobin 14.8 g/dL (11.7-16.6); Lymphocytes # 0.9 10^3/uL (0.8-4.8); Lymphocytes % 12.4 %; Mean Corpuscular HGB Conc 32.9 g/dL (30.0-36.0); Mean Corpuscular Hemoglobin 29.9 pg (28.0-34.0); Mean Corpuscular Volume 90.9 fl (80-94); Mean Platelet Volume 11.2 fL (7.4-10.4); Monocytes # 0.9 10^3/uL (0.2-0.9); Monocytes % 12.6 %; Neutrophils # 5.19 10^3/uL (1.8-7.7); Neutrophils % 74.3 %; Nucleated Red Blood Cells % 0 %; Platelet Count 216 10^3/cmm (130-400); Red Blood Count 4.95 10^6/uL (4.1-5.3); Red Cell Distribution Width 12.8 % (12.1-15.1)
[2022-07-02] MEDS: carvedilol 25 mg Tablet 12.5 MG PO (05:35)
[2022-07-02] MEDS: gabapentin 400 mg Capsule 800 MG PO (05:36)
[2022-07-02] MEDS: enoxaparin 100 mg/mL Syringe SUBCUT ×2 (05:36→17:43)
[2022-07-02 05:59] LABS: Anion Gap 15.3 (5-19); Blood Urea Nitrogen 20 mg/dL (8-23); Calcium 8.5 mg/dL (8.5-10.5); Carbon Dioxide 29 mmol/L (22-29); Chloride 95 mmol/L (98-107); Glucose 119 mg/dL (65-115); Osmolality Calculated 286 mOsm/kg (285-295); Potassium 3.3 mmol/L (3.5-5.1); Sodium 136 mmol/L (136-145)
[2022-07-02 06:46] LABS: Glucose Point of Care 107 mg/dL (70-110)
[2022-07-02] MEDS: isosorbide mononitrate ER 30 mg Tablet PO ×2 (07:48→09:44)
[2022-07-02] MEDS: ticagrelor 90 mg Tablet PO ×2 (07:48→17:43)
[2022-07-02] MEDS: aspirin 81 mg EC Tablet PO (07:48)
[2022-07-02] MEDS: lisinopril 20 mg Tablet PO ×2 (07:48→17:43)
[2022-07-02] MEDS: ipratropium-albuterol 3 mL Neb INHALATION ×4 (08:00→19:52)
[2022-07-02 08:22] LABS: Influenza A by IFA negative (Negative); Influenza B by IFA negative (Negative)
--- NOTE | 2022-07-02 09:01 | P.PN_ITS ---
Subjective Subjective: Patient is still short of breath. He is diuresing well. No chest pain. Vitals/I&O/Wt Last Vital Signs Temp 99.2 F 07/02/22 07:54 Pulse 99 07/02/22 08:06 Resp 20 H 07/02/22 07:54 BP 190/104 07/02/22 07:54 Pulse Ox 98 07/02/22 08:06 O2 Del Method 07/02/22 08:01 O2 Flow Rate 2 07/02/22 08:01 07/01/22 07/02/22 07/02/22 22:59 06:59 14:59 Intake Total 60 / 300 Output Total 1300 / 1300 600 / 600 Balance -1240 / -1000 -600 / -600 Weight last 48 hrs Weight 274 lb Physical Exam Narrative: GENERAL: Patient is alert, awake and oriented x3. [] NECK: No jugular vein distension. [] HEENT: No cyanosis. No icterus. No pallor. [] HEART: Regular S1 and S2. No murmur, rub or gallop. [] LUNGS: Diminished sounds bilaterally. CENTRAL NERVOUS SYSTEM: Grossly nonfocal. [] EXTREMITIES: Lower extremities with no edema Data 07/02/22 04:38 07/02/22 04:38 Micro: Microbiology 06/30/22 05:24 Gram Stain - Final Sputum - Expectorated Sputum Sputum Culture - Preliminary A&P Assessment and plan (1) Elevated troponin: Troponins have trended up significantly. We will proceed with coronary angiogram with possible PCI once patient is euvolemic and able to lay down flat. Continue diuretics. Continue dual antiplatelet therapy. Continue therapeutic dose of Lovenox. (2) Atherosclerosis of coronary artery of [place] heart without angina pectoris: Patient had residual ramus artery stenosis. Also had a PROSTHODONTIST/EDUCATOR of distal RCA with collateral blood supply. We will proceed with coronary angiogram with possible intervention once he is stable from volume standpoint. (3) Congestive heart failure: Continue IV diuretics. He is still volume overloaded Qualifiers: Heart failure chronicity: acute on chronic Heart failure type: combined systolic and diastolic Qualified Code(s): I50.43 - Acute on chronic combined systolic (congestive) and diastolic (congestive) heart failure (4) Essential (primary) hypertension: (5) Diabetes 1.5, managed as type 2: Aggressive management of the diabetes would be appropriate. (6) Peripheral vascular disease, unspecified: Stable (7) Pneumonia: Antibiotic therapy per primary team. Plan Continue IV diuresis. Continue NSTEMI treatment. We will plan on coronary angiogram once he is euvolemic. N.p.o. past midnight tonight. Thank you for involving us with care of this patient. We will continue to follow. Please call with questions. Attestations Medical Necessity Statement*: Care expected to cross 2 midnights. Coding Level of Care Code Acute Sub Assembly Team Worker for g Fwd Diagnoses Elevated troponin R77.8 Atherosclerosis of coronary artery of [place] heart without angina pectoris I25.10 Congestive heart failure I50.43 Heart failure chronicity: acute on chronic Heart failure type: combined systolic and diastolic Essential (primary) hypertension I10 Diabetes 1.5, managed as type 2 E13.9 Peripheral vascular disease, unspecified I73.9 Pneumonia J18.9
[2022-07-02] MEDS: FUROsemide 10 mg/mL SDV 10mL 60 MG IVP (09:44)
[2022-07-02] MEDS: insulin glargine 100 units/1 mL 30 UNIT SUBCUT ×2 (09:44→20:43)
[2022-07-02] MEDS: hyDRALAzine 10 mg Tablet PO ×3 (09:44→20:39)
--- NOTE | 2022-07-02 09:51 | P.PN_ITS ---
Subjective Subjective: Hospital course, labs appreciated. Good morning examination patient sitting up in recliner. He is feeling better than when he came in. Breathing is better as well. Blood pressure seems to be elevated requiring extra IV hydralazine overnight. Currently on 2 L nasal cannula. Denies any chest pain. Vitals/I&O/Wt Last Vital Signs Temp 99.2 F 07/02/22 07:54 Pulse 99 07/02/22 08:06 Resp 20 H 07/02/22 07:54 BP 190/104 07/02/22 07:54 Pulse Ox 98 07/02/22 08:06 O2 Del Method 07/02/22 08:01 O2 Flow Rate 2 07/02/22 08:01 07/01/22 07/02/22 07/02/22 22:59 06:59 14:59 Intake Total 60 / 300 Output Total 1300 / 1300 600 / 600 Balance -1240 / -1000 -600 / -600 Weight last 48 hrs Weight 124.284 kg Physical Exam Narrative: Pleasant Const: COMMON NORMALS: patient oriented x3 and alert GENERAL APPEARANCE: cooperative ORIENTATION/CONSCIOUSNESS: Yes awake HENMT: COMMON NORMALS: oropharynx normal Neck/C-Spine: COMMON NORMALS: no JVD Resp: COMMON NORMALS: normal respiratory effort AUSCULTATION: diminished lung sounds Cardio: COMMON NORMALS: no JVD, regular rhythm, S1 normal heart sound present, S2 normal heart sound present and No murmurs present (Cardio) RHYTHM: regular rhythm HEART SOUNDS: S1 normal heart sound present and S2 normal heart sound present GI: COMMON NORMALS: Normal to inspection, nondistended, normoactive bowel sounds present, Soft to palpation and non-tender PALPATION: Yes Soft to palpation Extremity: COMMON NORMALS: no joint enlargement and no pedal edema OTHER: Left ankle without deformity. No open wounds. Neuro: COMMON NORMALS: patient oriented x3 and moves all extremities SENSORIUM/ORIENTATION: Yes alert Skin: COMMON NORMALS: no rashes or lesions noted GENERAL SKIN EXAM: no rashes or lesions noted Data 07/02/22 04:38 07/02/22 04:38 Micro: Microbiology 06/30/22 05:24 Gram Stain - Final Sputum - Expectorated Sputum Sputum Culture - Preliminary A&P Assessment and plan (1) Hypoxia: Secondary to a combination of mixed systolic and diastolic congestive heart failure along with COPD exacerbation in setting of bilateral pneumonia. (2) Pneumonia: Follow-up sputum culture. For now continue with ceftriaxone azithromycin. Urine Legionella, bacterial antigen negative. Blood cultures so far negative. Budesonide twice daily, DuoNebs every 6 hour. Oxygen supplementation keeping saturation over 90%. At baseline not on oxygen. (3) Congestive heart failure: Mixed systolic and diastolic congestive heart failure. Echocardiogram done shows an EF of 50% with regional wall motion abnormality. Continue with IV Lasix daily. Increase dose to 60 mg daily. Strict input output charting, daily weights. Qualifiers: Heart failure type: combined systolic and diastolic Heart failure chronicity: acute on chronic Qualified Code(s): I50.43 - Acute on chronic combined systolic (congestive) and diastolic (congestive) heart failure (4) CAD (coronary artery disease): Post PCI to LAD in August for ST elevation [place]. As per discussion with cardiology with rising troponin trend on presentation, underlying coronary disease, would benefit from further assessment by coronary angiography once respiratory status is further improving. Currently chest pain-free. Continue with aspirin, Brilinta, statin. (5) Chronic kidney disease, stage 1: (6) Diabetes 1.5, managed as type 2: (7) Essential (primary) hypertension: Goal blood pressure less than 140/90 mmHg. Blood pressure is elevated. Increased dose of home Coreg to 25 mg twice daily, Imdur to 60 mg daily. Continue with home dose of lisinopril. Add hydralazine 10 mg 3 times daily. Will uptitrate as per blood pressure goal. (8) Stented coronary artery: (9) Elevated troponin: (10) Peripheral vascular disease, unspecified: Plan Full code DVT prophylaxis: Heparin SQ twice daily Diet: Cardiac consistent carbohydrate Discharge planning: Plan to discharge home with caregiver once medically stable. Will need home O2 eval prior to discharge. 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
--- NOTE | 2022-07-02 11:37 | PC.SOCIAL ---
Pg 2 IMM Explained to pt Pg 2 IMM. No questions voiced. Provided pt a copy. Initialed, dated, & timed a copy & placed in chart.
[2022-07-02 12:04] LABS: Glucose Point of Care 209 mg/dL (70-110)
[2022-07-02] MEDS: insulin lispro 100 unit/1 mL SUBCUT ×2 (12:20→22:12)
[2022-07-02] MEDS: acetaminophen 325 mg Tablet 650 MG PO ×2 (12:30→22:19)
[2022-07-02 17:20] LABS: Glucose Point of Care 114 mg/dL (70-110)
[2022-07-02] MEDS: carvedilol 25 mg Tablet PO (17:43)
[2022-07-02] MEDS: gabapentin 400 mg Capsule 1600 MG PO (17:43)
--- NOTE | 2022-07-02 17:49 | PC.NURSE ---
Pt request to wait until 2100 meds to take his lantus. Blood sugar 114. Will pass to oncoming shift.
[2022-07-02 21:54] LABS: Glucose Point of Care 191 mg/dL (70-110)
[2022-07-02] MEDS: cefTRIAXone 1,000 MG in sodium chloride 0.9% (plus) 50 ML 100 MG IV (22:12)
[2022-07-02] MEDS: azithromycin 500 MG in sodium chloride 0.9% 250 ML 250 MG IV (23:04)
[2022-07-03] VITALS (13 sets, daily range): BP systolic 110–181; BP diastolic 63–85; PULSE 63–84; RESP 15–20; TEMP 36.6–37.1; O2SAT 92–95
[2022-07-03] MEDS: enoxaparin 100 mg/mL Syringe SUBCUT ×2 (05:13→17:33)
[2022-07-03] MEDS: gabapentin 400 mg Capsule 800 MG PO (05:13)
[2022-07-03 06:14] LABS: Basophils % 0.4 %; Eosinophils % 0.7 %; Hematocrit 43.5 % (42.0-52.0); Hemoglobin 14.5 g/dL (11.7-16.6); Lymphocytes # 1.1 10^3/uL (0.8-4.8); Mean Corpuscular HGB Conc 33.3 g/dL (30.0-36.0); Mean Corpuscular Hemoglobin 30.3 pg (28.0-34.0); Mean Platelet Volume 10.8 fL (7.4-10.4); Monocytes # 1.1 10^3/uL (0.2-0.9); Monocytes % 19.7 %; Neutrophils # 3.33 10^3/uL (1.8-7.7); Neutrophils % 58.5 %; Nucleated Red Blood Cells % 0 %; Platelet Count 209 10^3/cmm (130-400); Red Blood Count 4.78 10^6/uL (4.1-5.3); Red Cell Distribution Width 12.6 % (12.1-15.1); White Blood Count 5.7 10^3/uL (4.0-10.0)
--- NOTE | 2022-07-03 06:15 | XRR_ITS ---
PROCEDURE INFORMATION: Exam: XR Chest Exam date and time: 07/03/2022 6:33 AM Age: 72 years old Clinical indication: Condition or disease; Lung condition and disease; Other: Chf; Shortness of breath TECHNIQUE: Imaging protocol: Radiologic exam of the chest. Views: 1 view. COMPARISON: CR (CHEST, ) 06/29/2022 8:30 PM FINDINGS: Lungs: Improved pulmonary edema. Persistent left basilar airspace opacity. Pleural spaces: Unremarkable. No pleural effusion. No pneumothorax. Heart/Mediastinum: Unremarkable. No cardiomegaly. Bones/joints: Unremarkable. XR/XR chest 1V portable [id number] IMPRESSION: Improved pulmonary edema. Persistent left basilar airspace opacity may reflect atelectasis versus pneumonia.
[2022-07-03 06:33] LABS: Anion Gap 14.4 (5-19); Blood Urea Nitrogen 20 mg/dL (8-23); Calcium 8.5 mg/dL (8.5-10.5); Carbon Dioxide 30 mmol/L (22-29); Chloride 95 mmol/L (98-107); Glucose 69 mg/dL (65-115); Osmolality Calculated 283 mOsm/kg (285-295); Potassium 3.4 mmol/L (3.5-5.1); Sodium 136 mmol/L (136-145)
[2022-07-03 06:57] LABS: Glucose Point of Care 68 mg/dL (70-110)
[2022-07-03 07:10] LABS: NT Pro B Type Natriuretic Pept 4374 pg/mL (0-125)
[2022-07-03 07:20] LABS: Slide Review Slide Review Perform
[2022-07-03] MEDS: ipratropium-albuterol 3 mL Neb INHALATION ×4 (08:03→20:21)
[2022-07-03] MEDS: acetaminophen 325 mg Tablet 650 MG PO (08:23)
[2022-07-03] MEDS: isosorbide mononitrate ER 60 mg Tablet PO (08:24)
[2022-07-03] MEDS: lisinopril 20 mg Tablet PO ×2 (08:24→17:34)
[2022-07-03] MEDS: aspirin 81 mg EC Tablet PO (08:24)
[2022-07-03] MEDS: carvedilol 25 mg Tablet PO ×2 (08:24→17:34)
[2022-07-03] MEDS: hyDRALAzine 10 mg Tablet PO ×3 (08:24→20:31)
[2022-07-03] MEDS: FUROsemide 10 mg/mL SDV 10mL 60 MG IVP ×2 (08:24→17:33)
[2022-07-03] MEDS: ticagrelor 90 mg Tablet PO ×2 (08:24→17:34)
--- NOTE | 2022-07-03 09:48 | PM.PN ---
Subjective Subjective: Patient still has shortness of breath. Blood pressure is elevated. Vitals/I&O/Wt Last Vital Signs Temp 98.2 F 07/03/22 08:30 Pulse 81 07/03/22 08:30 Resp 20 H 07/03/22 08:30 BP 181/85 07/03/22 08:30 Pulse Ox 93 07/03/22 08:30 O2 Del Method 07/03/22 08:30 O2 Flow Rate 2 07/03/22 08:30 07/02/22 07/03/22 07/03/22 22:59 06:59 14:59 Output Total 500 / 1100 Balance -500 / -1100 Weight last 48 hrs Weight 263 lb 9 oz Weight 263 lb 9 oz Physical Exam Narrative: GENERAL: Patient is alert, awake and oriented x3. [] NECK: No jugular vein distension. [] HEENT: No cyanosis. No icterus. No pallor. [] HEART: Regular S1 and S2. No murmur, rub or gallop. [] LUNGS: Diminished sounds bilaterally. CENTRAL NERVOUS SYSTEM: Grossly nonfocal. [] EXTREMITIES: Lower extremities with no edema Data 07/03/22 05:42 07/03/22 05:42 Micro: Microbiology 06/30/22 05:24 Gram Stain - Final Sputum - Expectorated Sputum Sputum Culture - Final A&P Assessment and plan (1) Elevated troponin: Troponins have trended up significantly. Plan for coronary angiogram with PCI once patient is euvolemic. He will need to continue with diuretics.We will uptitrate lasix to 80mg BID Continue dual antiplatelet therapy. (2) Atherosclerosis of coronary artery of [place] heart without angina pectoris: Patient had residual ramus artery stenosis. Also had a CARAMEL CANDY MAKER of distal RCA with collateral blood supply. We will proceed with coronary angiogram with possible intervention once he is stable from volume standpoint. (3) Congestive heart failure: Continue IV diuretics. He is still volume overloaded Qualifiers: Heart failure chronicity: acute on chronic Heart failure type: combined systolic and diastolic Qualified Code(s): I50.43 - Acute on chronic combined systolic (congestive) and diastolic (congestive) heart failure (4) Essential (primary) hypertension: (5) Diabetes 1.5, managed as type 2: Aggressive management of the diabetes would be appropriate. (6) Peripheral vascular disease, unspecified: Stable (7) Pneumonia: Antibiotic therapy per primary team. Plan Continue IV diuresis. Continue NSTEMI treatment. Awaiting patient's volume status to improve Thank you for involving us with care of this patient. We will continue to follow. Please call with questions. Attestations Medical Necessity Statement*: Care expected to cross 2 midnights. Coding Level of Care Code Acute Wallcovering Texturer for g Fwd Diagnoses Elevated troponin R77.8 Atherosclerosis of coronary artery of [place] heart without angina pectoris I25.10 Congestive heart failure I50.43 Heart failure chronicity: acute on chronic Heart failure type: combined systolic and diastolic Essential (primary) hypertension I10 Diabetes 1.5, managed as type 2 E13.9 Peripheral vascular disease, unspecified I73.9 Pneumonia J18.9
[2022-07-03] MEDS: insulin glargine 100 units/1 mL 30 UNIT SUBCUT ×2 (10:35→20:31)
[2022-07-03] MEDS: benzonatate 100 mg Capsule 200 MG PO (11:04)
[2022-07-03 11:37] LABS: Glucose Point of Care 236 mg/dL (70-110)
--- NOTE | 2022-07-03 12:34 | PM.PN ---
Subjective Subjective: Today morning seen with family at bedside. Still having difficulty in breathing on lying down flat. Currently on 2 to 3 L of oxygen supplementation saturating more than 90%. Blood pressure currently well without antihypertensives were adjusted. Asking for his eyedrops to be restarted. Otherwise denies any chest pain, increased cough, abdominal pain, dysuria. Patient did have mild hypoglycemia today morning as has been kept n.p.o. for possible cardiac catheterization. Cardiac catheterization has been deferred given requirement of being more euvolemic to lie down flat. Diet has been restarted. Vitals/I&O/Wt Last Vital Signs Temp 98.2 F 07/03/22 08:30 Pulse 75 07/03/22 11:30 Resp 20 H 07/03/22 11:21 BP 181/85 07/03/22 08:30 Pulse Ox 92 07/03/22 11:21 O2 Del Method 07/03/22 11:21 O2 Flow Rate 3 07/03/22 11:21 07/02/22 07/03/22 07/03/22 22:59 06:59 14:59 Intake Total 120 / 120 Output Total 500 / 1100 Balance -500 / -1100 120 / 120 Weight last 48 hrs Weight 119.55 kg Weight 119.55 kg Physical Exam Narrative: Pleasant Const: COMMON NORMALS: patient oriented x3 and alert GENERAL APPEARANCE: cooperative ORIENTATION/CONSCIOUSNESS: Yes awake HENMT: COMMON NORMALS: oropharynx normal Neck/C-Spine: COMMON NORMALS: no JVD Resp: COMMON NORMALS: normal respiratory effort AUSCULTATION: diminished lung sounds Cardio: COMMON NORMALS: no JVD, regular rhythm, S1 normal heart sound present, S2 normal heart sound present and No murmurs present (Cardio) RHYTHM: regular rhythm HEART SOUNDS: S1 normal heart sound present and S2 normal heart sound present GI: COMMON NORMALS: Normal to inspection, nondistended, normoactive bowel sounds present, Soft to palpation and non-tender PALPATION: Yes Soft to palpation Extremity: COMMON NORMALS: no joint enlargement and no pedal edema OTHER: Left ankle without deformity. No open wounds. Neuro: COMMON NORMALS: patient oriented x3 and moves all extremities SENSORIUM/ORIENTATION: Yes alert Skin: COMMON NORMALS: no rashes or lesions noted GENERAL SKIN EXAM: no rashes or lesions noted Data 07/03/22 05:42 07/03/22 05:42 Micro: Microbiology 06/30/22 05:24 Gram Stain - Final Sputum - Expectorated Sputum Sputum Culture - Final A&P Assessment and plan (1) Hypoxia: Secondary to a combination of mixed systolic and diastolic congestive heart failure along with COPD exacerbation in setting of bilateral pneumonia. (2) Pneumonia: Follow-up sputum culture. For now continue with ceftriaxone azithromycin. Urine Legionella, bacterial antigen negative. Blood cultures so far negative. Budesonide twice daily, DuoNebs every 6 hour. Oxygen supplementation keeping saturation over 90%. At baseline not on oxygen. (3) Congestive heart failure: Mixed systolic and diastolic congestive heart failure. Echocardiogram done shows an EF of 50% with regional wall motion abnormality. Continue with IV Lasix daily. Increase dose to 60 mg daily. Strict input output charting, daily weights. Qualifiers: Heart failure chronicity: acute on chronic Heart failure type: combined systolic and diastolic Qualified Code(s): I50.43 - Acute on chronic combined systolic (congestive) and diastolic (congestive) heart failure (4) CAD (coronary artery disease): Post PCI to LAD in August for ST elevation [place]. As per discussion with cardiology with rising troponin trend on presentation, underlying coronary disease, would benefit from further assessment by coronary angiography once respiratory status is further improving. Currently chest pain-free. Continue with aspirin, Brilinta, statin. C/w therapeutic lovenox. (5) Chronic kidney disease, stage 1: (6) Diabetes 1.5, managed as type 2: (7) Essential (primary) hypertension: Goal blood pressure less than 140/90 mmHg. Blood pressure is elevated. Increased dose of home Coreg to 25 mg twice daily, Imdur to 60 mg daily. Continue with home dose of lisinopril. Add hydralazine 10 mg 3 times daily. Will uptitrate as per blood pressure goal. (8) Stented coronary artery: (9) Elevated troponin: (10) Peripheral vascular disease, unspecified: Plan Full code DVT prophylaxis: Heparin SQ twice daily Diet: Cardiac consistent carbohydrate Plan for the day: Continue with adjusted antihypertensives. Monitor blood pressures. Uptitrate as per goals keeping less than 140/90 mmHg. Restart home eyedrops. IV Lasix 60 mg twice daily. Developing mild contraction alkalosis so we will start on Diamox to 50 mg oral daily. Replace potassium. Strict input output charting, daily weights. Continue with therapeutic Lovenox. Restart diet. We will plan for cardiac catheterization in next couple of days once volume status improves further. Cannot rule out underlying sleep apnea. Continue with insulin sliding scale at current dose. Discharge planning: Plan to discharge home with caregiver once medically stable. Will need home O2 eval prior to discharge. Attestations Medical Necessity Statement*: Requires further hospitalization for management of hypoxia secondary to heart failure in setting of CAD requiring further cardiac angiogram and possible PCI once patient is more euvolemic. 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
[2022-07-03] MEDS: insulin lispro 100 unit/1 mL SUBCUT ×3 (12:39→20:46)
[2022-07-03] MEDS: acetaZOLAMIDE 250 mg Tablet PO (14:31)
[2022-07-03 16:47] LABS: Glucose Point of Care 166 mg/dL (70-110)
[2022-07-03] MEDS: gabapentin 400 mg Capsule 1600 MG PO (17:33)
[2022-07-03] MEDS: guaiFENesin 100 mg/5 mL UDC 10 mL 400 MG PO (17:33)
[2022-07-03] MEDS: FUROsemide 10 mg/mL SDV 2mL 20 MG IVP (18:19)
[2022-07-03 20:40] LABS: Glucose Point of Care 143 mg/dL (70-110)
[2022-07-03] MEDS: cefTRIAXone 1,000 MG in sodium chloride 0.9% (plus) 50 ML 100 MG IV (22:56)
[2022-07-03] MEDS: azithromycin 500 MG in sodium chloride 0.9% 250 ML 250 MG IV (23:31)
[2022-07-04] VITALS (10 sets, daily range): BP systolic 105–144; BP diastolic 62–77; PULSE 66–76; RESP 16–19; TEMP 36.4–36.9; O2SAT 92–95
[2022-07-04] MEDS: gabapentin 400 mg Capsule 800 MG PO (05:13)
[2022-07-04] MEDS: enoxaparin 100 mg/mL Syringe SUBCUT ×2 (05:13→17:31)
[2022-07-04 06:13] LABS: Basophils % 0.2 %; Eosinophils # 0.1 10^3/uL (0.0-0.8); Hematocrit 45.8 % (42.0-52.0); Hemoglobin 14.7 g/dL (11.7-16.6); Lymphocytes # 1.5 10^3/uL (0.8-4.8); Lymphocytes % 28.2 %; Mean Corpuscular HGB Conc 32.1 g/dL (30.0-36.0); Mean Corpuscular Hemoglobin 30.4 pg (28.0-34.0); Mean Corpuscular Volume 94.6 fl (80-94); Mean Platelet Volume 11.2 fL (7.4-10.4); Monocytes # 0.9 10^3/uL (0.2-0.9); Monocytes % 17.9 %; Neutrophils # 2.72 10^3/uL (1.8-7.7); Neutrophils % 51.9 %; Nucleated Red Blood Cells % 0 %; Platelet Count 177 10^3/cmm (130-400); Red Blood Count 4.84 10^6/uL (4.1-5.3); Red Cell Distribution Width 12.7 % (12.1-15.1); White Blood Count 5.2 10^3/uL (4.0-10.0)
[2022-07-04 06:56] LABS: Glucose Point of Care 92 mg/dL (70-110)
--- NOTE | 2022-07-04 07:14 | PM.PN ---
Subjective Subjective: Patient is feeling better. Still requiring O2. I and Os not accuarately documented. Vitals/I&O/Wt Last Vital Signs Temp 98.5 F 07/04/22 04:00 Pulse 70 07/04/22 04:00 Resp 16 07/04/22 04:00 BP 137/77 07/04/22 04:00 Pulse Ox 95 07/04/22 04:00 O2 Del Method 07/04/22 04:00 O2 Flow Rate 4 07/04/22 04:00 07/03/22 07/04/22 07/04/22 22:59 06:59 14:59 Intake Total 300 / 420 240 / 660 Output Total 500 / 775 75 / 850 Balance -200 / -355 165 / -190 Weight last 48 hrs Weight 263 lb 9 oz Weight 263 lb 9 oz Physical Exam Narrative: GENERAL: Patient is alert, awake and oriented x3. [] NECK: No jugular vein distension. [] HEENT: No cyanosis. No icterus. No pallor. [] HEART: Regular S1 and S2. No murmur, rub or gallop. [] LUNGS: Diminished sounds bilaterally. CENTRAL NERVOUS SYSTEM: Grossly nonfocal. [] EXTREMITIES: Lower extremities with no edema Data 07/04/22 05:01 07/04/22 05:01 A&P Assessment and plan (1) Elevated troponin: Troponins trended up significantly. Continue IV diuresis. BMP for today is pending. Plan for coronary angiogram possibly tomorrow. Continue dual antiplatelet therapy. (2) Atherosclerosis of coronary artery of [place] heart without angina pectoris: Patient had residual ramus artery stenosis. 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 We will proceed with coronary angiogram with possible intervention once he is stable from volume standpoint. (3) Congestive heart failure: Continue IV diuretics. Qualifiers: Heart failure chronicity: acute on chronic Heart failure type: combined systolic and diastolic Qualified Code(s): I50.43 - Acute on chronic combined systolic (congestive) and diastolic (congestive) heart failure (4) Essential (primary) hypertension: (5) Diabetes 1.5, managed as type 2: Aggressive management of the diabetes would be appropriate. (6) Peripheral vascular disease, unspecified: Stable (7) Pneumonia: Antibiotic therapy per primary team. Plan Continue IV diuresis. Continue NSTEMI treatment. Coronary angiogram once patient is euvolemic Thank you for involving us with care of this patient. We will continue to follow. Please call with questions. Attestations Medical Necessity Statement*: Care expected to cross 2 midnights. 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
[2022-07-04] MEDS: ipratropium-albuterol 3 mL Neb INHALATION ×2 (07:38→11:46)
[2022-07-04] MEDS: acetaZOLAMIDE 250 mg Tablet PO ×2 (08:33→13:38)
[2022-07-04] MEDS: carvedilol 25 mg Tablet PO ×2 (08:33→17:30)
[2022-07-04] MEDS: isosorbide mononitrate ER 60 mg Tablet PO (08:33)
[2022-07-04] MEDS: lisinopril 20 mg Tablet PO ×2 (08:33→17:30)
[2022-07-04] MEDS: FUROsemide 10 mg/mL SDV 10mL 80 MG IVP ×2 (08:33→09:57)
[2022-07-04] MEDS: hyDRALAzine 10 mg Tablet PO ×3 (08:33→22:05)
[2022-07-04] MEDS: aspirin 81 mg EC Tablet PO (09:57)
[2022-07-04] MEDS: ticagrelor 90 mg Tablet PO ×2 (09:57→17:30)
[2022-07-04 10:23] LABS: Anion Gap 11.6 (5-19); Blood Urea Nitrogen 24 mg/dL (8-23); Calcium 8.5 mg/dL (8.5-10.5); Carbon Dioxide 31 mmol/L (22-29); Chloride 97 mmol/L (98-107); Glucose 106 mg/dL (65-115); Osmolality Calculated 286 mOsm/kg (285-295); Potassium 3.6 mmol/L (3.5-5.1); Sodium 136 mmol/L (136-145)
[2022-07-04] MEDS: insulin glargine 100 units/1 mL 30 UNIT SUBCUT ×2 (10:31→18:35)
[2022-07-04 12:05] LABS: Glucose Point of Care 200 mg/dL (70-110)
[2022-07-04] MEDS: insulin lispro 100 unit/1 mL SUBCUT (12:39)
--- NOTE | 2022-07-04 12:52 | P.PN_ITS ---
Subjective Subjective: No acute events overnight. Today morning seen sitting in chair with spouse at bedside. States feeling a lot better today states he thinks that the swelling is going down and is able to left leg down flatter today. Did have episode of epistaxis today morning secondary to dehydration from oxygen nasally. Humidifier added. Patient's Lasix increased as per cardiology service yesterday but developing more contraction alkalosis. Vitals/I&O/Wt Last Vital Signs Temp 97.8 F 07/04/22 12:00 Pulse 75 07/04/22 12:00 Resp 17 07/04/22 12:00 BP 132/64 07/04/22 12:00 Pulse Ox 92 07/04/22 12:00 O2 Del Method 07/04/22 12:00 O2 Flow Rate 4 07/04/22 11:43 07/03/22 07/04/22 07/04/22 22:59 06:59 14:59 Intake Total 300 / 420 240 / 660 300 / 300 Output Total 500 / 775 75 / 850 400 / 400 Balance -200 / -355 165 / -190 -100 / -100 Weight last 48 hrs Weight 119.55 kg Weight 119.55 kg Physical Exam Narrative: Pleasant Const: COMMON NORMALS: patient oriented x3 and alert GENERAL APPEARANCE: cooperative ORIENTATION/CONSCIOUSNESS: Yes awake HENMT: COMMON NORMALS: oropharynx normal Neck/C-Spine: COMMON NORMALS: no JVD Resp: COMMON NORMALS: normal respiratory effort AUSCULTATION: diminished lung sounds Cardio: COMMON NORMALS: no JVD, regular rhythm, S1 normal heart sound present, S2 normal heart sound present and No murmurs present (Cardio) RHYTHM: regular rhythm HEART SOUNDS: S1 normal heart sound present and S2 normal heart sound present GI: COMMON NORMALS: Normal to inspection, nondistended, normoactive bowel sounds present, Soft to palpation and non-tender PALPATION: Yes Soft to palpation Extremity: COMMON NORMALS: no joint enlargement and no pedal edema OTHER: Left ankle without deformity. No open wounds. Neuro: COMMON NORMALS: patient oriented x3 and moves all extremities SENSORIUM/ORIENTATION: Yes alert Skin: COMMON NORMALS: no rashes or lesions noted GENERAL SKIN EXAM: no rashes or lesions noted Data 07/04/22 05:01 07/04/22 09:45 A&P Assessment and plan (1) Hypoxia: Secondary to a combination of mixed systolic and diastolic congestive heart failure along with COPD exacerbation in setting of bilateral pneumonia. (2) Pneumonia: Follow-up sputum culture. For now continue with ceftriaxone azithromycin. Urine Legionella, bacterial antigen negative. Blood cultures so far negative. Budesonide twice daily, DuoNebs every 6 hour. Oxygen supplementation keeping saturation over 90%. At baseline not on oxygen. (3) Congestive heart failure: Mixed systolic and diastolic congestive heart failure. Echocardiogram done shows an EF of 50% with regional wall motion abnormality. Continue with IV Lasix daily. Increase dose to 60 mg daily. Strict input output charting, daily weights. Qualifiers: Heart failure chronicity: acute on chronic Heart failure type: combined systolic and diastolic Qualified Code(s): I50.43 - Acute on chronic combined systolic (congestive) and diastolic (congestive) heart failure (4) CAD (coronary artery disease): Post PCI to LAD in August for ST elevation [place]. As per discussion with cardiology with rising troponin trend on presentation, underlying coronary disease, would benefit from further assessment by coronary angiography once respiratory status is further improving. Currently chest pain-free. Continue with aspirin, Brilinta, statin. C/w therapeutic lovenox. (5) Chronic kidney disease, stage 1: (6) Diabetes 1.5, managed as type 2: (7) Essential (primary) hypertension: Goal blood pressure less than 140/90 mmHg. Blood pressure is elevated. Increased dose of home Coreg to 25 mg twice daily, Imdur to 60 mg daily. Continue with home dose of lisinopril. Add hydralazine 10 mg 3 times daily. Will uptitrate as per blood pressure goal. (8) Stented coronary artery: (9) Elevated troponin: (10) Peripheral vascular disease, unspecified: Plan Full code DVT prophylaxis: Therapeutic Lovenox will also suffice for DVT prophylaxis. Diet: Cardiac consistent carbohydrate Plan for the day: Appreciate chest x-ray from yesterday. Blood pressure is better controlled. Continue with current antihypertensives. Contraction alkalosis slightly worsened today. Increase Diamox to 500 mg oral daily. Cut back IV Lasix back to 60 mg twice daily which is same as the dose from yesterday. Strict input output charting. Continue with therapeutic Lovenox. Plan for cardiac catheterization in a.m. N.p.o. after midnight. Cannot rule out underlying sleep apnea. Continue with insulin sliding scale at current dose. Follow sputum culture. Continue with IV ceftriaxone. Hold off on azithromycin. Discharge planning: Plan to discharge home with caregiver once medically stable. Will need home O2 eval prior to discharge. Attestations Medical Necessity Statement*: Requires further hospitalization for management of hypoxia secondary to congestive heart failure, bilateral pneumonia, CAD requiring further cardiac catheterization. 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
--- NOTE | 2022-07-04 13:53 | PC.SOCIAL ---
IMM Updated pt & his on IMM. No questions voiced. Provided pt a copy. Initialed, dated, & timed copy in chart.
[2022-07-04] MEDS: gabapentin 400 mg Capsule 1600 MG PO (17:30)
[2022-07-04 17:34] LABS: Glucose Point of Care 124 mg/dL (70-110)
[2022-07-04] MEDS: FUROsemide 10 mg/mL SDV 10mL 60 MG IVP (17:48)
[2022-07-04] MEDS: acetaminophen 325 mg Tablet 650 MG PO (18:39)
[2022-07-04 21:27] LABS: Glucose Point of Care 98 mg/dL (70-110)
[2022-07-04] MEDS: cefTRIAXone 1,000 MG in sodium chloride 0.9% (plus) 50 ML 100 MG IV (22:06)
[2022-07-05] VITALS (22 sets, daily range): BP systolic 118–230; BP diastolic 67–122; PULSE 60–85; RESP 16–32; TEMP 36.3–37.1; O2SAT 92–97
[2022-07-05 03:30] LABS: Alanine Aminotransferase 16 U/L (0-41); Albumin Level 3.3 g/dL (3.5-5.2); Alkaline Phosphatase 74 U/L (40-130); Anion Gap 14.2 (5-19); Aspartate Amino Transferase 17 U/L (0-40); Blood Urea Nitrogen 27 mg/dL (8-23); Calcium 8.5 mg/dL (8.5-10.5); Carbon Dioxide 31 mmol/L (22-29); Chloride 96 mmol/L (98-107); Globulin 3.5 g/dL (1.3-4.6); Glucose 86 mg/dL (65-115); Osmolality Calculated 290 mOsm/kg (285-295); Potassium 3.2 mmol/L (3.5-5.1); Sodium 138 mmol/L (136-145); Total Bilirubin 0.3 mg/dL (0.15-1.2); Total Protein 6.8 g/dL (6.6-8.7)
[2022-07-05] MEDS: enoxaparin 100 mg/mL Syringe SUBCUT (05:21)
[2022-07-05] MEDS: gabapentin 400 mg Capsule 800 MG PO (05:21)
[2022-07-05 06:49] LABS: Glucose Point of Care 92 mg/dL (70-110)
--- NOTE | 2022-07-05 07:32 | P.PN_ITS ---
Subjective Subjective: Patient underwent coronary angiogram that showed STEAMTABLE ATTENDANT RAILROAD of RCA, LCx (same as last year), patent left main and LAD stents, had severe mid ramus artery stenosis that underwent successful balloon angioplasty. Stent could not be advanced through the stent struts of the left main artery stent. Vitals/I&O/Wt Last Vital Signs Temp 98.7 F 07/05/22 04:00 Pulse 69 07/05/22 04:00 Resp 22 H 07/05/22 04:00 BP 135/71 07/05/22 04:00 Pulse Ox 94 07/05/22 04:00 O2 Del Method 07/04/22 15:52 O2 Flow Rate 4 07/04/22 15:30 07/04/22 07/05/22 07/05/22 22:59 06:59 14:59 Intake Total 750 / 1290 650 / 1940 Output Total 1075 / 1825 1150 / 2975 Balance -325 / -535 -500 / -1035 Weight last 48 hrs Weight 270 lb Physical Exam Narrative: GENERAL: Patient is alert, awake and oriented x3. [] NECK: No jugular vein distension. [] HEENT: No cyanosis. No icterus. No pallor. [] HEART: Regular S1 and S2. No murmur, rub or gallop. [] LUNGS: Diminished sounds bilaterally. CENTRAL NERVOUS SYSTEM: Grossly nonfocal. [] EXTREMITIES: Lower extremities with no edema Data 07/04/22 05:01 07/05/22 02:31 Micro: Microbiology 06/29/22 20:35 Blood Culture - Final Blood NO GROWTH AFTER 5 DAYS 06/29/22 20:14 Blood Culture - Final Blood NO GROWTH AFTER 5 DAYS A&P Assessment and plan (1) Elevated troponin: SecondaryCoronary angiogram performed that showed artery stenosis that underwent balloon angioplasty. Continue aspirin and Brilinta. (2) Atherosclerosis of coronary artery of [place] heart without angina pectoris: Patient had residual ramus artery stenosis. Status post successful balloon angioplasty. Stent could not be advanced through left main artery stent struts. Continue aspirin and Brilinta (3) Congestive heart failure: Hold diuretics tonight. Will resume tomorrow Qualifiers: Heart failure chronicity: acute on chronic Heart failure type: combined systolic and diastolic Qualified Code(s): I50.43 - Acute on chronic combined systolic (congestive) and diastolic (congestive) heart failure (4) Essential (primary) hypertension: (5) Diabetes 1.5, managed as type 2: Aggressive management of the diabetes would be appropriate. (6) Peripheral vascular disease, unspecified: Stable (7) Pneumonia: Antibiotic therapy per primary team. Plan Continue IV diuresis. Continue NSTEMI treatment. Thank you for involving us with care of this patient. We will continue to follow. Please call with questions. Attestations Medical Necessity Statement*: Care expected to cross 2 midnights. Coding Level of Care Code Acute Code for [facility] Fwd Diagnoses Elevated troponin R77.8 Atherosclerosis of coronary artery of [place] heart without angina pectoris I25.10 Congestive heart failure I50.43 Heart failure chronicity: acute on chronic Heart failure type: combined systolic and diastolic Essential (primary) hypertension I10 Diabetes 1.5, managed as type 2 E13.9 Peripheral vascular disease, unspecified I73.9 Pneumonia J18.9
[2022-07-05 08:17] LABS: Glucose Point of Care 80 mg/dL (70-110)
[2022-07-05] MEDS: ipratropium-albuterol 3 mL Neb INHALATION ×4 (08:24→20:19)
[2022-07-05] MEDS: aspirin 81 mg EC Tablet PO (08:50)
[2022-07-05] MEDS: carvedilol 25 mg Tablet PO ×2 (08:50→20:32)
[2022-07-05] MEDS: ticagrelor 90 mg Tablet PO ×2 (08:50→20:32)
[2022-07-05] MEDS: hyDRALAzine 10 mg Tablet PO ×2 (08:50→20:33)
[2022-07-05] MEDS: isosorbide mononitrate ER 60 mg Tablet PO (08:50)
[2022-07-05] MEDS: lisinopril 20 mg Tablet PO ×2 (08:50→20:32)
[2022-07-05] MEDS: potassium chloride ER 20 mEq Tablet 40 MEQ PO (08:53)
--- NOTE | 2022-07-05 10:00 | XACV_ITS ---
Exam Room: 2 Ht: 191 cm Wt: 124 kg BSA: 2.60 m2 Gender: Male : 1950 Any Known Allergies: No known allergies Exam Priority: Routine Procedure(s): Procedure Description: Diagnostic procedure Procedure Description: PCI procedure Procedure Description: PTCA Procedure Description: Miscellaneous Procedure Description: ACT Procedure Description: Coronary Angiography Diagnostic Cath Status: Urgent Diagnostic Findings * Left main artery: Has * patent prior stent. LAD: Has patent prior stent Ramus intermedius artery: Has haziness at ostium. Mid vessel has significant 70% stenosis Left circumflex artery: Small sized vessel with subtotal occlusion RCA: Has distal vessel BOTTOM LOADER with collaterals from left system. Proximal to mid vessel has multiple, heavily calcified stenosis.. * Ramus: obstructive 70% stenosis, SOREN: 3 flow. * Coronary angiography shows right dominance. PCI Status: Urgent PCI Indication: NSTE - ACS Interventional Findings * Procedure detail: We engaged left main artery with XB 3.5 guide catheter. IV heparin was administered to maintain ACT above 250 S. 0.014 run-through guidewire was used to cross into ramus artery. We dilated ostium of ramus artery first with 2.0 x 12 mm semi-compliant balloon, this was followed by dilation of the stent strut with 2.5 x 12 mm semicompliant balloon and then 3.0 x 12 mm semicompliant balloon. Same balloons were used to dilate the stenosis itself as well. We attempted to cross the stent now to mid ramus artery we were unsuccessful in advancing given tortuosity in the vessel and jailing from left main stent. Stenosis had been reduced to 30% and patient was stable. We decided to abort further attempts at placement of stent. Patient left the Rotating Equipment Engineer in a stable condition.. * Ramus: 70% stenosis treated with a AB MINI TREK 2.00X12 RX BALLOON, AB TREK 2.50X12 RX BALLOON, and AB TREK 3.00X12 RX BALLOON. 0% residual stenosis, SOREN: 3 flow. Conclusions 1. S/p successful balloon angioplasty of mid ramus stenosis. Stent could not be advanced secondary to ramus artery tortuosity and jailing of the ramus artery by left main artery stent. 2. Left main artery: Has 3. patent prior stent. LAD: Has patent prior stent Ramus intermedius artery: Has haziness at ostium. Mid vessel has significant 70% stenosis Left circumflex artery: Small sized vessel with subtotal occlusion RCA: Has distal vessel BOTTOM LOADER with collaterals from left system. Proximal to mid vessel has multiple, heavily calcified stenosis.. 4. Ramus was treated with a Balloon, Balloon, and Balloon. Recommendations * Dual antiplatelet therapy for atleast 1 year. * High intensity statin therapy. * Outpatient cardiology follow uo in 4 weeks. Interventional RX Recommendation: PCI w/o planned CABG Diagnostic RX Recommendation: PCI w/o planned CABG Anticoagulation: Heparin Pressures Phase:Rest AO : 132 / 51 ( 87 ) @ 12:10:52 PM 136 / 54 ( 87 ) @ 5:25:00 PM 132 / 50 ( 86 ) @ 5:37:00 PM 92 / 19 ( 52 ) @ 5:42:00 PM Clinical Evaluation EBL: 5mL-10mL Procedural Details Pre-Procedure Time Out. Identified patient by full name and date of as verbalized by the patient/guarantor. Does the consent match the physician's order: No. Accurate & Complete Informed Consent: No. Inpatient/Outpatient History & Physical on Chart: No. If H&P is completed, is and addenduem needed: No. Visualize and Verify Site with Patient/Guarantor: N/A. Relevant Radiology Images available: Yes. Pre-op teaching completed and patient verbalized understanding. The risks, benefits, and alternatives of sedation and/or procedure were discussed by physician. The patient agrees to continue. Procedure started. [facility] Clinical Fraility Score: 4: Vulnerable. Rotating Equipment Engineer Indications: ACS > 24 hours/NSTEMI. Chest Pain Symptom Assessment: Atypical Angina. Cardiovascular Instability: No. Correct patient, site and procedure confirmed by cath team. PERRLA. Strong, equal hand lawn care worker bilaterally. Lungs clear x 5 lobes. PERRLA. Strong, equal hand lawn care worker bilaterally. Lungs clear x 5 lobes. IV Site on Arrival: 20 gauge in the left anticubital. IV Fluids: 0.9% NaCl at KVO. 0 mL infused prior to medical lab director. Pre Procedural Pulses: bilateral dorsalis pedis was Doppled. Pre Procedural Pulses: bilateral posterior tibial was Doppled. Oxygen started at 3liters/min via nasal canula. bilateral groins was prepped with chloroprep then draped in the usual sterile fashion. Physician notified. Baseline sample Acquired. HR: 79 BPM. Patient's family unavailable. Equipment: 6F - Femoral. Cardiac Cath Pack. ACIST Manifold Kit Model BT 2000. Heparinized Saline (2 units/mL), 1000 mL bag. Kit, Micropuncture. Physician arrived. Physician scrubbed in. Immediate Pre-Procedure Time Out. Correct Patient: Yes; Correct Procedure: Yes; Correct Site: Yes; Correct Patient Position: Yes; Correct Supplies: Yes; Dried Flammable Prep: Yes; Blood Products Available: N/A;. Lidocaine 1% infiltrated to the right groin. Arterial access obtained with micropuncture set. 6 Fr cordis sheath out, 6 Fr glidesheath in. Current Diagnosis : NSTEMI. A 5 [place] JL4 catheter in over the exchange J wire. Megan Anderson RN in to circulate for Agapito Kirby RN, KITCHEN HELPER. Multiple views taken of left coronary artery. Catheter removed over the exchange J wire. A 5 [place] JR4 catheter in over the exchange J wire. Multiple views taken of right coronary artery. AP pads plcaed on the patient. Catheter removed over the exchange J wire. Diagnostic complete, starting intervention. 6 [place] XB 3.5 guide catheter was inserted over the wire. Runthrough guidewire was advanced through the guide catheter to lesion in the Ramus. Inflation number : 1 A AB MINI TREK 2.00X12 RX BALLOON was prepped and advanced across the Ramus , then inflated to 10 MAYRA for 0:14 seconds. Inflation number: 2 The AB MINI TREK 2.00X12 RX BALLOON was reinflated across the Ramus, to 12 MAYRA for 0:20 seconds. Balloon out. Inflation number : 3 A AB TREK 2.50X12 RX BALLOON was prepped and advanced across the Ramus , then inflated to 10 MAYRA for 0:17 seconds. Inflation number: 4 The AB TREK 2.50X12 RX BALLOON was reinflated across the Ramus, to 12 MAYRA for 0:08 seconds. Balloon out. Results checked. [place] 2.75 x 15 stent in, unable to cross, removed intact. Inflation number : 5 A AB TREK 3.00X12 RX BALLOON was prepped and advanced across the Ramus , then inflated to MAYRA for 0:12 seconds. Inflation number: 6 The AB TREK 3.00X12 RX BALLOON was reinflated across the Ramus, to 8 MAYRA for 0:16 seconds. Balloon out. [place] 2.75 x 15 stent in, unable to cross, removed intact. Guideliner in. ACT drawn. Results 324 seconds. Therapeutic limits - pre-heparin administration 90-150 seconds and monitoring heparin during a vascular procedure >250 seconds. Sharad 2.75 x 15 stent in, unable to cross, removed intact. Guideliner out. Results checked. A 2nd Runthrough guidewire was advanced through the guide catheter to lesion in the Ramus. Runthrough guidewire out. Sharad 2.75 x 15 stent in, unable to cross, removed intact. Results checked. Runthrough guidewire out. Guide catheter out. ACT drawn. Results seconds. Therapeutic limits - pre-heparin administration 90-150 seconds and monitoring heparin during a vascular procedure >250 seconds. A Right femoral angiogram was performed to determine safe placement of closure device. A Suture was successful obtaining hemostatsis at the Right Femoral artery insertion site. Dr. Helton scrubbed out. Sheath(s) sutured into position with 2-0 silk and sterile 4x4's and Op-site applied over the site. No oozing or signs and symptoms of hematoma noted. Arterial sheath flushed and connected to tranducer and pressure bag with heparinized saline. Post Procedure: Pulses reassessed and unchanged. PERRLA. Strong, equal hand lawn care worker bilaterally. No VTE prophylaxis required. Medication's Wasted: Heparin = 2000 units. Medication's Wasted: Other = Fentanyl 50 mcg. Medication's Wasted: Other = Versed 1 mg. PCI Indication: NSTE. Post-op diagnosis: PTCA of the Ramus. Complications: none. Estimated blood loss: 5mL-10mL. Responsiveness - Normal response to verbal stimuli; alert and oriented, PERRLA. Airway - Unaffected, no intervention required; spontaneous ventilation. Circulation: W/N/L, pulses unchanged. Nausea/Vomiting: No. Procedure completed. Patient transferred by bed to 1st floor. Vital chart was stopped. Access Site Site: Right Femoral artery Sheath Size: 6 Fr Hemostasis Method: Suture Hemostasis Success: Successful Procedure Medications Start: 5:36 PM Stop: 5:36 PM Medication: Heparin Amount: 02712 units Route: I.V. Start: 5:43 PM Stop: 5:43 PM Medication: Heparin Amount: 2000 units Route: I.V. Start: 5:19 PM Stop: 5:19 PM Medication: Versed Amount: 1 mg Route: I.V. Start: 5:19 PM Stop: 5:19 PM Medication: Fentanyl Amount: 50 mcg Route: I.V. I, the attending physician, have reviewed and verified all procedure medications. Yes, all medications given per verbal order History/Risk Factors Hypertension: No Dyslipidemia: No Peripheral Arterial Disease (PAD): Yes Myocardial Infarction (HI): No Obesity: Yes Renal Disease: No Tobacco Use: Former Prior Interventions PCI: Yes CABG: No Valve Surgery: No Report Signatures Finalized by Vadim Helton MD on 07/14/2022 10:28 PM
[2022-07-05] MEDS: FUROsemide 20 mg Tablet PO (10:30)
[2022-07-05 12:11] LABS: Glucose Point of Care 132 mg/dL (70-110)
--- NOTE | 2022-07-05 12:36 | P.PN_ITS ---
Subjective Subjective: No acute events overnight. Patient states he is feeling a lot better. Able to take a deep breath without feeling gurgling in his chest or in his throat anymore. Does not feel as if he is drowning in water anymore. Able to lie down flatter now. Seen with family at bedside. Plan for cardiac an giogram with cardiology around afternoon today. Vitals/I&O/Wt Last Vital Signs Temp 97.7 F 07/05/22 12:00 Pulse 70 07/05/22 12:00 Resp 16 07/05/22 12:00 BP 118/70 07/05/22 12:00 Pulse Ox 92 07/05/22 12:00 O2 Del Method 07/05/22 12:00 O2 Flow Rate 3 07/05/22 11:10 07/04/22 07/05/22 07/05/22 22:59 06:59 14:59 Intake Total 750 / 1290 650 / 1940 Output Total 1075 / 1825 1150 / 2975 Balance -325 / -535 -500 / -1035 Weight last 48 hrs Weight 122.47 kg Physical Exam Narrative: Pleasant Const: COMMON NORMALS: patient oriented x3 and alert GENERAL APPEARANCE: cooperative ORIENTATION/CONSCIOUSNESS: Yes awake HENMT: COMMON NORMALS: oropharynx normal Neck/C-Spine: COMMON NORMALS: no JVD Resp: COMMON NORMALS: normal respiratory effort AUSCULTATION: diminished lung sounds Cardio: COMMON NORMALS: no JVD, regular rhythm, S1 normal heart sound present, S2 normal heart sound present and No murmurs present (Cardio) RHYTHM: regular rhythm HEART SOUNDS: S1 normal heart sound present and S2 normal heart sound present GI: COMMON NORMALS: Normal to inspection, nondistended, normoactive bowel sounds present, Soft to palpation and non-tender PALPATION: Yes Soft to palpation Extremity: COMMON NORMALS: no joint enlargement and no pedal edema OTHER: Left ankle without deformity. No open wounds. Neuro: COMMON NORMALS: patient oriented x3 and moves all extremities SENSORIUM/ORIENTATION: Yes alert Skin: COMMON NORMALS: no rashes or lesions noted GENERAL SKIN EXAM: no rashes or lesions noted Data 07/04/22 05:01 07/05/22 02:31 Micro: Microbiology 06/29/22 20:35 Blood Culture - Final Blood NO GROWTH AFTER 5 DAYS 06/29/22 20:14 Blood Culture - Final Blood NO GROWTH AFTER 5 DAYS A&P Assessment and plan (1) Hypoxia: Secondary to a combination of mixed systolic and diastolic congestive heart failure along with COPD exacerbation in setting of bilateral pneumonia. (2) Pneumonia: Follow-up sputum culture. For now continue with ceftriaxone azithromycin. Urine Legionella, bacterial antigen negative. Blood cultures so far negative. Budesonide twice daily, DuoNebs every 6 hour. Oxygen supplementation keeping saturation over 90%. At baseline not on oxygen. (3) Congestive heart failure: Mixed systolic and diastolic congestive heart failure. Echocardiogram done shows an EF of 50% with regional wall motion abnormality. Continue with IV Lasix daily. Increase dose to 60 mg daily. Strict input output charting, daily weights. Qualifiers: Heart failure chronicity: acute on chronic Heart failure type: combined systolic and diastolic Qualified Code(s): I50.43 - Acute on chronic combined systolic (congestive) and diastolic (congestive) heart failure (4) CAD (coronary artery disease): Post PCI to LAD in August for ST elevation [place]. As per discussion with cardiology with rising troponin trend on presentation, underlying coronary disease, would benefit from further assessment by coronary angiography once respiratory status is further improving. Currently chest pain-free. Continue with aspirin, Brilinta, statin. C/w therapeutic lovenox. (5) Chronic kidney disease, stage 1: (6) Diabetes 1.5, managed as type 2: (7) Essential (primary) hypertension: Goal blood pressure less than 140/90 mmHg. Blood pressure is elevated. Increased dose of home Coreg to 25 mg twice daily, Imdur to 60 mg daily. Continue with home dose of lisinopril. Add hydralazine 10 mg 3 times daily. Will uptitrate as per blood pressure goal. (8) Stented coronary artery: (9) Elevated troponin: (10) Peripheral vascular disease, unspecified: Plan Full code DVT prophylaxis: Therapeutic Lovenox will also suffice for DVT prophylaxis. Diet: Cardiac consistent carbohydrate Plan for the day: Continue with IV diuresis Lasix 60 mg twice daily. Stop Diamox today. Strict input output charting. Oxygen supplementation keeping saturation over 90%. Plan for cardiac catheterization in the afternoon today with cardiology. Will monitor BMP daily for now. Continue with full dose Lovenox. Discharge planning: Plan to discharge home with caregiver once medically stable. Will need home O2 eval prior to discharge. Attestations Medical Necessity Statement*: Requires further hospitalization for management of hypoxia secondary to congestive heart failure, ACS requiring cardiac angiogram for further PCI. Time Spent in Patient Care: Greater than 35 minutes Coding Level of Care Code Acute Code for [facility] Fwd Diagnoses Hypoxia R09.02 Pneumonia J18.9 Congestive heart failure I50.43 Heart failure chronicity: acute on chronic Heart failure type: combined systolic and diastolic CAD (coronary artery disease) I25.10 Chronic kidney disease, stage 1 N18.1 Diabetes 1.5, managed as type 2 E13.9 Essential (primary) hypertension I10 Stented coronary artery Z95.5 Elevated troponin R77.8 Peripheral vascular disease, unspecified I73.9
[2022-07-05 17:11] LABS: Glucose Point of Care 185 mg/dL (70-110)
--- NOTE | 2022-07-05 17:14 | W.PM.OPSUD ---
Surgery/Procedure H&P Update DATE OF PROCEDURE: July 05, 2022 DATE H&P PERFORMED: 06/30/22 H&P UPDATE INFORMATION: I have reviewed H&P completed within last 30 days, I have examined patient prior to procedure and No changes to prior documentation PREOP DIAGNOSIS: NSTEMI PRIMARY INDICATION FOR PROCEDURE: NSTEMI PLANNED PROCEDURE: Operation Date: 07/03/22 10:00 Proposed Procedures p Cardiac Catheterization(Left) - Vadim Helton M.D Possible percutaneous coronary intervention PATIENT REASSESSED PRIOR TO SEDATION, WITH NO CHANGE NOTED: Yes PHYSICAL EXAM: alert, oriented x 3, clear to auscultation bilaterally and regular rate & rhythm AIRWAY EVAL/ANESTHESIA PLAN: normal airway, ASA III, Local Anesthesia, Risks, benefits & alternatives of sedation and/or procedure discussed and Patient agrees to continue as planned ADDITIONAL INFORMATION: Moderate sedation
[2022-07-05] MEDS: benzonatate 100 mg Capsule 200 MG PO (20:32)
[2022-07-05] MEDS: gabapentin 400 mg Capsule 1600 MG PO (20:33)
[2022-07-05 21:01] LABS: Glucose Point of Care 182 mg/dL (70-110)
[2022-07-05 21:02] LABS: Partial Thromboplastin Time 110.9 SECONDS (23.9-36.7)
[2022-07-05] MEDS: insulin glargine 100 units/1 mL 30 UNIT SUBCUT (22:00)
[2022-07-05] MEDS: insulin lispro 100 unit/1 mL SUBCUT (22:01)
--- NOTE | 2022-07-05 23:10 | PC.NURSE ---
Called and spoke with regarding patient with elevated BPs prior to sheath removal. ordered IV hydralizine to be given prior to sheath removal.
[2022-07-05 23:12] LABS: Partial Thromboplastin Time 39.3 SECONDS (23.9-36.7)
[2022-07-05] MEDS: hyDRALAzine 20 mg/mL INJ 1 mL 10 MG IVP (23:41)
[2022-07-06] VITALS (42 sets, daily range): BP systolic 80–176; BP diastolic 52–80; PULSE 70–87; RESP 15–22; TEMP 36.8–37; O2SAT 94–97
[2022-07-06] MEDS: fentaNYL 50 mcg/mL INJ 2mL IVP (00:07)
--- NOTE | 2022-07-06 00:51 | PC.NURSE ---
The patient was medicated to treat elevated BP and medicated for pain prior to sheath removal. Right groin shealth pulled at 00:31, site was held for 20minutes with manual pressure until homeostasis occurred. No hematoma present. Dry sterile dressing applied. Site is soft to palpation, right lower extremity is warm to the touch and pulses are palpable. Vital signs are within normal limits. The patient denies pain. Educated patient that bedrest with be until 06:30 at which point he will be able to get OOB. The patient verbalized understanding.
[2022-07-06] MEDS: cefTRIAXone 1,000 MG in sodium chloride 0.9% (plus) 50 ML 100 MG IV ×2 (01:28→20:14)
[2022-07-06 03:39] LABS: Alanine Aminotransferase 15 U/L (0-41); Albumin Level 3.3 g/dL (3.5-5.2); Alkaline Phosphatase 76 U/L (40-130); Anion Gap 12.4 (5-19); Aspartate Amino Transferase 16 U/L (0-40); Blood Urea Nitrogen 23 mg/dL (8-23); Calcium 8.5 mg/dL (8.5-10.5); Carbon Dioxide 26 mmol/L (22-29); Chloride 99 mmol/L (98-107); Globulin 3.5 g/dL (1.3-4.6); Glucose 102 mg/dL (65-115); Osmolality Calculated 282 mOsm/kg (285-295); Potassium 3.4 mmol/L (3.5-5.1); Sodium 134 mmol/L (136-145); Total Bilirubin 0.4 mg/dL (0.15-1.2); Total Protein 6.8 g/dL (6.6-8.7)
--- NOTE | 2022-07-06 06:40 | PC.NURSE ---
Bedrest completed at 06:30, patient got OOB to BR. Site was assessed before getting OOB and after. Right groin site is soft, no hematoma present. Right extremity is warm to touch with pedal pulses palpable. Dressing remains dry and intact. The patient denies any pain or discomfort in the cath site.
[2022-07-06] MEDS: gabapentin 400 mg Capsule 800 MG PO (06:44)
[2022-07-06 07:03] LABS: Glucose Point of Care 84 mg/dL (70-110)
--- NOTE | 2022-07-06 08:22 | P.PN_ITS ---
Subjective Subjective: Patient is stable. Denies chest pain. Had balloon angioplasty of the ramus stenosis yesterday Vitals/I&O/Wt Last Vital Signs Temp 98.5 F 07/06/22 07:41 Pulse 73 07/06/22 07:41 Resp 15 07/06/22 07:41 BP 152/80 07/06/22 07:41 Pulse Ox 97 07/06/22 07:41 O2 Del Method 07/06/22 07:41 O2 Flow Rate 3 07/06/22 04:00 07/05/22 07/06/22 07/06/22 22:59 06:59 14:59 Intake Total 650 / 650 Output Total 575 / 575 Balance 75 / 75 Weight last 48 hrs Weight 257 lb 3 oz Weight 270 lb Physical Exam Narrative: GENERAL: Patient is alert, awake and oriented x3. [] NECK: No jugular vein distension. [] HEENT: No cyanosis. No icterus. No pallor. [] HEART: Regular S1 and S2. No murmur, rub or gallop. [] LUNGS: Diminished sounds bilaterally.Has crackles bilaterally CENTRAL NERVOUS SYSTEM: Grossly nonfocal. [] EXTREMITIES: Lower extremities with no edema Data 07/04/22 05:01 07/06/22 02:50 A&P Assessment and plan (1) Elevated troponin: Patient underwent a balloon angioplasty of the ramus intermedius artery yesterday. Continue aspirin and Brilinta. (2) Atherosclerosis of coronary artery of [place] heart without angina pectoris: Patient had residual ramus artery stenosis. Status post successful balloon angioplasty. Stent could not be advanced through left main artery stent struts. Continue aspirin and Brilinta (3) Congestive heart failure: He appears mildly volume overloaded. Restart IV diuretics. Close I&O's. Renal function is stable. Qualifiers: Heart failure chronicity: acute on chronic Heart failure type: combined systolic and diastolic Qualified Code(s): I50.43 - Acute on chronic combined systolic (congestive) and diastolic (congestive) heart failure (4) Essential (primary) hypertension: (5) Diabetes 1.5, managed as type 2: Aggressive management of the diabetes would be appropriate. (6) Peripheral vascular disease, unspecified: Stable (7) Pneumonia: Antibiotic therapy per primary team. Plan We will resume IV diuresis. Thank you for involving us with care of this patient. We will continue to follow. Please call with questions. Attestations Medical Necessity Statement*: Care expected to cross 2 midnights. Coding Level of Care Code Acute Code for Chg Fwd Diagnoses Elevated troponin R77.8 Atherosclerosis of coronary artery of [place] heart without angina pectoris I25.10 Congestive heart failure I50.43 Heart failure chronicity: acute on chronic Heart failure type: combined systolic and diastolic Essential (primary) hypertension I10 Diabetes 1.5, managed as type 2 E13.9 Peripheral vascular disease, unspecified I73.9 Pneumonia J18.9
[2022-07-06] MEDS: insulin glargine 100 units/1 mL 30 UNIT SUBCUT ×2 (08:38→17:34)
[2022-07-06] MEDS: isosorbide mononitrate ER 60 mg Tablet PO (08:42)
[2022-07-06] MEDS: lisinopril 20 mg Tablet PO ×2 (08:43→17:18)
[2022-07-06] MEDS: carvedilol 25 mg Tablet PO ×2 (08:43→17:17)
[2022-07-06] MEDS: ticagrelor 90 mg Tablet PO ×2 (08:44→17:35)
[2022-07-06] MEDS: aspirin 81 mg EC Tablet PO (08:45)
[2022-07-06] MEDS: ipratropium-albuterol 3 mL Neb INHALATION ×4 (08:46→20:28)
[2022-07-06] MEDS: FUROsemide 10 mg/mL SDV 10mL 80 MG IVP ×2 (10:40→17:34)
[2022-07-06 11:53] LABS: Glucose Point of Care 213 mg/dL (70-110)
[2022-07-06] MEDS: insulin lispro 100 unit/1 mL SUBCUT ×3 (12:23→20:13)
--- NOTE | 2022-07-06 13:46 | P.PN_ITS ---
Subjective Subjective: Acute events overnight. Denies any nausea, vomiting, headache. Does complain of stuffy nose and epistaxis which seem to have resolved after putting humidifier to the oxygen. Saturating more than 93% on 3 L. Even after taking the oxygen during examination today he continued to saturate more than 91% but was feeling slightly out of breath. Was able to lie down for the whole procedure yesterday and while groin sheath was present but did feel short of breath overnight. Vitals/I&O/Wt Last Vital Signs Temp 98.5 F 07/06/22 11:19 Pulse 71 07/06/22 11:42 Resp 16 07/06/22 11:37 BP 80/52 07/06/22 11:19 Pulse Ox 96 07/06/22 11:37 O2 Del Method 07/06/22 11:37 O2 Flow Rate 3 07/06/22 11:37 07/05/22 07/06/22 07/06/22 22:59 06:59 14:59 Intake Total 650 / 650 720 / 720 Output Total 575 / 575 100 / 100 Balance 75 / 75 620 / 620 Weight last 48 hrs Weight 116.658 kg Weight 122.47 kg Physical Exam Narrative: Pleasant Const: COMMON NORMALS: patient oriented x3 and alert GENERAL APPEARANCE: cooperative ORIENTATION/CONSCIOUSNESS: Yes awake HENMT: COMMON NORMALS: oropharynx normal Neck/C-Spine: COMMON NORMALS: no JVD Resp: COMMON NORMALS: normal respiratory effort AUSCULTATION: diminished lung sounds Cardio: COMMON NORMALS: no JVD, regular rhythm, S1 normal heart sound present, S2 normal heart sound present and No murmurs present (Cardio) RHYTHM: regular rhythm HEART SOUNDS: S1 normal heart sound present and S2 normal heart sound present GI: COMMON NORMALS: Normal to inspection, nondistended, normoactive bowel sounds present, Soft to palpation and non-tender PALPATION: Yes Soft to palpation Extremity: COMMON NORMALS: no joint enlargement and no pedal edema OTHER: Left ankle without deformity. No open wounds. Neuro: COMMON NORMALS: patient oriented x3 and moves all extremities SENSORIUM/ORIENTATION: Yes alert Skin: COMMON NORMALS: no rashes or lesions noted GENERAL SKIN EXAM: no rashes or lesions noted Data 07/04/22 05:01 07/06/22 02:50 A&P Assessment and plan (1) Hypoxia: Secondary to a combination of mixed systolic and diastolic congestive heart failure along with COPD exacerbation in setting of bilateral pneumonia. (2) Pneumonia: Follow-up sputum culture. For now continue with ceftriaxone and finish 7-day course. Last dose on 07/07. Urine Legionella, bacterial antigen negative. Azithromycin stopped after 3 days. Blood cultures so far negative. Budesonide twice daily, DuoNebs every 6 hour. Wean down oxygen supplementation keeping saturation over 90%. At baseline not on oxygen. (3) Congestive heart failure: Mixed systolic and diastolic congestive heart failure. Echocardiogram done shows an EF of 50% with regional wall motion abnormality. Continue with IV Lasix 80 mg twice daily. Monitor for contraction alkalosis. Strict input output charting, daily weights. Qualifiers: Heart failure chronicity: acute on chronic Heart failure type: combined systolic and diastolic Qualified Code(s): I50.43 - Acute on chronic combined systolic (congestive) and diastolic (congestive) heart failure (4) CAD (coronary artery disease): Post PCI to LAD in August for ST elevation [place]. Patient underwent cardiac angiogram on 07/05. Tolerated procedure well. As stent could not be crossed through the previously placed stent he underwent balloon angioplasty. Appreciate nephrology recommendations. Currently chest pain-free. Continue with aspirin, Brilinta, statin. Switch from full dose Lovenox to prophylactic Lovenox today. (5) Chronic kidney disease, stage 1: (6) Diabetes 1.5, managed as type 2: (7) Essential (primary) hypertension: Goal blood pressure less than 140/90 mmHg. Blood pressure stable. Continue with Coreg 25 mg twice daily, Imdur 60 mg daily, lisinopril 20 mg twice daily. Hold off on any further hydralazine. (8) Stented coronary artery: (9) Elevated troponin: (10) Peripheral vascular disease, unspecified: Plan Full code DVT prophylaxis: Therapeutic Lovenox will also suffice for DVT prophylaxis. Diet: Cardiac consistent carbohydrate Discharge planning: Plan to discharge home with caregiver once medically stable. Will need home O2 eval prior to discharge. Attestations Medical Necessity Statement*: Requires further hospitalization for management of hypoxia secondary to congestive heart failure in setting of CAD/non-ST elevation [place] post balloon angioplasty, uncontrolled hypertension Time Spent in Patient Care: Greater than 35 minutes Coding Level of Care Code Acute Code for [facility] Diagnoses Hypoxia R09.02 Pneumonia J18.9 Congestive heart failure I50.43 Heart failure chronicity: acute on chronic Heart failure type: combined systolic and diastolic CAD (coronary artery disease) I25.10 Chronic kidney disease, stage 1 N18.1 Diabetes 1.5, managed as type 2 E13.9 Essential (primary) hypertension I10 Stented coronary artery Z95.5 Elevated troponin R77.8 Peripheral vascular disease, unspecified I73.9
[2022-07-06 16:24] LABS: Glucose Point of Care 211 mg/dL (70-110)
[2022-07-06] MEDS: gabapentin 400 mg Capsule 1600 MG PO (17:09)
[2022-07-06 20:12] LABS: Glucose Point of Care 238 mg/dL (70-110)
[2022-07-06] MEDS: acetaminophen 325 mg Tablet 650 MG PO (20:19)
[2022-07-07] VITALS (12 sets, daily range): BP systolic 114–137; BP diastolic 59–72; PULSE 64–84; RESP 16–20; TEMP 36.7–36.9; O2SAT 90–98
[2022-07-07 04:50] LABS: Alanine Aminotransferase 18 U/L (0-41); Albumin Level 3.2 g/dL (3.5-5.2); Alkaline Phosphatase 84 U/L (40-130); Anion Gap 14.7 (5-19); Aspartate Amino Transferase 19 U/L (0-40); Blood Urea Nitrogen 31 mg/dL (8-23); Calcium 8.4 mg/dL (8.5-10.5); Carbon Dioxide 26 mmol/L (22-29); Chloride 100 mmol/L (98-107); Globulin 3.7 g/dL (1.3-4.6); Glucose 51 mg/dL (65-115); Osmolality Calculated 288 mOsm/kg (285-295); Potassium 3.7 mmol/L (3.5-5.1); Sodium 137 mmol/L (136-145); Total Bilirubin 0.3 mg/dL (0.15-1.2); Total Protein 6.9 g/dL (6.6-8.7)
[2022-07-07] MEDS: gabapentin 400 mg Capsule 800 MG PO (05:24)
[2022-07-07 07:03] LABS: Glucose Point of Care 73 mg/dL (70-110)
[2022-07-07] MEDS: ipratropium-albuterol 3 mL Neb INHALATION ×4 (08:05→20:49)
[2022-07-07] MEDS: FUROsemide 10 mg/mL SDV 10mL 80 MG IVP (09:10)
[2022-07-07] MEDS: ticagrelor 90 mg Tablet PO ×2 (09:11→17:22)
[2022-07-07] MEDS: carvedilol 25 mg Tablet PO ×2 (09:11→17:22)
[2022-07-07] MEDS: aspirin 81 mg EC Tablet PO (09:11)
[2022-07-07] MEDS: isosorbide mononitrate ER 60 mg Tablet PO (09:13)
[2022-07-07] MEDS: insulin glargine 100 units/1 mL 30 UNIT SUBCUT ×2 (09:13→18:37)
[2022-07-07] MEDS: lisinopril 20 mg Tablet PO ×2 (09:13→17:22)
--- NOTE | 2022-07-07 11:53 | PM.PN ---
Subjective Subjective: Berry is 72 and was admitted 8 days ago on the sixth with pneumonia and heart failure. He has a long list of chronic medical problems including diabetes, coronary disease, myocardial infarction's, chronic kidney disease, hypertension, peripheral arterial disease, prior tobacco abuse, history of COVID. He has been struggling in the hospital with shortness of breath and respiratory insufficiency. 2 days ago he underwent cardiac catheterization. His ramus intermedius artery, which is jailed by a stent or series of stents that go from the left main down to the LAD and beyond, underwent balloon angioplasty. A stent could not be placed through the tines of the existing stent in the distal left main, ostial LAD. He has been doing well in this regard. His main difficulties continue to be shortness of breath due to underlying pneumonitis and chronic heart failure. Vitals/I&O/Wt Last Vital Signs Temp 98.6 F 07/06/22 15:18 Pulse 78 07/07/22 11:36 Resp 18 07/07/22 11:36 BP 137/72 07/07/22 11:17 Pulse Ox 90 07/07/22 11:36 O2 Del Method 07/07/22 11:36 O2 Flow Rate 2 07/07/22 11:36 FiO2 2 07/06/22 23:20 07/06/22 07/07/22 07/07/22 22:59 06:59 14:59 Intake Total 770 / 1490 120 / 1610 360 / 360 Output Total 600 / 700 300 / 1000 380 / 380 Balance 170 / 790 -180 / 610 -20 / -20 Weight last 48 hrs Weight 257 lb 9.6 oz Weight 257 lb 3 oz Physical Exam Narrative: GENERAL: Mildly short of breath at rest sitting upright with a breathing treatment in place HEENT: Exam within normal limits. NECK: Supple without jugular vein distention. The carotid upstroke is normal without bruits. BACK: Exam normal. LUNGS: Clear. HEART: Regular rate and rhythm. ABDOMEN: Benign without organomegaly or tenderness. EXTREMITIES: No edema. NEUROLOGIC: Exam normal. SKIN: Unremarkable. Data 07/04/22 05:01 07/07/22 03:05 A&P Assessment and plan (1) Hypoxia: (2) Atherosclerosis of coronary artery of [place] heart without angina pectoris: (3) Elevated troponin: (4) Stented coronary artery: (5) CAD (coronary artery disease): (6) Peripheral vascular disease, unspecified: (7) Essential (primary) hypertension: (8) Diabetes 1.5, managed as type 2: (9) Atherosclerosis of coronary artery: (10) COVID-19: (11) Respiratory failure: (12) Congestive heart failure: Qualifiers: Heart failure chronicity: acute on chronic Heart failure type: combined systolic and diastolic Qualified Code(s): I50.43 - Acute on chronic combined systolic (congestive) and diastolic (congestive) heart failure (13) Acute myocardial infarction: (14) Chronic kidney disease, stage 1: (15) History of amputation of great toe: Plan Continue medical therapy for underlying organic heart disease. He is on Brilinta, antibiotics, DAYDAY inhibitor, Coreg, long-acting nitrate and is getting high-dose Lasix twice daily intravenously. Attestations Medical Necessity Statement*: Continued hospitalization for management of underlying heart failure and organic heart disease. Coding Level of Care Code Acute Code for [facility] Fwd History Comprehensive Exam Comprehensive Medical Decision Making High Complexity Diagnoses Hypoxia R09.02 Atherosclerosis of coronary artery of [place] heart without angina pectoris I25.10 Elevated troponin R77.8 Stented coronary artery Z95.5 CAD (coronary artery disease) I25.10 Peripheral vascular disease, unspecified I73.9 Essential (primary) hypertension I10 Diabetes 1.5, managed as type 2 E13.9 Atherosclerosis of coronary artery I25.10 COVID-19 U07.1 Respiratory failure J96.90 Congestive heart failure I50.43 Heart failure chronicity: acute on chronic Heart failure type: combined systolic and diastolic Acute myocardial infarction I21.9 Chronic kidney disease, stage 1 N18.1 History of amputation of great toe Z89.419
[2022-07-07 12:10] LABS: Glucose Point of Care 196 mg/dL (70-110)
--- NOTE | 2022-07-07 13:54 | PM.PN ---
Subjective Subjective: Reports feeling better today. Has been able to eat some. Feels he is breathing better. Oxygen requirement is down to 2L per nursing. Denies chest pain, continues to feel a little short of breath when lying down. Medications: Reviewed: Yes Vitals/I&O/Wt Last Vital Signs Temp 98.1 F 07/07/22 11:59 Pulse 79 07/07/22 12:00 Resp 18 07/07/22 11:58 BP 117/59 07/07/22 12:00 Pulse Ox 92 07/07/22 11:58 O2 Del Method 07/07/22 11:36 O2 Flow Rate 2 07/07/22 11:58 FiO2 2 07/06/22 23:20 07/06/22 07/07/22 07/07/22 22:59 06:59 14:59 Intake Total 770 / 1490 120 / 1610 360 / 360 Output Total 600 / 700 300 / 1000 780 / 780 Balance 170 / 790 -180 / 610 -420 / -420 Weight last 48 hrs Weight 257 lb 9.6 oz Weight 257 lb 3 oz Physical Exam Narrative: GENERAL: Mild dyspnea with activity and while sitting up. Able to speak in complete sentences. HEENT: Exam within normal limits. NECK: No JVD or bruits. No thyromegaly. BACK: Exam normal. LUNGS: Mild crackles throughout the lung doss. No wheezes or rhonchi. HEART: Regular rate and rhythm. ABDOMEN: Soft, nontender, nondistended. Normal bowel sounds to 4 quadrants. EXTREMITIES: No edema. NEUROLOGIC: Exam normal. A/O x4. SKIN: Unremarkable. Data 07/04/22 05:01 07/07/22 03:05 A&P Assessment and plan (1) Hypoxia: (2) Pneumonia: (3) Essential (primary) hypertension: (4) Atherosclerosis of coronary artery: (5) COVID-19: (6) Congestive heart failure: Qualifiers: Heart failure chronicity: acute on chronic Heart failure type: combined systolic and diastolic Qualified Code(s): I50.43 - Acute on chronic combined systolic (congestive) and diastolic (congestive) heart failure (7) Chronic kidney disease, stage 1: Plan (1) Hypoxia: Secondary to a combination of mixed systolic and diastolic congestive heart failure along with COPD exacerbation in setting of bilateral pneumonia. He remains slightly hypoxic requiring supplemental oxygen, currently 2 L. Will evaluate for Home O2 prior to discharge. (2) Pneumonia: Sputum cultures currently showing normal kassandra, moderate amount. Legionella negative. Blood cultures negative. For now continue with ceftriaxone and finish 7-day course.? Last dose on 07/07 and will discontinue. Budesonide twice daily, DuoNebs every 6 hour. Continue supplemental oxygen to keep saturation greater than 90%. (3) Congestive heart failure: systolic (congestive) and diastolic (congestive) heart failure Mixed systolic and diastolic congestive heart failure. Echocardiogram done shows an EF of 50% with regional wall motion abnormality. Continue with IV Lasix. He has had steady elevation of his BUN, which may indicate early contraction alkalosis. We will decrease his dose to 40 mg twice daily, and continue to taper as he is clinically improving. Continue potassium supplementation with diuretics. Strict input output charting, daily weights. (4) CAD (coronary artery disease): Post PCI to LAD in August for ST elevation [place]. Patient underwent cardiac angiogram on 07/05.? Tolerated procedure well.? As stent could not be crossed through the previously placed stent he underwent balloon angioplasty. Continue with aspirin, Brilinta, statin. Continue DVT PPx with Lovenox. (5) Chronic kidney disease, stage 1: (6) Diabetes 1.5, managed as type 2: (7) Essential (primary) hypertension: Goal blood pressure less than 140/90 mmHg. Blood pressure stable. Continue with Coreg 25 mg twice daily, Imdur 60 mg daily, lisinopril 20 mg twice daily. (8) Stented coronary artery: (9) Elevated troponin: (10) Peripheral vascular disease, unspecified: Plan Full code DVT prophylaxis: Lovenox Diet: Cardiac consistent carbohydrate Discharge planning: Plan to discharge home with caregiver once medically stable.? Will need home O2 eval prior to discharge. Attestations Medical Necessity Statement*: Requires further hospitalization for management of hypoxia secondary to congestive heart failure in setting of CAD/non-ST elevation [place] post balloon angioplasty, uncontrolled hypertension Time Spent in Patient Care: Greater than 35 minutes Coding Level of Care Code Acute Code for [facility] Fwd Diagnoses Hypoxia R09.02 Pneumonia J18.9 Essential (primary) hypertension I10 Atherosclerosis of coronary artery I25.10 COVID-19 U07.1 Congestive heart failure I50.43 Heart failure chronicity: acute on chronic Heart failure type: combined systolic and diastolic Chronic kidney disease, stage 1 N18.1
[2022-07-07] MEDS: insulin lispro 100 unit/1 mL SUBCUT ×3 (14:49→21:28)
[2022-07-07] MEDS: FUROsemide 10 mg/mL SDV 4mL 40 MG IVP (17:22)
[2022-07-07] MEDS: gabapentin 400 mg Capsule 1600 MG PO (17:22)
[2022-07-07 17:33] LABS: Glucose Point of Care 279 mg/dL (70-110)
[2022-07-07 21:20] LABS: Glucose Point of Care 183 mg/dL (70-110)
[2022-07-08] VITALS (23 sets, daily range): BP systolic 108–187; BP diastolic 54–89; PULSE 61–96; RESP 15–24; TEMP 36.8–37; O2SAT 91–96
[2022-07-08] MEDS: FUROsemide 10 mg/mL SDV 4mL 40 MG IVP ×2 (01:03→13:17)
[2022-07-08 01:58] LABS: Glucose Point of Care 42 mg/dL (70-110)
[2022-07-08 01:58] LABS: Glucose Point of Care 39 mg/dL (70-110)
[2022-07-08 01:58] LABS: Glucose Point of Care 192 mg/dL (70-110)
--- NOTE | 2022-07-08 02:00 | PC.NURSE ---
Patient requested a snack at 00:55 and was given praveena crackers and peanut butter. Patient rang again and stated he felt like his blood glucose might be dropping, he had already ate 2 packs of cracker and peanut butter. At 1:08 his blood glucose was found to be 42, the patient was given 3 glasses of orange juice and two more packets of crackers with peanut butter. Blood glucose was checked again at 1:22 and was found to be 39, the patient was becoming more lethargic. The patient was given an 50ml of dextrose per protocol. Rechecked Blood glucose at 1:48 was 192, the patient states he was starting to feel better. Messaged regarding the drop in blood sugar, the patient received high dose coverage 8units at bedtime for Blood glucose of 183. changed coverage to low dose as patients bllod glucose was low with 07/07 morning labs as well.
[2022-07-08] MEDS: gabapentin 400 mg Capsule 800 MG PO (06:25)
[2022-07-08 06:32] LABS: Glucose Point of Care 223 mg/dL (70-110)
[2022-07-08] MEDS: ipratropium-albuterol 3 mL Neb INHALATION ×4 (08:31→22:06)
--- NOTE | 2022-07-08 09:28 | PM.PN ---
Subjective Subjective: Berry is doing well this morning. He still has a productive cough. Still mildly short of breath. Vitals/I&O/Wt Last Vital Signs Temp 98.3 F 07/08/22 07:30 Pulse 89 07/08/22 08:39 Resp 18 07/08/22 08:00 BP 187/84 07/08/22 07:00 Pulse Ox 94 07/08/22 08:00 O2 Del Method 07/08/22 08:00 O2 Flow Rate 2 07/08/22 08:00 FiO2 2 07/06/22 23:20 07/07/22 07/08/22 07/08/22 22:59 06:59 14:59 Intake Total 600 / 960 410 / 1370 Output Total 700 / 1480 225 / 1705 Balance -100 / -520 185 / -335 Weight last 48 hrs Weight 255 lb 6 oz Weight 257 lb 9.6 oz Physical Exam Narrative: GENERAL: General he is awake and alert, talkative and without distress at rest HEENT: Exam within normal limits. NECK: Supple without jugular vein distention. The carotid upstroke is normal without bruits. BACK: Exam normal. LUNGS: Clear. HEART: Regular rate and rhythm. ABDOMEN: Benign without organomegaly or tenderness. EXTREMITIES: No edema. NEUROLOGIC: Exam normal. SKIN: Unremarkable. Data 07/04/22 05:01 07/08/22 09:16 A&P Assessment and plan (1) Hypoxia: (2) Atherosclerosis of coronary artery of [place] heart without angina pectoris: (3) Elevated troponin: (4) Stented coronary artery: (5) CAD (coronary artery disease): (6) Pneumonia: (7) Peripheral vascular disease, unspecified: (8) Essential (primary) hypertension: (9) Diabetes 1.5, managed as type 2: (10) COVID-19: (11) Respiratory failure: (12) Congestive heart failure: Qualifiers: Heart failure chronicity: acute on chronic Heart failure type: combined systolic and diastolic Qualified Code(s): I50.43 - Acute on chronic combined systolic (congestive) and diastolic (congestive) heart failure (13) Chronic kidney disease, stage 1: Plan No changes today. Continue medical therapy. Heart failure appears compensated. Heart rate is stable and rhythm is sinus. Attestations Medical Necessity Statement*: Continued hospitalization required for management of pneumonia, congestive heart failure, coronary disease, diabetes. Coding Level of Care Code Established Pt Acute Code for [facility] Fwd Patient Type Established History Detailed Exam Detailed Medical Decision Making Moderate Complexity Diagnoses Hypoxia R09.02 Atherosclerosis of coronary artery of [place] heart without angina pectoris I25.10 Elevated troponin R77.8 Stented coronary artery Z95.5 CAD (coronary artery disease) I25.10 Pneumonia J18.9 Peripheral vascular disease, unspecified I73.9 Essential (primary) hypertension I10 Diabetes 1.5, managed as type 2 E13.9 COVID-19 U07.1 Respiratory failure J96.90 Congestive heart failure I50.43 Heart failure chronicity: acute on chronic Heart failure type: combined systolic and diastolic Chronic kidney disease, stage 1 N18.1
[2022-07-08 09:44] LABS: Alanine Aminotransferase 21 U/L (0-41); Albumin Level 3.1 g/dL (3.5-5.2); Alkaline Phosphatase 87 U/L (40-130); Anion Gap 12.9 (5-19); Aspartate Amino Transferase 20 U/L (0-40); Blood Urea Nitrogen 30 mg/dL (8-23); Calcium 8.6 mg/dL (8.5-10.5); Carbon Dioxide 26 mmol/L (22-29); Chloride 92 mmol/L (98-107); Glucose 304 mg/dL (65-115); Osmolality Calculated 282 mOsm/kg (285-295); Potassium 3.9 mmol/L (3.5-5.1); Sodium 127 mmol/L (136-145); Total Bilirubin 0.5 mg/dL (0.15-1.2); Total Protein 7.1 g/dL (6.6-8.7)
[2022-07-08] MEDS: insulin lispro 100 unit/1 mL SUBCUT ×4 (10:33→21:39)
[2022-07-08] MEDS: aspirin 81 mg EC Tablet PO (10:34)
[2022-07-08] MEDS: enoxaparin 40 mg/0.4 mL Syringe SUBCUT (10:34)
[2022-07-08] MEDS: isosorbide mononitrate ER 60 mg Tablet PO (10:35)
[2022-07-08] MEDS: potassium chloride ER 20 mEq Tablet PO (10:35)
[2022-07-08] MEDS: ticagrelor 90 mg Tablet PO ×2 (10:35→17:27)
[2022-07-08] MEDS: lisinopril 20 mg Tablet PO ×2 (10:35→17:28)
[2022-07-08] MEDS: carvedilol 25 mg Tablet PO ×2 (10:36→17:28)
[2022-07-08] MEDS: insulin glargine 100 units/1 mL 30 UNIT SUBCUT ×2 (10:44→17:28)
[2022-07-08 11:19] LABS: Glucose Point of Care 269 mg/dL (70-110)
[2022-07-08 16:24] LABS: Glucose Point of Care 278 mg/dL (70-110)
[2022-07-08] MEDS: gabapentin 400 mg Capsule 1600 MG PO (17:27)
--- NOTE | 2022-07-08 18:19 | P.PN_ITS ---
Subjective Subjective: Reports doing ok at this time. Still having episodes of dyspnea. Feels very weak, but has been walking short distances in the room. He is able to get up and use the BSC some. Says that he is less short of breath when lying flat, but still having symptoms. Denies other concerns at this time. Medications: Reviewed: Yes Vitals/I&O/Wt Last Vital Signs Temp 98.3 F 07/08/22 07:30 Pulse 71 07/08/22 16:10 Resp 18 07/08/22 16:10 BP 142/70 07/08/22 12:00 Pulse Ox 93 07/08/22 16:10 O2 Del Method 07/08/22 16:10 O2 Flow Rate 2 07/08/22 11:27 FiO2 2 07/08/22 16:10 07/08/22 07/08/22 07/08/22 06:59 14:59 22:59 Intake Total 410 / 1370 660 / 660 Output Total 225 / 1705 325 / 325 Balance 185 / -335 335 / 335 Weight last 48 hrs Weight 255 lb 6 oz Weight 257 lb 9.6 oz Physical Exam Narrative: GENERAL: Mild dyspnea with activity and while sitting up. Able to speak in complete sentences. HEENT: Exam within normal limits. NECK: No JVD or bruits. No thyromegaly. BACK: Exam normal. LUNGS: Mild crackles throughout the lung doss. No wheezes or rhonchi. HEART: Regular rate and rhythm. ABDOMEN: Soft, nontender, nondistended. Normal bowel sounds to 4 quadrants. EXTREMITIES: No edema. NEUROLOGIC: Exam normal. A/O x4. SKIN: Unremarkable. Data 07/04/22 05:01 07/08/22 09:16 A&P Assessment and plan (1) Hypoxia: (2) Pneumonia: (3) Essential (primary) hypertension: (4) Atherosclerosis of coronary artery: (5) COVID-19: (6) Congestive heart failure: Qualifiers: Heart failure chronicity: acute on chronic Heart failure type: combined systolic and diastolic Qualified Code(s): I50.43 - Acute on chronic combined systolic (congestive) and diastolic (congestive) heart failure (7) Chronic kidney disease, stage 1: Plan 72-year-old male admitted for dyspnea, hypoxia, pneumonia, exacerbation of heart failure. - Continue close inpatient monitoring - Cardiology is consulted and following. Appreciate their recommendations - Oxygen saturation is stable on 2 L of oxygen with sats greater than 90%. - Blood cultures, Legionella, bacterial antigens were all negative. He has completed a 7-day course of ceftriaxone and this has been discontinued. - We will continue his budesonide and duo nebs. RAAT. - His Lasix was cut down to 40 mg IV twice daily. We will continue to titrate down as tolerated. He continues to have good urine output. We will monitor his labs during this titration. - For his CAD, we will continue medical management. He is on aspirin, Brilinta, statin. He is on Lovenox for DVT prophylaxis. - We will continue to monitor blood pressures. Continue Coreg, Imdur, lisinopril. - Plan is to discharge home in the next 1 to 2 days. Will discuss with cardiology for any concerns prior to discharge. - Patient is not interested in going to SNF for rehab at this time. He has discussed with his , and they are confident they can manage at home. - Arrange for Home O2 eval prior to discharge. Code Status: Full code DVT prophylaxis: Lovenox Diet: Cardiac consistent carbohydrate GI PPx: None Discharge planning: Plan to discharge home with caregiver once medically stable.? Will need home O2 eval prior to discharge. Attestations Medical Necessity Statement*: Continued hospitalization required for management of pneumonia, congestive heart failure, coronary disease, diabetes. Coding Level of Care Code Acute Code for [facility] Fwd Diagnoses Hypoxia R09.02 Pneumonia J18.9 Essential (primary) hypertension I10 Atherosclerosis of coronary artery I25.10 COVID-19 U07.1 Congestive heart failure I50.43 Heart failure chronicity: acute on chronic Heart failure type: combined systolic and diastolic Chronic kidney disease, stage 1 N18.1
[2022-07-08 21:18] LABS: Glucose Point of Care 223 mg/dL (70-110)
[2022-07-09] VITALS (7 sets, daily range): BP systolic 140–161; BP diastolic 70–72; PULSE 73–84; RESP 16–19; TEMP 36.6–36.7; O2SAT 91–96
[2022-07-09] MEDS: FUROsemide 10 mg/mL SDV 4mL 40 MG IVP (02:33)
[2022-07-09] MEDS: gabapentin 400 mg Capsule 800 MG PO (06:19)
[2022-07-09 06:54] LABS: Glucose Point of Care 114 mg/dL (70-110)
[2022-07-09] MEDS: ipratropium-albuterol 3 mL Neb INHALATION ×2 (08:19→11:40)
--- NOTE | 2022-07-09 08:25 | PM.PN ---
Subjective Subjective: Patient says he is feeling much better. No complaints of chest pain. No significant shortness of breath. Currently on room air. Patient wants to be discharged home today. Vitals/I&O/Wt Last Vital Signs Temp 97.9 F 07/09/22 07:15 Pulse 79 07/09/22 08:00 Resp 18 07/09/22 08:00 BP 148/72 07/09/22 07:15 Pulse Ox 93 07/09/22 08:00 O2 Del Method 07/09/22 08:00 O2 Flow Rate 2 07/09/22 04:00 FiO2 2 07/08/22 22:08 07/08/22 07/09/22 07/09/22 22:59 06:59 14:59 Intake Total 420 / 1080 120 / 1200 Output Total 800 / 1125 1000 / 2125 Balance -380 / -45 -880 / -925 Weight last 48 hrs Weight 257 lb 6 oz Weight 255 lb 6 oz Physical Exam Narrative: GENERAL: Patient is alert, awake and oriented x3. [] NECK: No jugular vein distension. [] HEENT: No cyanosis. No icterus. No pallor. [] HEART: Regular S1 and S2. No murmur, rub or gallop. [] LUNGS: Diminished sounds bilaterally.Has crackles bilaterally CENTRAL NERVOUS SYSTEM: Grossly nonfocal. [] EXTREMITIES: Lower extremities with no edema Data 07/04/22 05:01 07/08/22 09:16 A&P Assessment and plan (1) Elevated troponin: Patient underwent a balloon angioplasty of the ramus intermedius artery. Continue aspirin and Brilinta. (2) Atherosclerosis of coronary artery of [place] heart without angina pectoris: Patient had residual ramus artery stenosis. Status post successful balloon angioplasty. Stent could not be advanced through left main artery stent struts. Continue aspirin and Brilinta (3) Congestive heart failure: Patient's congestive heart failure symptoms are improved but still has crackles. He wants to go home.Can be switched to lasix 40mg BID PO. Will need outpatient BMP/NT proBNP in 1 week Low sodium diet and fluid restriction advised. Patient also advised to weigh himself daily and adjust diuretics based on that. Qualifiers: Heart failure chronicity: acute on chronic Heart failure type: combined systolic and diastolic Qualified Code(s): I50.43 - Acute on chronic combined systolic (congestive) and diastolic (congestive) heart failure (4) Essential (primary) hypertension: (5) Diabetes 1.5, managed as type 2: Aggressive management of the diabetes would be appropriate. (6) Peripheral vascular disease, unspecified: Stable (7) Pneumonia: Antibiotic therapy per primary team. Plan Can be switched to PO lasix 40mg BID. Thank you for involving us with care of this patient. Please call with questions. Attestations Medical Necessity Statement*: Care expected to cross 2 midnights. Coding Level of Care Code Acute Code for [facility] Fwd Diagnoses Elevated troponin R77.8 Atherosclerosis of coronary artery of [place] heart without angina pectoris I25.10 Congestive heart failure I50.43 Heart failure chronicity: acute on chronic Heart failure type: combined systolic and diastolic Essential (primary) hypertension I10 Diabetes 1.5, managed as type 2 E13.9 Peripheral vascular disease, unspecified I73.9 Pneumonia J18.9
[2022-07-09] MEDS: aspirin 81 mg EC Tablet PO (09:44)
[2022-07-09] MEDS: carvedilol 25 mg Tablet PO (09:44)
[2022-07-09] MEDS: lisinopril 20 mg Tablet PO (09:44)
[2022-07-09] MEDS: ticagrelor 90 mg Tablet PO (09:44)
[2022-07-09] MEDS: potassium chloride ER 20 mEq Tablet PO (09:44)
[2022-07-09] MEDS: isosorbide mononitrate ER 60 mg Tablet PO (09:44)
[2022-07-09 10:06] LABS: NT Pro B Type Natriuretic Pept 804 pg/mL (0-125)
--- NOTE | 2022-07-09 10:36 | P.DS_ITS ---
Discharge Providers Date of Admission: 06/29/22 22:47 Date of Discharge: July 09, 2022 Attending Provider at Admission: Rina Alejo MD Attending Provider at Discharge: Dc Arreaga Primary Care Provider: Fiona Stevens MD Diagnoses at Discharge Discharge Diagnosis (1) Elevated troponin: Status: Acute (2) Atherosclerosis of coronary artery of [place] heart without angina pectoris: Status: Acute (3) Congestive heart failure: Status: Acute Qualifiers: Heart failure chronicity: acute on chronic Heart failure type: combined systolic and diastolic Qualified Code(s): I50.43 - Acute on chronic combined systolic (congestive) and diastolic (congestive) heart failure (4) Essential (primary) hypertension: Status: Acute (5) Diabetes 1.5, managed as type 2: Status: Acute (6) Peripheral vascular disease, unspecified: Status: Acute (7) Pneumonia: Status: Acute Reason for Visit Reason for Visit: sob Hospital Course Hospital Course Pleasant 72-year-old gentleman with history of three-vessel CAD, prior stenting in July 2021 was admitted for assessment of management due to pneumonia, with hypoxia, as well as in acute CHF exacerbation with preserved ejection fraction, with concern for additional CAD needing treatment given prior plans for staged procedure back in July at [facility]. With treatment of pneumonia, optimization of volume status is respiratory condition improved. He weaned down on oxygen requirement, was able to lie down flat. Underwent coronary angiogram with balloon angioplasty of ramus intermedius as stent could not be advanced due to presence of prior stents. He is to continue on aspirin, Brilinta. Carvedilol dose has been increased to 25 mg twice daily. His Lasix dose is increased to 40 mg twice daily currently he is to continue on 1500 mL fluid restriction. He knows to return to the hospital in case of worsening condition. He is to follow-up in office including with cardiology. Home oxygen evaluation is obtained prior to discharge. With difficulties with ambulation with chronic issues with left ankle, as well as exertional dyspnea may benefit from chairlift to lower level of his home. Physical Exam Narrative: Up in chair. Const: COMMON NORMALS: patient oriented x3 and alert GENERAL APPEARANCE: cooperative ORIENTATION/CONSCIOUSNESS: Yes awake OTHER: Eye patch on left eye. HENMT: COMMON NORMALS: oropharynx normal Neck/C-Spine: COMMON NORMALS: no JVD Resp: COMMON NORMALS: normal respiratory effort OTHER: Mild crackles at bases L>R Cardio: COMMON NORMALS: no JVD, regular rhythm, S1 normal heart sound present, S2 normal heart sound present and No murmurs present (Cardio) RHYTHM: regular rhythm HEART SOUNDS: S1 normal heart sound present and S2 normal heart sound present GI: COMMON NORMALS: Normal to inspection, nondistended, normoactive bowel sounds present, Soft to palpation and non-tender PALPATION: Yes Soft to palpation Extremity: COMMON NORMALS: no joint enlargement and no pedal edema OTHER: Left ankle without deformity. No open wounds. Neuro: COMMON NORMALS: patient oriented x3 and moves all extremities SENSORIUM/ORIENTATION: Yes alert Skin: COMMON NORMALS: no rashes or lesions noted GENERAL SKIN EXAM: no rashes or lesions noted Discharge Data Studies Completed and Pending Completed Studies During Hospitalization Category Date Time Status CTA chest [CT angio chest PE protcl [id number]] Stat Cat Scan 06/29/22 21:27 Completed XR chest 1V portable [id number] Routine Exams 07/03/22 06:15 Completed XR chest 1V portable [id number] Stat Exams 06/29/22 20:20 Completed CV. 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 There is bilateral lower lobe lung consolidation consistent with atelectasis and/or pneumonia. There is bilateral interstitial lung disease and also ground-glass lung opacification suggestive of pulmonary edema. There are small pleural effusions. Chest X-Ray 07/03/22 06:15 IMPRESSION: Improved pulmonary edema. Persistent left basilar airspace opacity may reflect atelectasis versus pneumonia. Laboratory Results WBC 5.2 10^3/uL (4.0-10.0) 07/04/22 05:01 RBC 4.84 10^6/uL (4.1-5.3) 07/04/22 05:01 Hgb 14.7 g/dL (11.7-16.6) 07/04/22 05:01 Hct 45.8 % (42.0-52.0) 07/04/22 05:01 MCV 94.6 fl (80-94) H 07/04/22 05:01 MCH 30.4 pg (28.0-34.0) 07/04/22 05:01 MCHC 32.1 g/dL (30.0-36.0) 07/04/22 05:01 RDW 12.7 % (12.1-15.1) 07/04/22 05:01 Plt Count 177 10^3/cmm (130-400) 07/04/22 05:01 MPV 11.2 fL (7.4-10.4) H 07/04/22 05:01 Neut % (Auto) 51.9 % 07/04/22 05:01 Lymph % (Auto) 28.2 % 07/04/22 05:01 [place] % (Auto) 17.9 % 07/04/22 05:01 Eos % (Auto) 1.0 % 07/04/22 05:01 Baso % (Auto) 0.2 % 07/04/22 05:01 Neut # (Auto) 2.72 10^3/uL (1.8-7.7) 07/04/22 05:01 Lymph # (Auto) 1.5 10^3/uL (0.8-4.8) 07/04/22 05:01 [place] # (Auto) 0.9 10^3/uL (0.2-0.9) 07/04/22 05:01 Eos # (Auto) 0.1 10^3/uL (0.0-0.8) 07/04/22 05:01 Baso # (Auto) 0.0 10^3/uL (0.0-0.1) 07/04/22 05:01 Nucleated RBC % (auto) 0 % 07/04/22 05:01 Nucleated RBCs # 0.0 /100WBC 07/04/22 05:01 APTT 39.3 SECONDS (23.9-36.7) H D 07/05/22 22:25 D-Dimer 0.80 ug/mIFEU (0-0.59) H 06/29/22 20:14 Specimen Type Arterial 06/29/22 20:50 Sample Site Radial, right 06/29/22 20:50 ABG pH 7.40 (7.35-7.45) 06/29/22 20:50 ABG pCO2 40.6 mmHg (35-45) 06/29/22 20:50 ABG pO2 73.4 mmHg (80.0-100.0) L 06/29/22 20:50 ABG HCO3 25.0 mmol/L (22-26) 06/29/22 20:50 ABG Base Excess 0.1 mmol/L (-2.0-2.0) 06/29/22 20:50 Axel Test Pos 06/29/22 20:50 Hematocrit 48.2 % (42-52) 06/29/22 20:50 Hgb O2 Saturation 94.0 % (95-100) L 06/29/22 20:50 Carboxyhemoglobin 1.3 %THgb (0.4-20.1) 06/29/22 20:50 Methemoglobin 0.3 % (0.4-1.5) L 06/29/22 20:50 Total Hemoglobin 15.7 g/dL (14-18) 06/29/22 20:50 O2 Delivery Device Nc 06/29/22 20:50 O2 Liters/Min 5.0 % 06/29/22 20:50 Air Twister Winder ID Hinja 06/29/22 20:50 Sodium 127 mmol/L (136-145) L 07/08/22 09:16 Potassium 3.9 mmol/L (3.5-5.1) 07/08/22 09:16 Chloride 92 mmol/L (98-107) L 07/08/22 09:16 Carbon Dioxide 26 mmol/L (22-29) 07/08/22 09:16 Anion Gap 12.9 (5-19) 07/08/22 09:16 BUN 30 mg/dL (8-23) H 07/08/22 09:16 Creatinine 1.0 mg/dL (0.7-1.2) 07/08/22 09:16 GFR Calculation Not Reportable 07/08/22 09:16 Glucose 304 mg/dL (65-115) H 07/08/22 09:16 POC Glucose 114 mg/dL (70-110) H 07/09/22 06:17 Estimat Average Glucose 177 06/30/22 02:28 Hemoglobin A1c 7.8 % (4.0-6.0) H 06/30/22 02:28 Calculated Osmolality 282 mOsm/kg (285-295) L 07/08/22 09:16 Lactic Acid 2.1 mmol/L (0.5-2.2) 06/30/22 02:28 Lactic Acid (Sepsis) 1.7 mmol/L (0.5-2.2) 06/30/22 05:41 Calcium 8.6 mg/dL (8.5-10.5) 07/08/22 09:16 Magnesium 2.2 mg/dL (1.7-2.3) 07/01/22 03:10 Total Bilirubin 0.5 mg/dL (0.15-1.2) 07/08/22 09:16 AST 20 U/L (0-40) 07/08/22 09:16 ALT 21 U/L (0-41) 07/08/22 09:16 Alkaline Phosphatase 87 U/L (40-130) 07/08/22 09:16 Troponin T Gen 5 ng/L 100 ng/L (0-15) H 07/01/22 18:16 Troponin T Baseline 52 ng/L (0-15) H 06/29/22 20:14 Troponin T 120 Minute 76.26 ng/L (0-15) H 06/29/22 21:59 Delta Troponin T 24.26 ABS# (0-10) H* 06/29/22 21:59 Troponin T Hi Sens 6Hr 137.8 ng/L (0-15) H 06/30/22 02:28 Troponin T Hi Sens 6Hr Delta 85.8 ng/L (0-12) H* 06/30/22 02:28 NT-Pro-B Natriuret Pep 804 pg/mL (0-125) H 07/09/22 09:24 Total Protein 7.1 g/dL (6.6-8.7) 07/08/22 09:16 Albumin 3.1 g/dL (3.5-5.2) L 07/08/22 09:16 Globulin 4.0 g/dL (1.3-4.6) 07/08/22 09:16 Procalcitonin 0.41 ng/mL (0-0.5) 06/30/22 02:28 Influenza Type A Ag negative (Negative) 07/02/22 07:55 Influenza Type B Ag negative (Negative) 07/02/22 07:55 Vitals Last Vital Signs Temp 97.9 F 07/09/22 07:15 Pulse 79 07/09/22 08:00 Resp 18 07/09/22 08:00 BP 148/72 07/09/22 07:15 Pulse Ox 93 07/09/22 08:00 O2 Del Method 07/09/22 08:00 O2 Flow Rate 2 07/09/22 04:00 FiO2 2 07/08/22 22:08 Discharge Plan Discharge Patient Disposition: Home Condition: Stable Prescriptions: Continued lisinopril 40 mg tablet See Rx Instructions .ROUTE .COMPLEX Rx Instructions: Take 0.5 tab po bid Humulin R Regular U-100 Insuln 100 unit/mL solution See Rx Instructions .ROUTE .COMPLEX Rx Instructions: per sliding scale aspirin [Rosalee Low Dose Aspirin] 81 mg tablet,delayed release (DR/EC) 81 mg PO DAILY insulin glargine [Lantus Solostar U-100 Insulin] 100 unit/mL (3 mL) insulin pen 30 unit SUBCUT BID gabapentin 800 mg Tablet See Rx Instructions .ROUTE .COMPLEX Rx Instructions: 800 mg orally in the morning / 1600 mg orally in the evening isosorbide mononitrate 30 mg Tablet Extended Release 24 Hr 30 mg PO DAILY Brilinta 90 mg Tablet 90 mg PO BID carvedilol 25 mg tablet 25 mg PO BID Qty: 90 0RF Changed furosemide 40 mg tablet 40 mg PO BIDWM Qty: 90 0RF Discharge Orders: Discharge Order (Routine); Ordered 07/09/22 Ordered By: Dc Arreaga Referrals: Fiona Stevens MD [Primary Care Provider] - 07/23/22 Vadim Helton M.D [Physician] - 08/02/22 Discharge Diet: Cardiac and Diabetic Patient Instructions: Coronary Angioplasty (DC) Activity Restrictions/Additional Instructions: Continue low-sodium diet, continue fluid restriction 1500 mL in 24 hours. As per your discussion with cardiology in case of rapid weight gain, double the diuretic dose and contact cardiology and primary provider's office. Chairlift may be beneficial for access to lower part of the house. Discharge Attestations Time Spent in Discharge Care*: greater than 30 min Status at Discharge: Cognitive status at discharge: cognitively intact , Behavioral status at discharge: cooperative , Quality Metrics Clinical Quality Measures [ No reported AMI, CVA or VTE this stay] Coding Level of Care Code Acute Chg FW DC note Diagnoses Elevated troponin R77.8 Atherosclerosis of coronary artery of [place] heart without angina pectoris I25.10 Congestive heart failure I50.43 Heart failure chronicity: acute on chronic Heart failure type: combined systolic and diastolic Essential (primary) hypertension I10 Diabetes 1.5, managed as type 2 E13.9 Peripheral vascular disease, unspecified I73.9 Pneumonia J18.9
[2022-07-09 11:57] LABS: Glucose Point of Care 289 mg/dL (70-110)
--- NOTE | 2022-07-09 12:04 | PC.NURSE ---
Pt discharged home. IV removed no redness swelling or excess bleeding noted. Pts discharge instructions given along with prescriptions and follow up appointments. Pt verbalized understanding. Pt had no c/o pain or discomfort at the time of discharge. Pt transferred out of hospital via wheelchair accompanied by family and staff.
== END 2022-07-09 12:16 | disposition home or self-care (01) | DRG 250 ==
LOC: ER 20:12 → MEDSURG 23:36 → CSU 07-05 18:53
PROVIDERS: Family Medicine; Internal Medicine; Internal Medicine Cardiovascular Disease; Student in an Organized Health Care Education/Training Program; Admitting Provider Internal Medicine; Emergency Provider Emergency Medicine; PCP Family Medicine; Visit Provider Internal Medicine
PROC: 02703ZZ Dilation of Coronary Artery, One Artery, Percutaneous Approach (ICD-10-PCS; principal; 2022-07-05 16:30)
PROC: 02703ZZ Dilation of Coronary Artery, One Artery, Percutaneous Approach (ICD-10-PCS; 2022-07-05 16:30)
DX: I13.0 Hypertensive heart and chronic kidney disease with heart failure and stage 1 through stage 4 chronic kidney disease, or unspecified chronic kidney disease (principal); I21.4 Non-ST elevation (NSTEMI) myocardial infarction; I50.33 Acute on chronic diastolic (congestive) heart failure; J18.9 Pneumonia, unspecified organism; T82.897A Other specified complication of cardiac prosthetic devices, implants and grafts, initial encounter; N18.1 Chronic kidney disease, stage 1; E13.22 Other specified diabetes mellitus with diabetic chronic kidney disease; I25.10 Atherosclerotic heart disease of native coronary artery without angina pectoris; Z95.5 Presence of coronary angioplasty implant and graft; E13.51 Other specified diabetes mellitus with diabetic peripheral angiopathy without gangrene; Z79.4 Long term (current) use of insulin; Z79.02 Long term (current) use of antithrombotics/antiplatelets; I25.2 Old myocardial infarction; Z87.891 Personal history of nicotine dependence; Z86.16 Personal history of COVID-19; R04.0 Epistaxis; Y71.8 Miscellaneous cardiovascular devices associated with adverse incidents, not elsewhere classified; G47.30 Sleep apnea, unspecified; M25.572 Pain in left ankle and joints of left foot; E78.5 Hyperlipidemia, unspecified; Z89.412 Acquired absence of left great toe
CPT/HCPCS: 36415; 36416; 36600; 71045; 71275; 80048; 80053; 82805; 82962; 83036; 83605; 83735; 83880; 84145; 84484; 85025; 85347; 85378; 85730; 86403; 87040; 87070; 87205; 87449; 87804; 92920; 93005; 93306; 93454; 94640; 94664; 94760; 96365; 96367; 96372; 96375; 97161; 99152; 99153; 99285; C1725; C1769; C1874; C1887; C1894; J0360; J0456; J0696; J1644; J1650; J1815; J1940; J2250; J3010; J3490; J7030; J7050; J7644; Q9967

== ENCOUNTER → 2022-07-17 08:24 | Outpatient (BNVA) | payer OTHER, SELFPAY | PROVIDERS: PCP Family Medicine; Visit Provider Nurse Practitioner Family | DX: I25.10 Atherosclerotic heart disease of native coronary artery without angina pectoris (principal); Z87.891 Personal history of nicotine dependence; I12.9 Hypertensive chronic kidney disease with stage 1 through stage 4 chronic kidney disease, or unspecified chronic kidney disease; E13.22 Other specified diabetes mellitus with diabetic chronic kidney disease; N18.1 Chronic kidney disease, stage 1; Z79.4 Long term (current) use of insulin | CPT/HCPCS: 11721; 99214 ==

== ENCOUNTER → 2022-08-02 15:02 | Outpatient (BNVA) | payer OTHER, SELFPAY | PROVIDERS: PCP Family Medicine; Visit Provider Internal Medicine | DX: I25.10 Atherosclerotic heart disease of native coronary artery without angina pectoris (principal); I13.0 Hypertensive heart and chronic kidney disease with heart failure and stage 1 through stage 4 chronic kidney disease, or unspecified chronic kidney disease; E13.22 Other specified diabetes mellitus with diabetic chronic kidney disease; N18.1 Chronic kidney disease, stage 1; Z87.891 Personal history of nicotine dependence; Z79.4 Long term (current) use of insulin; I50.43 Acute on chronic combined systolic (congestive) and diastolic (congestive) heart failure | CPT/HCPCS: 99214 ==

== ENCOUNTER → 2022-09-25 09:29 | Outpatient (BNVA) | payer OTHER, SELFPAY | PROVIDERS: PCP Family Medicine; Visit Provider Podiatrist Foot & Ankle Surgery | DX: E11.8 Type 2 diabetes mellitus with unspecified complications (principal); L84 Corns and callosities; L60.3 Nail dystrophy; Z89.422 Acquired absence of other left toe(s); Z89.412 Acquired absence of left great toe; Z89.411 Acquired absence of right great toe; E11.22 Type 2 diabetes mellitus with diabetic chronic kidney disease; Z79.4 Long term (current) use of insulin; N18.1 Chronic kidney disease, stage 1 | CPT/HCPCS: 11056; 11721 ==

== ENCOUNTER → 2023-01-01 09:33 | Outpatient (BNVA) | payer OTHER, SELFPAY | PROVIDERS: PCP Family Medicine; Visit Provider Podiatrist Foot & Ankle Surgery | DX: E13.22 Other specified diabetes mellitus with diabetic chronic kidney disease (principal); Z89.412 Acquired absence of left great toe; Z89.411 Acquired absence of right great toe; L84 Corns and callosities; L60.3 Nail dystrophy; Z89.422 Acquired absence of other left toe(s); N18.1 Chronic kidney disease, stage 1 | CPT/HCPCS: 11056; 11721 ==

== ENCOUNTER → 2023-01-30 08:11 | Outpatient (BNVA) | payer OTHER, SELFPAY | PROVIDERS: PCP Family Medicine; Visit Provider Podiatrist Foot & Ankle Surgery | DX: Z89.422 Acquired absence of other left toe(s) (principal); N18.1 Chronic kidney disease, stage 1; Z89.412 Acquired absence of left great toe; Z89.411 Acquired absence of right great toe; E13.22 Other specified diabetes mellitus with diabetic chronic kidney disease; Z79.4 Long term (current) use of insulin | CPT/HCPCS: 99213 ==

== ENCOUNTER → 2023-01-31 13:51 | Outpatient (BNVA) | payer OTHER, SELFPAY | PROVIDERS: PCP Family Medicine; Visit Provider Internal Medicine | DX: I25.10 Atherosclerotic heart disease of native coronary artery without angina pectoris (principal); I13.0 Hypertensive heart and chronic kidney disease with heart failure and stage 1 through stage 4 chronic kidney disease, or unspecified chronic kidney disease; E13.22 Other specified diabetes mellitus with diabetic chronic kidney disease; I50.43 Acute on chronic combined systolic (congestive) and diastolic (congestive) heart failure; N18.1 Chronic kidney disease, stage 1; Z87.891 Personal history of nicotine dependence; Z79.4 Long term (current) use of insulin | CPT/HCPCS: 99214 ==

== ENCOUNTER → 2023-03-19 10:01 | Outpatient (BNVA) | payer OTHER, SELFPAY | PROVIDERS: PCP Family Medicine; Visit Provider Podiatrist Foot & Ankle Surgery | DX: Z89.422 Acquired absence of other left toe(s) (principal); N18.1 Chronic kidney disease, stage 1; E13.9 Other specified diabetes mellitus without complications; L60.3 Nail dystrophy; Z89.412 Acquired absence of left great toe; Z89.411 Acquired absence of right great toe; E13.22 Other specified diabetes mellitus with diabetic chronic kidney disease; Z79.4 Long term (current) use of insulin | CPT/HCPCS: 11721 ==

== ENCOUNTER → 2023-05-22 13:17 | Outpatient (BNVA) | payer OTHER, SELFPAY | PROVIDERS: PCP Family Medicine; Visit Provider Podiatrist Foot & Ankle Surgery | DX: Z89.422 Acquired absence of other left toe(s) (principal); N18.1 Chronic kidney disease, stage 1; L60.3 Nail dystrophy; Z89.411 Acquired absence of right great toe; Z89.412 Acquired absence of left great toe; E13.22 Other specified diabetes mellitus with diabetic chronic kidney disease; Z79.4 Long term (current) use of insulin | CPT/HCPCS: 11721 ==

== ENCOUNTER → 2023-08-01 07:08 | Outpatient (BNVA) | payer OTHER, SELFPAY | PROVIDERS: PCP Family Medicine; Visit Provider Podiatrist Foot & Ankle Surgery | DX: Z89.422 Acquired absence of other left toe(s) (principal); N18.1 Chronic kidney disease, stage 1; L60.3 Nail dystrophy; L97.511 Non-pressure chronic ulcer of other part of right foot limited to breakdown of skin; L97.521 Non-pressure chronic ulcer of other part of left foot limited to breakdown of skin; Z89.412 Acquired absence of left great toe; Z89.411 Acquired absence of right great toe; E13.621 Other specified diabetes mellitus with foot ulcer; Z79.4 Long term (current) use of insulin | CPT/HCPCS: 99213 ==

== ENCOUNTER → 2023-08-08 14:31 | Outpatient (BNVA) | payer OTHER, SELFPAY | PROVIDERS: PCP Family Medicine; Visit Provider Internal Medicine | DX: I25.10 Atherosclerotic heart disease of native coronary artery without angina pectoris (principal); I13.0 Hypertensive heart and chronic kidney disease with heart failure and stage 1 through stage 4 chronic kidney disease, or unspecified chronic kidney disease; I50.43 Acute on chronic combined systolic (congestive) and diastolic (congestive) heart failure; Z87.891 Personal history of nicotine dependence; E13.22 Other specified diabetes mellitus with diabetic chronic kidney disease; N18.1 Chronic kidney disease, stage 1; Z79.4 Long term (current) use of insulin | CPT/HCPCS: 99214 ==

== ENCOUNTER → 2023-08-30 13:33 | Outpatient (BNVA) | payer OTHER, SELFPAY | PROVIDERS: PCP Family Medicine; Visit Provider Podiatrist Foot & Ankle Surgery | DX: E13.621 Other specified diabetes mellitus with foot ulcer; Z89.422 Acquired absence of other left toe(s); N18.1 Chronic kidney disease, stage 1; E13.9 Other specified diabetes mellitus without complications; L60.3 Nail dystrophy; L97.511 Non-pressure chronic ulcer of other part of right foot limited to breakdown of skin; L97.521 Non-pressure chronic ulcer of other part of left foot limited to breakdown of skin; Z89.412 Acquired absence of left great toe; Z89.411 Acquired absence of right great toe; Z79.4 Long term (current) use of insulin | CPT/HCPCS: 99213 ==

== ENCOUNTER → 2023-12-10 09:29 | Outpatient (BNVA) | payer OTHER, SELFPAY | PROVIDERS: PCP Family Medicine; Visit Provider Podiatrist Foot & Ankle Surgery | DX: Z89.422 Acquired absence of other left toe(s); N18.1 Chronic kidney disease, stage 1; E13.69 Other specified diabetes mellitus with other specified complication; Z89.411 Acquired absence of right great toe; E13.29 Other specified diabetes mellitus with other diabetic kidney complication; Z79.4 Long term (current) use of insulin | CPT/HCPCS: 99213 ==

== ENCOUNTER 2024-01-31 09:32 | Emergency (ER) | payer OTHER, MEDICARE, SELFPAY ==
[2024-01-31 10:45] VITALS: BP 133/76; PULSE 92; RESP 18; TEMP 36.8; O2SAT 95
--- NOTE | 2024-01-31 10:58 | PC.PHAR ---
Addendum entered by Ledy Barahona 01/31/24 11:09: PT PRESENTED MED LIST BUT DOES NOT HAVE STRENGTH WRITTEN ON IT. WILL WAIT FOR [facility]IFICATION. PT DID NOT TAKE PLAVIX 75MG YESTERDAY. MED LIST ALSO HAS BRILINTA LISTED ON IT BUT NO STRENGTH. PT TOOK HIS LONG ACTING LANTUS INSULIN THIS MORNING AND ALL AM MEDS. Original Note: PT IS [facility] 01/31/24 10:57AM
--- NOTE | 2024-01-31 11:00 | ED_ITS ---
HPI - GI Bleed 2 General: Chief complaint: GI Bleed Stated complaint: bleeding Time Seen by Provider: 01/31/24 10:51 History of Present Illness: 74-year-old man with a history of farfan ry artery disease on Plavix, peripheral vascular disease, hypertension, diabetes and chronic kidney disease who presents to the emergency room with bright red blood per rectum that started last night and has mostly resolved today. He has never had a colonoscopy. He is having no abdominal pain. No weakness. No shortness of breath. He says overnight he had several large clots this morning he has had some oozing and it leaks into his underwear. Review of Systems 2 Narrative: Constitutional symptoms: Negative except as documented in HPI. Skin symptoms: Negative except as documented in HPI. Eye symptoms: Negative except as documented in HPI. ENMT symptoms: Negative except as documented in HPI. Respiratory symptoms: Negative except as documented in HPI. Cardiovascular symptoms: Negative except as documented in HPI. Gastrointestinal symptoms: Negative except as documented in HPI. Genitourinary symptoms: Negative except as documented in HPI. Musculoskeletal symptoms: Negative except as documented in HPI. Neurologic symptoms: Negative except as documented in HPI. Psychiatric symptoms: Negative except as documented in HPI. Endocrine symptoms: Negative except as documented in HPI. PFSH ED 2 PFSH: Medical History Atherosclerosis of coronary artery Essential (primary) hypertension Chronic kidney disease, stage 1 Osteomyelitis, unspecified Venous insufficiency Diabetes 1.5, managed as type 2 Peripheral vascular disease, unspecified Surgical History History of amputation of great toe Stented coronary artery History of amputation of lesser toe of left foot Family History Father Cancer Stroke Mother Diabetes Denies family history of CAD (coronary artery disease) Clotting disorder Dementia Hyperlipidemia Psychiatric illness Chronic kidney disease (CKD) Suicide Anesthesia complication Bleeding disorder Family history of premature coronary artery disease Lung disease Hypertension Social History Smoking and tobacco/nicotine status: former use of tobacco/nicotine Quit status (tobacco/nicotine): has quit using Second hand smoke exposure: No Alcohol intake: never Substance/Drug Use: never Adopted: No Caregiver/support person: Yes Lives independently: Yes Household members: spouse Housing: House Marital status: Number of children: 6 Number of grandchildren: 11 Highest education level completed: Bachelor's Degree service: Yes Current occupational status: retired Pets and animals: Yes Leisure activites: fishing Do you think of yourself as: Straight/Heterosexual Current gender identity: Male Cindy/Quaker: Scientology Special cindy needs: No Agree to transfusion: Yes Physical Exam 2 Narrative: EXAM NARRATIVE: General: Alert, no acute distress. Skin: Warm, dry. Head: Normocephalic, atraumatic. Neck: Supple, trachea midline. Eye: Extraocular movements are intact. Ears, nose, mouth and throat: mucosa moist. Cardiovascular: Regular, Normal peripheral perfusion. Respiratory: Lungs are clear to auscultation, respirations are non-labored, breath sounds are equal, Symmetrical chest wall expansion. Gastrointestinal: Soft, Nontender, Non distended Musculoskeletal: Normal ROM, no deformity. Neurological: Alert and oriented, No focal neurological deficit observed. Psychiatric: Cooperative, appropriate mood & affect. Course 2 Vital Signs: Vital signs: Vital Signs Temperature 98.2 F 01/31/24 10:45 Pulse Rate 81 01/31/24 11:24 Respiratory Rate 16 01/31/24 11:24 Blood Pressure 148/108 01/31/24 11:24 Pulse Oximetry 97 01/31/24 11:24 Oxygen Delivery Me thod Room Air 01/31/24 11:24 MDM - GI Bleed Medical Decision Making Medical decision making: Differential diagnosis including but not limited to and based on the above HPI, review of systems and physical exam: This is likely a diverticular and internal hemorrhoid bleed. Checking CBC to check for anemia. Also BMP to look for elevation in BUN that might indicate an upper GI bleed. Orders placed to evaluate differential diagnosis based on the above differential, HPI and physical exam Lab Review: Laboratory results were reviewed and interpreted by myself the emergency room physician. Hemoglobin is stable and normal at 13.9. BUN and creatinine are 29 and 1 which is consistent with previous lab values. I reviewed the patient's medical record. Reexamination: Patient remained stable. No increased work of breathing. No altered mental status. No focal motor deficits. Assessment and plan: Lower GI bleeding. - Discharged home - Discussed plan with patient. Answered any questions. - Evaluation and treatment of this problem were appropriate in the emergency setting. Lab Data 01/31/24 11:10 01/31/24 11:10 Laboratory Results WBC 6.76 10^3/uL (3.29-11.43) 01/31/24 11:10 RBC 4.51 10^6/uL (3.85-5.65) 01/31/24 11:10 Hgb 13.90 g/dL (11.27-16.99) 01/31/24 11:10 Hct 40.6 % (37-53) 01/31/24 11:10 MCV 90.0 fl (82-101) 01/31/24 11:10 MCH 30.8 pg (27-33) 01/31/24 11:10 MCHC 34.2 g/dL (30-55) 01/31/24 11:10 RDW 13.2 % (12.1-15.1) 01/31/24 11:10 Plt Count 202 10^3/cmm (157-399) 01/31/24 11:10 MPV 10.2 fL (7.4-10.4) 01/31/24 11:10 Neut % (Auto) 66.5 % 01/31/24 11:10 Lymph % (Auto) 19.7 % 01/31/24 11:10 [place] % (Auto) 10.4 % 01/31/24 11:10 Eos % (Auto) 2.4 % 01/31/24 11:10 Baso % (Auto) 0.6 % 01/31/24 11:10 Neut # (Auto) 4.50 10^3/uL (1.8-7.7) 01/31/24 11:10 Lymph # (Auto) 1.3 10^3/uL (0.8-4.8) 01/31/24 11:10 [place] # (Auto) 0.7 10^3/uL (0.2-0.9) 01/31/24 11:10 Eos # (Auto) 0.2 10^3/uL (0.0-0.8) 01/31/24 11:10 Baso # (Auto) 0.0 10^3/uL (0.0-0.1) 01/31/24 11:10 Nucleated RBC % (auto) 0 % 01/31/24 11:10 Nucleated RBCs # 0.0 /100WBC 01/31/24 11:10 PT 13.70 SECONDS (12.1-14.9) 01/31/24 11:10 INR 1.02 (0.8-1.2) 01/31/24 11:10 APTT 26.3 SECONDS (23.9-36.7) 01/31/24 11:10 Sodium 139 mmol/L (136-145) 01/31/24 11:10 Potassium 4.0 mmol/L (3.5-5.1) 01/31/24 11:10 Chloride 105 mmol/L (98-107) 01/31/24 11:10 Carbon Dioxide 22 mmol/L (22-29) 01/31/24 11:10 Anion Gap 16.0 (5-19) 01/31/24 11:10 BUN 29 mg/dL (8-23) H 01/31/24 11:10 Creatinine 1.0 mg/dL (0.7-1.2) 01/31/24 11:10 GFR Calculation Not Reportable 01/31/24 11:10 Glucose 203 mg/dL (65-115) H 01/31/24 11:10 Calculated Osmolality 300 mOsm/kg (285-295) H 01/31/24 11:10 Calcium 8.5 mg/dL (8.5-10.5) 01/31/24 11:10 Total Bilirubin 0.5 mg/dL (0.15-1.2) 01/31/24 11:10 AST 17 U/L (0-40) 01/31/24 11:10 ALT 14 U/L (0-41) 01/31/24 11:10 Alkaline Phosphatase 79 U/L (40-130) 01/31/24 11:10 Total Protein 6.3 g/dL (6.6-8.7) L 01/31/24 11:10 Albumin 3.6 g/dL (3.5-5.2) 01/31/24 11:10 Globulin 2.7 g/dL (1.3-4.6) 01/31/24 11:10 No radiology studies performed this visit Discharge Plan Discharge Patient Disposition: Home Clinical Impression: Hematochezia Condition: Stable Prescriptions: No Action Humulin R Regular U-100 Insuln 100 unit/mL solution See Rx Instructions .ROUTE .COMPLEX Rx Instructions: per sliding scale metoprolol succinate 25 mg tablet extended release 24 hr 12.5 mg PO DAILY Qty: 90 2RF lisinopril 40 mg tablet See Rx Instructions .ROUTE .COMPLEX Rx Instructions: Take 0.5 tab po daily clopidogrel [Plavix] 75 mg tablet 75 mg PO DIRECTED Qty: 90 3RF Rx Instructions: 600mg (8 tabs) for first dose, then 75mg (1 tab) daily (DME) Custom Accomdative Diabetic shoe and custom insoles See Rx Instructions .Route .MEDSUPPLY Qty: 1 0RF Rx Instructions: As directed aspirin [Rosalee Low Dose Aspirin] 81 mg tablet,delayed release (DR/EC) 81 mg PO DAILY insulin glargine [Lantus Solostar U-100 Insulin] 100 unit/mL (3 mL) insulin pen 30 unit SUBCUT BID gabapentin 800 mg Tablet See Rx Instructions .ROUTE .COMPLEX Rx Instructions: 800 mg orally in the morning / 1600 mg orally in the evening isosorbide mononitrate 30 mg Tablet Extended Release 24 Hr 30 mg PO DAILY furosemide 40 mg tablet 40 mg PO BIDWM Qty: 90 0RF Discharge Orders: Discharge ED (Routine); Ordered 01/31/24 Ordered By: Preeti Mcclendon Referrals: Fiona Stevens MD [Primary Care Provider] - Discharge Diet: Usual diet Discharge Activity: Resume usual activity Patient Instructions: Rectal Bleeding (ED) Activity Restrictions/Additional Instructions: Thank you for choosing [facility] for your healthcare needs today. Please realize this is an emergency room and that we are providing you with a medical screening exam and this may not be complete and all inclusive of all the testing and or work up that you may need to determine your ailment or severity of your illness. You have been screened and evaluated and felt safe for discharge. Health conditions do change or evolve sometimes and as such it is important that you follow up with your Primary Doctor to be re checked, 3-5 days is a general good time frame for follow up. You are always welcome to return to the ED for re assessment if your symptoms are worsening or you have new concerns Coding Level of Care Code ED Train Control Technician for Uri Narayan
[2024-01-31 11:16] LABS: Basophils % 0.6 %; Eosinophils # 0.2 10^3/uL (0.0-0.8); Eosinophils % 2.4 %; Hematocrit 40.6 % (37-53); Lymphocytes # 1.3 10^3/uL (0.8-4.8); Lymphocytes % 19.7 %; Mean Corpuscular HGB Conc 34.2 g/dL (30-55); Mean Corpuscular Hemoglobin 30.8 pg (27-33); Mean Platelet Volume 10.2 fL (7.4-10.4); Monocytes # 0.7 10^3/uL (0.2-0.9); Monocytes % 10.4 %; Neutrophils % 66.5 %; Nucleated Red Blood Cells % 0 %; Platelet Count 202 10^3/cmm (157-399); Red Blood Count 4.51 10^6/uL (3.85-5.65); Red Cell Distribution Width 13.2 % (12.1-15.1); White Blood Count 6.76 10^3/uL (3.29-11.43)
--- NOTE | 2024-01-31 11:23 | PC.NURSE ---
this nurse assumed pt care at 1105.
[2024-01-31 11:24] VITALS: BP 148/108; PULSE 81; RESP 16; O2SAT 97
[2024-01-31 11:48] LABS: Alanine Aminotransferase 14 U/L (0-41); Albumin Level 3.6 g/dL (3.5-5.2); Alkaline Phosphatase 79 U/L (40-130); Aspartate Amino Transferase 17 U/L (0-40); Blood Urea Nitrogen 29 mg/dL (8-23); Calcium 8.5 mg/dL (8.5-10.5); Carbon Dioxide 22 mmol/L (22-29); Chloride 105 mmol/L (98-107); Globulin 2.7 g/dL (1.3-4.6); Glucose 203 mg/dL (65-115); Osmolality Calculated 300 mOsm/kg (285-295); Sodium 139 mmol/L (136-145); Total Bilirubin 0.5 mg/dL (0.15-1.2); Total Protein 6.3 g/dL (6.6-8.7)
[2024-01-31 11:59] LABS: INR 1.02 (0.8-1.2); Partial Thromboplastin Time 26.3 SECONDS (23.9-36.7)
[2024-01-31 12:15] VITALS: BP 130/69; PULSE 80; RESP 16; O2SAT 95
[2024-01-31 12:23] VITALS: BP 130/69; PULSE 80; RESP 16; TEMP 36.8; O2SAT 95
== END 2024-01-31 12:22 | disposition home or self-care (01) ==
PROVIDERS: Emergency Provider Emergency Medicine; PCP Family Medicine
DX: K92.1 Melena (principal); E13.9 Other specified diabetes mellitus without complications; I10 Essential (primary) hypertension; Z79.4 Long term (current) use of insulin; Z79.82 Long term (current) use of aspirin
CPT/HCPCS: 36415; 80053; 85025; 85610; 85730; 99283

== ENCOUNTER → 2024-02-13 14:03 | Outpatient (BNVA) | payer OTHER, MEDICARE, SELFPAY | PROVIDERS: PCP Family Medicine; Visit Provider Internal Medicine | DX: I25.10 Atherosclerotic heart disease of native coronary artery without angina pectoris (principal); I50.43 Acute on chronic combined systolic (congestive) and diastolic (congestive) heart failure; Z87.891 Personal history of nicotine dependence | CPT/HCPCS: 99214 ==

== ENCOUNTER → 2024-03-24 09:14 | Outpatient (BNVA) | payer OTHER, MEDICARE, SELFPAY | PROVIDERS: PCP Family Medicine; Visit Provider Podiatrist Foot & Ankle Surgery | DX: Z89.422 Acquired absence of other left toe(s); Z89.419 Acquired absence of unspecified great toe; N18.1 Chronic kidney disease, stage 1; E13.22 Other specified diabetes mellitus with diabetic chronic kidney disease; Z89.412 Acquired absence of left great toe; Z89.411 Acquired absence of right great toe; Z79.4 Long term (current) use of insulin | CPT/HCPCS: 99213 ==

== ENCOUNTER 2024-05-06 10:56 | Outpatient (CLI) | payer OTHER, SELFPAY ==
--- NOTE | 2024-05-06 11:02 | USCV_ITS ---
Berry Diaz Age: 74 Gender: M : 1950 Exam Date: 05/06/2024 11:23 Ordering Phys: Cr Cid Technologist: CT Exam [place] [facility] [place] Indication: cad BP: 130 / 70 HR: 63 Rhythm: Sinus Technical Quality: Technically difficult study MEASUREMENTS (Male / Female) Normal Values 2D ECHO LVOT Diameter 2.2 cm LV Ejection Fraction MOD 4C 58.6 % LV Ejection Fraction MOD 2C 58.1 % LV Ejection Fraction 2C AL 58.2 % LA Diameter 4.6 cm RA Systolic Volume 4C AL 35.0 ml RA Systolic Volume 4C MOD 35.3 ml LA Sys Volume AL 66.5 cm cubed LA Sys Volume Index AL 25.9 cm cubed/m squared Aorta at Sinotubular Diameter 2.9 cm M-MODE LA Ao Ratio MM 1.5 AV Cusp Separation MM 1.7 cm DOPPLER AV Peak Velocity 130.0 cm/s LVOT Peak Velocity 96.0 cm/s AV Area Cont Eq vti 3.0 cm squared AV Area Cont Eq pk 2.8 cm squared MV Peak Velocity 133.0 cm/s MV Area PHT 3.1 cm squared Mitral E to A Ratio 0.8 TR Peak Velocity 140.0 cm/s TR Peak Gradient 7.8 mmHg TV Peak E Velocity 63.0 cm/s Right Atrial Pressure 3.0 mmHg Pulmonary Artery Systolic Pressu 10.8 mmHg PV Peak Velocity 99.5 cm/s FINDINGS Left Ventricle Normal LV size ejection fraction of 58%. Moderate constant ventricular hypertrophy.Grade I/IV diastolic dysfunction (abnormal relaxation filling pattern), normal to mildly elevated filling pressures. Mildly hypokinetic apical inferior wall segmentGrade I/IV diastolic dysfunction (abnormal relaxation filling pattern), normal to mildly elevated filling pressures. Right Ventricle The right ventricle is normal in size and function. Right Atrium The right atrium is normal in size. Left Atrium Mildly increased left atrial size. Mitral Valve Thickened mitral valve. Moderate mitral annular calcification. Mild mitral valve regurgitation. Aortic Valve Thickened aortic valve. Tricuspid Valve No gross abnormalities noted Pulmonic Valve Pulmonic valve not well visualized. Pericardium No pericardial effusion. Aorta Normal aortic annulus size. IVC Inferior vena cava not visualized. CONCLUSIONS Normal LV size ejection fraction of 58%. Moderate constant ventricular hypertrophy.Grade I/IV diastolic dysfunction (abnormal relaxation filling pattern), normal to mildly elevated filling pressures. Mildly hypokinetic apical inferior wall segment. Mildly increased left atrial size. Thickened mitral valve. Moderate mitral annular calcification. Mild mitral valve regurgitation. Thickened aortic valve. Grade I/IV diastolic dysfunction (abnormal relaxation filling pattern), normal to mildly elevated filling pressures. There are no intracardiac masses. Technically difficult study because of the poor ultrasonic window. Dr Eleni Leong MD FACC (Electronically Signed) Final Date: 08 May 2024 11:46 S
[2024-05-06 12:50] LABS: Bilirubin Urine Negative (Negative); Blood Urine Negative (Negative); Glucose Urine UA Negative (Normal); Ketones Urine Negative (Negative); Leukocyte Esterase Urine 3+ (Negative); Nitrate Urine Negative (Negative); Protein Urine Negative (Negative); Specific Gravity, Urine 1.007 (1.005-1.030); Urine Appearance Clear (CLEAR); Urine Color Yellow (Yellow); pH Urine 6.5 (5-7)
[2024-05-06 12:55] LABS: Add Urine Microscopic? YES; Bacteria Urine Trace /hpf; Hyaline Casts Urine 0-4 /lpf; RBC Urine 0-2 /hpf (0-2); Squamous Epithelial Cell Urine 0-5 /hpf (0-5); WBC Urine 51-100 /hpf (0-5)
[2024-05-06 13:05] LABS: Alanine Aminotransferase 15 U/L (0-41); Albumin Level 3.9 g/dL (3.5-5.2); Alkaline Phosphatase 86 U/L (40-130); Anion Gap 12.1 (5-19); Aspartate Amino Transferase 18 U/L (0-40); Blood Urea Nitrogen 21 mg/dL (8-23); Calcium 8.4 mg/dL (8.5-10.5); Carbon Dioxide 27 mmol/L (22-29); Chloride 103 mmol/L (98-107); Globulin 2.9 g/dL (1.3-4.6); Glucose 107 mg/dL (65-115); Osmolality Calculated 289 mOsm/kg (285-295); Potassium 4.1 mmol/L (3.5-5.1); Sodium 138 mmol/L (136-145); Total Bilirubin 0.3 mg/dL (0.15-1.2); Total Protein 6.8 g/dL (6.6-8.7)
[2024-05-06 13:23] LABS: Add Urine Culture? Yes
== END 2024-05-06 10:57 | disposition home or self-care (01) ==
PROVIDERS: PCP Family Medicine; Visit Provider Chiropractor
DX: I50.30 Unspecified diastolic (congestive) heart failure (principal); I51.7 Cardiomegaly; I34.81 Nonrheumatic mitral (valve) annulus calcification; I35.0 Nonrheumatic aortic (valve) stenosis; I25.9 Chronic ischemic heart disease, unspecified; E11.9 Type 2 diabetes mellitus without complications
CPT/HCPCS: 36415; 80053; 81001; 93306

== ENCOUNTER 2024-05-23 12:39 | Emergency (ER) | payer OTHER, SELFPAY ==
[2024-05-23 13:03] VITALS: BP 179/77; PULSE 115; RESP 18; TEMP 37.6; O2SAT 93
--- NOTE | 2024-05-23 15:19 | W.ED.EXTPRO ---
HPI - Extremity Problem General: Chief complaint: Extremity Problem,Nontraumatic Stated complaint: severe pain in feet Time Seen by Provider: 05/23/24 14:24 History of Present Illness: Berry Koehler is a 74-year-old male presents to the emergency department with complaints of bilateral, left greater than right, foot pain. Patient reports his long history of polyneuropathy with Charcot foot. He reports his pain is similar to what he usually has but much worse today. Onset last night. He has taken his first dose of gabapentin today but has not taken his afternoon dose. He is also taken ibuprofen. Patient's medical history: Patient has multiple comorbidities. Related Data Home Medications Medication Instructions Recorded Confirmed insulin regular human 100 unit/mL See Rx Instructions .Route .COMPLEX 06/23/19 05/23/24 injection solution (Humulin R Regular U-100 Insulin) aspirin 81 mg tablet,delayed 81 mg PO DAILY 08/12/21 05/23/24 release (Rosalee Low Dose Aspirin) insulin glargine 100 unit/mL (3 30 unit SUBCUT BID 08/12/21 05/23/24 mL) subcutaneous pen (Lantus Solostar U-100 Insulin) gabapentin 800 mg tablet See Rx Instructions .Route .COMPLEX 08/27/21 05/23/24 isosorbide mononitrate 30 mg 30 mg PO DAILY 08/27/21 05/23/24 tablet,extended release 24 hr lisinopril 40 mg tablet See Rx Instructions .Route .COMPLEX 07/17/22 05/23/24 chromium aa [id number]-[id number]-[id number] 1 tab PO DAILY 05/23/24 05/23/24 200 mcg-5 mg-25 mg tablet garlic 200 mg tablet 200 mg PO DAILY 05/23/24 05/23/24 niacin 100 mg tablet 100 mg PO DAILY 05/23/24 05/23/24 omega 4-qiu-xid-fish oil 100 1 cap PO DAILY 05/23/24 05/23/24 mg-160 mg-1,000 mg capsule (Fish Oil) Previous Rx's Medication Instructions Recorded furosemide 40 mg tablet 40 mg PO BIDWM #90 tabs 07/09/22 metoprolol succinate 25 mg 12.5 mg (1/2 x 25 mg) PO DAILY #90 07/17/22 tablet,extended release 24 hr tabs clopidogrel 75 mg tablet (Plavix) 75 mg PO DIRECTED #90 tabs 01/31/23 Custom Accomdative Diabetic shoe #1 ea 12/27/23 and custom insoles mupirocin 2 % topical ointment 1 applic topical TID #15 grams 03/24/24 Allergies Allergy/AdvReac Type Severity Reaction Status Date / Time No Known Allergies Allergy Verified 05/23/24 13:08 Review of Systems General: Reports: 10 or more systems reviewed and unremarkable except in HPI and below (Reports L>R foot pain-neuropathic pain) PFSH ED PFSH: Medical History Atherosclerosis of coronary artery Essential (primary) hypertension Chronic kidney disease, stage 1 Osteomyelitis, unspecified Venous insufficiency Diabetes 1.5, managed as type 2 Peripheral vascular disease, unspecified Surgical History History of amputation of great toe Stented coronary artery History of amputation of lesser toe of left foot Family History Father Cancer Stroke Mother Diabetes Denies family history of CAD (coronary artery disease) Clotting disorder Dementia Hyperlipidemia Psychiatric illness Chronic kidney disease (CKD) Suicide Anesthesia complication Bleeding disorder Family history of premature coronary artery disease Lung disease Hypertension Social History Smoking and tobacco/nicotine status: former use of tobacco/nicotine Quit status (tobacco/nicotine): has quit using Second hand smoke exposure: No Alcohol intake: never Substance/Drug Use: never Adopted: No Caregiver/support person: Yes Lives independently: Yes Household members: spouse Housing: House Marital status: Number of children: 6 Number of grandchildren: 11 Highest education level completed: Bachelor's Degree service: Yes Current occupational status: retired Pets and animals: Yes Leisure activites: fishing Do you think of yourself as: Straight/Heterosexual Current gender identity: Male Cindy/Pentecostalism: Yazdanism Special cindy needs: No Agree to transfusion: Yes Physical Exam Const: COMMON NORMALS: patient oriented x3 and alert GENERAL APPEARANCE: cooperative ORIENTATION/CONSCIOUSNESS: Yes awake, Yes oriented to person, Yes oriented to place and Yes oriented to time HENMT: COMMON NORMALS: normocephalic and atraumatic HEAD & SCALP: normocephalic and atraumatic FACE & SINUS: normal facial exam MOUTH: Normal oral and palatal mucosa present THROAT: posterior oropharynx normal Eye: COMMON NORMALS: Equal, round and reactive pupils present, EOMs intact bilaterally, conjunctivae normal and no scleral icterus GENERAL EYE: appearance normal, both eyes and all related structures ALIGNMENT: Yes alignment normal PERIORBITAL: periorbital findings normal CONJUNCTIVA: Yes conjunctivae normal PUPIL: Yes Equal, round and reactive pupils present Neck/C-Spine: COMMON NORMALS: full ROM GENERAL: Yes normal visual inspection Lymph: LYMPHATIC: no lymphadenopathy noted Chest: COMMONS NORMALS: normal inspection of the chest Breast/axilla inspection: Yes no chest deformity, asymmetry, normal contours, no nodules, masses, tenderness Resp: COMMON NORMALS: normal respiratory effort, No retractions, No use of accessory muscles and clear to auscultation bilaterally EFFORT & INSPECTION: Yes able to speak in complete sentences and Yes symmetric chest movement AUSCULTATION: clear to auscultation bilaterally Cardio: COMMON NORMALS: regular rate, regular rhythm and Peripheral pulses 2+ throughout RATE: regular rate RHYTHM: regular rhythm PERIPHERAL PULSES: Peripheral pulses 2+ throughout GI: COMMON NORMALS: Normal to inspection, nondistended, normoactive bowel sounds present, Soft to palpation, non-tender and No hepatosplenomegaly present INSPECTION: Yes normal to inspection AUSCULTATION: Yes normoactive bowel sounds PALPATION: Yes Soft to palpation and Yes No hepatosplenomegaly present RECTAL EXAM: Yes deferred Extremity: COMMON NORMALS: normal to inspection NARRATIVE EXTREMITY EXAM: Bilateral foot pain: Shoes and socks were removed. Patient has had multiple toes removed due to diabetes. He describes multiple fractures in his feet from diabetes?questionable Charcot foot. Patient denies any recent injuries He reports he did have a healing wound to the medial aspect of the left ankle. No other wounds noted. There are no areas of redness warmth or cellulitic changes. He describes neuropathic pain to the lateral aspect of the feet. Denies calf or thigh pain Denies back pain Patient is able to dorsiflex plantarflex both feet He does not have great toes He is able to wiggle his remaining toes Sensation is not intact. This is unchanged from baseline GENERAL: Yes normal exam except as noted Neuro: COMMON NORMALS: patient oriented x3 SENSORIUM/ORIENTATION: Yes alert, Yes oriented to person, Yes oriented to place and Yes oriented to time CRANIAL NERVES: Yes CN normal except as noted Psych: COMMON NORMALS: mental status grossly normal, Normal thought process present, cooperative, activity/motor behavior normal, denies homicidal ideation and denies suicidal ideation THOUGHT PROCESS: Normal thought process present Skin: COMMON NORMALS: no rashes or lesions noted, no wounds and turgor normal GENERAL SKIN EXAM: no rashes or lesions noted and turgor normal Course Vital Signs: Vital signs: Vital Signs Temperature 99.7 F H 05/23/24 13:03 Pulse Rate 95 05/23/24 15:57 Respiratory Rate 16 05/23/24 15:57 Blood Pressure 142/63 05/23/24 15:57 Pulse Oximetry 91 05/23/24 15:57 Oxygen Delivery Me thod Room Air 05/23/24 15:57 MDM - Extremity (Nontraumatic) Medical Decision Making Patient presented for acute on chronic neuropathic pain in bilateral feet. He is taking his gabapentin x 1 dose but has not other medications. Here in the emergency department I gave him a dose of Toradol as well as Decadron. Patient had good response and symptoms are more manageable. Patient would like to go home. He is going to follow-up with Dr. Cloin. All questions answered No radiology studies performed this visit Discharge Plan Discharge Patient Disposition: Home Clinical Impression: Neuropathic pain Condition: Stable Prescriptions: No Action Humulin R Regular U-100 Insuln 100 unit/mL solution See Rx Instructions .ROUTE .COMPLEX Rx Instructions: per sliding scale mupirocin 2 % ointment 1 applic topical TID Qty: 15 0RF Rx Instructions: apply to wound TID and as needed with dressing changes, cover with band-aid metoprolol succinate 25 mg tablet extended release 24 hr 12.5 mg PO DAILY Qty: 90 2RF lisinopril 40 mg tablet See Rx Instructions .ROUTE .COMPLEX Rx Instructions: Take 0.5 tab po daily clopidogrel [Plavix] 75 mg tablet 75 mg PO DIRECTED Qty: 90 3RF (DME) Custom Accomdative Diabetic shoe and custom insoles See Rx Instructions .Route .MEDSUPPLY Qty: 1 0RF Rx Instructions: As directed aspirin [Rosalee Low Dose Aspirin] 81 mg tablet,delayed release (DR/EC) 81 mg PO DAILY insulin glargine [Lantus Solostar U-100 Insulin] 100 unit/mL (3 mL) insulin pen 30 unit SUBCUT BID gabapentin 800 mg Tablet See Rx Instructions .ROUTE .COMPLEX Rx Instructions: 800 mg orally in the morning / 1600 mg orally in the evening isosorbide mononitrate 30 mg Tablet Extended Release 24 Hr 30 mg PO DAILY niacin 100 mg Tablet 100 mg PO DAILY Fish Oil 100-160-1,000 mg Capsule 1 cap PO DAILY garlic 200 mg Tablet 200 mg PO DAILY chromium aa [id number]-nwgk 200-5-25 mcg-mg-mg Tablet 1 tab PO DAILY furosemide 40 mg tablet 40 mg PO BIDWM Qty: 90 0RF Discharge Orders: Discharge ED (Routine); Ordered 05/23/24 Ordered By: Steven Benítez Referrals: Fiona Stevens MD [Primary Care Provider] - Discharge Diet: Advance as tolerated Discharge Activity: Resume usual activity Patient Instructions: Opioid Safety, Pain Management, Diabetic Neuropathy (ED) Activity Restrictions/Additional Instructions: Please follow-up with Dr. Colin. Please return to the emergency department for new, concerning, worsening symptoms Coding Level of Care Code ED Specialty Sales Representative for Uri Narayan
[2024-05-23] MEDS: ketorolac 30 mg/mL INJ IM (15:55)
[2024-05-23] MEDS: dexamethasone 10 mg/mL INJ IM (15:55)
[2024-05-23 15:57] VITALS: BP 142/63; PULSE 95; RESP 16; O2SAT 91
[2024-05-23 17:16] VITALS: BP 126/55; PULSE 90; RESP 16; O2SAT 92
== END 2024-05-23 16:57 | disposition home or self-care (01) ==
PROVIDERS: Emergency Provider Nurse Practitioner; PCP Family Medicine
DX: G62.9 Polyneuropathy, unspecified (principal); Z79.02 Long term (current) use of antithrombotics/antiplatelets; Z79.4 Long term (current) use of insulin; Z87.891 Personal history of nicotine dependence; E13.22 Other specified diabetes mellitus with diabetic chronic kidney disease; I12.9 Hypertensive chronic kidney disease with stage 1 through stage 4 chronic kidney disease, or unspecified chronic kidney disease; N18.1 Chronic kidney disease, stage 1
CPT/HCPCS: 96372; 99284; J1100; J1885

== ENCOUNTER → 2024-06-30 08:46 | Outpatient (BNVA) | payer OTHER, SELFPAY | PROVIDERS: PCP Family Medicine; Visit Provider Podiatrist Foot & Ankle Surgery | DX: Z89.422 Acquired absence of other left toe(s); N18.1 Chronic kidney disease, stage 1; E13.9 Other specified diabetes mellitus without complications; L97.511 Non-pressure chronic ulcer of other part of right foot limited to breakdown of skin; Z89.411 Acquired absence of right great toe; Z89.412 Acquired absence of left great toe; Z79.4 Long term (current) use of insulin; E13.8 Other specified diabetes mellitus with unspecified complications; E13.69 Other specified diabetes mellitus with other specified complication; E13.621 Other specified diabetes mellitus with foot ulcer | CPT/HCPCS: 99213 ==

== ENCOUNTER → 2024-08-20 13:59 | Outpatient (BNVA) | payer OTHER, SELFPAY | PROVIDERS: PCP Family Medicine; Visit Provider Internal Medicine | DX: I25.10 Atherosclerotic heart disease of native coronary artery without angina pectoris (principal); I13.0 Hypertensive heart and chronic kidney disease with heart failure and stage 1 through stage 4 chronic kidney disease, or unspecified chronic kidney disease; E13.22 Other specified diabetes mellitus with diabetic chronic kidney disease; N18.1 Chronic kidney disease, stage 1; Z79.4 Long term (current) use of insulin; I50.43 Acute on chronic combined systolic (congestive) and diastolic (congestive) heart failure; Z87.891 Personal history of nicotine dependence | CPT/HCPCS: 99213 ==

== ENCOUNTER → 2024-09-29 08:45 | Outpatient (BNVA) | payer OTHER, SELFPAY | PROVIDERS: PCP Family Medicine; Visit Provider Podiatrist Foot & Ankle Surgery | DX: E13.22 Other specified diabetes mellitus with diabetic chronic kidney disease (principal); B35.1 Tinea unguium; L84 Corns and callosities; Z89.422 Acquired absence of other left toe(s); Z89.419 Acquired absence of unspecified great toe; N18.1 Chronic kidney disease, stage 1; Z79.4 Long term (current) use of insulin | CPT/HCPCS: 11056; 11721 ==

== ENCOUNTER → 2024-12-29 08:42 | Outpatient (BNVA) | payer OTHER, SELFPAY | PROVIDERS: PCP Family Medicine; Visit Provider Podiatrist Foot & Ankle Surgery | DX: E11.8 Type 2 diabetes mellitus with unspecified complications (principal); L84 Corns and callosities; B35.1 Tinea unguium; Z89.422 Acquired absence of other left toe(s); N18.1 Chronic kidney disease, stage 1; Z89.421 Acquired absence of other right toe(s); Z89.411 Acquired absence of right great toe; Z79.4 Long term (current) use of insulin | CPT/HCPCS: 11056; 11720 ==

== ENCOUNTER → 2025-02-24 15:15 | Outpatient (BNVA) | payer OTHER, SELFPAY | PROVIDERS: PCP Family Medicine; Visit Provider Internal Medicine | DX: I25.10 Atherosclerotic heart disease of native coronary artery without angina pectoris (principal); I11.0 Hypertensive heart disease with heart failure; I50.9 Heart failure, unspecified; Z79.02 Long term (current) use of antithrombotics/antiplatelets; Z79.82 Long term (current) use of aspirin; Z95.5 Presence of coronary angioplasty implant and graft; Z87.891 Personal history of nicotine dependence | CPT/HCPCS: 99214 ==

== ENCOUNTER → 2025-03-30 08:20 | Outpatient (BNVA) | payer OTHER, SELFPAY | PROVIDERS: PCP Family Medicine; Visit Provider Podiatrist Foot & Ankle Surgery | DX: E13.8 Other specified diabetes mellitus with unspecified complications (principal); B35.1 Tinea unguium; L84 Corns and callosities; Z89.422 Acquired absence of other left toe(s); N18.1 Chronic kidney disease, stage 1; Z89.411 Acquired absence of right great toe; Z89.412 Acquired absence of left great toe; E13.22 Other specified diabetes mellitus with diabetic chronic kidney disease; Z79.4 Long term (current) use of insulin | CPT/HCPCS: 11056; 11721 ==